=== PATIENT | female | born 1945 | race Caucasian/White ===

== ENCOUNTER 2016-08-30 08:03 | Day surgery (SDC) | payer MEDICARE ==
[~2016-08-30] VITALS: Ht 161.3 cm; Wt 69.6 kg
[~2016-08-30 08:03] MED LIST: AMBIEN10 MG PO; ATORVASTATIN CA20 MG PO; BUSPIRONE HCL5 MG PO; CALCIUM CITRAT1 EA14 PO; GABAPENTIN300 MG PO; MELOXICAM15 MG PO; OMEPRAZOLE40 MG PO; ONDANSETRON ODT4 MG SL; VITAMIN D34000 UNIT PO
[2016-08-30] MEDS ORDERED: GABAPENTIN100 MG PO (08:24)
--- NOTE | 2016-08-30 11:00 | NUR ---
08/30/16 1100 Sarah Velazquez 1055 PATIENT IS RESTING WITH EYES CLOSED. OPENS EYES AND ANSWERS QUESTIONS APPROPRIATELY WITH STIMULI. C/O ABD CRAMPING, ENCOURAGED TO PASS GAS. ABD DISTENDED. NC AT 2 LITERS. 1100 PATIENT TAKING SIPS OF WATER, DENIES NAUSEA. ROOM AIR AT 95%
--- NOTE | 2016-10-05 10:25 | OR ---
[facility] [address] [place], [place] [address] Signed DATE OF PROCEDURE: 08/30/16 PREOPERATIVE DIAGNOSES Diarrhea. History of colonic polyp, rectosigmoid in 2008, and known diverticulosis. POSTOPERATIVE DIAGNOSIS: Sigmoid diverticulosis. PROCEDURE: Total colonoscopy of cecum. ANESTHESIA: Intravenous sedation, Fentanyl 150 mcg, Versed 7 mg. INDICATION This 70-year-old white woman is a patient of Lisa Vázquez PA-C, and has had complaints of diarrhea. There was no blood per rectum. She underwent a colonoscopy in [address] Mitchell Valverde, and possibly a repeat in 2010, though I am not entirely sure. She has had left lower abdominal pain in the past and currently has occasions of diarrhea but without associated bleeding. She has no family history of colon cancer. She is admitted to undergo a surveillance colonoscopy and understands the risk of bleeding, infection, perforation. FINDINGS Prep was quite good. Complete colonoscopy was undertaken to the cecum. There was no evidence of polyps or colitis. She did have diverticulosis of the sigmoid. DESCRIPTION OF PROCEDURE The patient was brought to the endoscopy suite and placed in the lateral decubitus position, given intravenous sedation to the point of slurred speech and nystagmus. Digital rectal examination was normal. An Olympus video colonoscop e was passed in the rectum and manipulated throughout the colon ultimately intubating the cecum itself. The tissue behind the ileocecal valve was grasped and elevated to be sure there was no sign of polyp behind it. The scope was withdrawn from that point , and examination throughout showed no sign of abnormality until the sigmoid or diverticula were noted. There was no sign of ongoing inflammation, stricture, or other problem. Retroflex view of the rectum was normal. The scope was removed, and the patient was taken to the recovery room in good condition. CONCLUDING DIAGNOSES: Diverticulosis, no evidence of polyps or colitis. PLAN Recommended high-fiber diet or Citrucel 1 tablespoon p.o. daily. Electronically Signed By: GABRIELLA ATKINS MD 10/05/16 1025 PATIENT NAME: EDER NIX OPERATIVE REPORT DATE OF : 41 PHYSICIAN: GABRIELLA ATKINS MD REPORT #: [id number] REPORT IS CONFIDENTIAL AND NOT TO BE RELEASED WITHOUT AUTHORIZATION [address] [place], [place] [address] Signed She will return to the ongoing care of RO Ramos. I am happy to see her again as needed. MD KINZA Deleon/Dilshad /[id number] cc: Lisa Vázquez PA-C Electronically Signed By: GABRIELLA ATKINS MD 10/05/16 1025 PATIENT NAME: EDER NIX OPERATIVE REPORT DATE OF : 41 PHYSICIAN: GABRIELLA ATKINS MD REPORT #: [id number] REPORT IS CONFIDENTIAL AND NOT TO BE RELEASED WITHOUT AUTHORIZATION
== END 2016-08-30 11:30 | disposition home or self-care (01) ==
LOC: DS 08:03 → OPS 08:03 → DS 09:00 → OPS 09:00 → DS 10:00 → OPS 11:30
PROVIDERS: Surgery
PROC: 0DJD8ZZ Inspection of Lower Intestinal Tract, Via Natural or Artificial Opening Endoscopic (ICD-10-PCS; principal; 2016-08-30 09:00)
DX: K57.30 Diverticulosis of large intestine without perforation or abscess without bleeding (principal); K21.9 Gastro-esophageal reflux disease without esophagitis; Z86.010 Personal history of colon polyps; Z85.3 Personal history of malignant neoplasm of breast; Z85.528 Personal history of other malignant neoplasm of kidney; Z88.1 Allergy status to other antibiotic agents; Z90.710 Acquired absence of both cervix and uterus; Z90.13 Acquired absence of bilateral breasts and nipples; Z98.41 Cataract extraction status, right eye; Z98.42 Cataract extraction status, left eye; Z98.890 Other specified postprocedural states
CPT/HCPCS: 99152; 99153; J2250; J3010; J7120

== ENCOUNTER 2018-12-21 12:59 | Day surgery (SDC) | payer MEDICARE ==
[~2018-12-21] VITALS: Ht 161.3 cm; Wt 69.4 kg
--- NOTE | ~2018-12-21 | OR ---
[facility] [address] [place], [place] [address] Draft DATE OF OPERATION: 12/21/2018 SURGEON: Gabriella Atkins MD PREOPERATIVE DIAGNOSIS: Cervical dysphagia with excessive "phlegm" and upper gastrointestinal symptoms of bloating. POSTOPERATIVE DIAGNOSES: 1. Small hiatal hernia. 2. Mild distal esophagitis with minimal length Suarez epithelium. PROCEDURE PERFORMED: Esophagogastroduodenoscopy with biopsy. ANESTHESIA: Intravenous sedation, fentanyl 100 mcg, Versed 3 mg. INDICATIONS: A 73-year-old white woman is a patient of Valencia Urias MD, at [facility]. She is known to me from the past. She has vague and nonspecific symptoms of upper abdominal bloating. The patient takes omeprazole 40 mg daily already. She has been noted to have short-segment Suarez epithelium on previous upper endoscopy. She continues to take omeprazole on a daily basis. She is admitted to undergo upper endoscopy to better characterize her symptoms of excessive phlegm and cervical dysphagia. She understands the risk of bleeding, infection, and perforation. FINDINGS: There are no anatomic findings to account for any cervical dysphagia. Biopsies were taken in the midesophagus to assess for eosinophilic esophagitis. She does have a small hiatal hernia and very short segment Suarez epithelium, but nothing worrisome in appearance. Stomach and duodenum appeared normal. Biopsies were obtained. She does have a small hiatal hernia. The vocal cords appeared normal. There is no proximal anatomic abnormality of tumor or other similar problem. DESCRIPTION OF PROCEDURE: The patient was brought to the endoscopy suite, given topical Hurricaine spray, hypopharyngeal anesthesia, and placed in lateral decubitus position. She was given intravenous sedation to the point of slurred speech and nystagmus. A bite block was placed. An Olympus video upper endoscope was passed in the hypopharynx. Vocal cords PATIENT NAME: EDER NIX OPERATIVE REPORT DATE OF : 41 REPORT #: [id number] PHYSICIAN: GABRIELLA ATKINS MD PCP: VALENCIA URIAS MD REPORT IS CONFIDENTIAL AND NOT TO BE RELEASED WITHOUT AUTHORIZATION [facility] [address] [place], [place] [address] Draft visualized as normal overall. There was no sign of excessive phlegm or secretions at this time. Scope was advanced to the esophagus without problem, passing down the esophagus which appeared normal. The distal portion showed a Suarez like epithelial segment, not extensively long. Narrow band imaging was undertaken to ascertain this. The scope was then passed in the stomach, which was insufflated with air. There was no sign of bile within the stomach. Rugal folds appeared normal. Pylorus was normal. Scope was passed through into the duodenum, which was normal. Biopsies were taken of the duodenum to assess for celiac disease and withdrawn and biopsies then taken of the antrum for both FUNMILAYO and pathologic testing. Retroflexed view showed a small hiatal hernia, but not much early. Scope was withdrawn to the distal esophagus. Biopsies were taken of the distal esophageal mucosa, which did not have the "Z-line appearance," but rather a straight-line appearance. Withdrawal of scope to the mid esophagus allowed for biopsy to assess for eosinophilic esophagitis and biopsies undertaken of more proximal esophagus as well. Careful inspection of the hypopharynx showed no sign of lesion. The scope was ultimately removed. The patient was taken to recovery room in good condition. CONCLUDING DIAGNOSIS: No evidence of stricture or neoplasm of proximal or distal esophagus to account for her current symptoms of excess of phlegm and cervical dysphagia. PLAN: We will await the biopsies regarding the esophagus in particular to assess for eosinophilic esophagitis. In the meantime, we will recommend continued use of omeprazole 40 mg daily. She will call and follow up for 6 weeks or so. MD KINZA Deleon/MODL /[id number] cc: Valencia Urias MD Copies: VALENCIA URIAS DMD PATIENT NAME: EDER NIX OPERATIVE REPORT DATE OF : 41 REPORT #: [id number] PHYSICIAN: GABRIELLA ATKINS MD PCP: VALENCIA URIAS MD REPORT IS CONFIDENTIAL AND NOT TO BE RELEASED WITHOUT AUTHORIZATION [facility] [address] [place] [address] [place], [place] [address] Draft ~ PATIENT NAME: EDER NIX OPERATIVE REPORT DATE OF : 41 REPORT #: [id number] PHYSICIAN: GABRIELLA ATKINS MD PCP: VALENCIA URIAS MD REPORT IS CONFIDENTIAL AND NOT TO BE RELEASED WITHOUT AUTHORIZATION
[~2018-12-21 12:59] MED LIST changes: +GABAPENTIN100 MG PO
--- NOTE | 2018-12-21 14:26 | NUR ---
12/21/18 1426 Danna Culver 1413- PT ARRIVES TO PACU AWAKE, ALTHOUGH DROWSY. RESP EVEN AND UNLABORED. OXYGEN SAT HIGH 90'S TO 100% ON 2L VIA NC. PT REPORTS NO PAIN OR NAUSEA. 1416- PT PASSING FLATUS. 1422- DR. ATKINS AT THE BEDSIDE TO TALK WITH THE PT. 1424- OXYGEN TITRATED OFF.
--- NOTE | 2018-12-22 13:17 | PATH ---
[facility] [address] [place], [place] [address] Signed SPECIMEN(S): A DUODENUM SPECIMEN(S): B ANTRUM SPECIMEN(S): C GASTRIC POLYP SPECIMEN(S): D DISTAL LOWER ESOPHAGUS SPECIMEN(S): E MIDDLE ESOPHAGUS SPECIMEN SOURCE: A. DUODENUM B. ANTRUM C. GASTRIC POLYP D. DISTAL LOWER ESOPHAGUS E. MIDDLE ESOPHAGUS CLINICAL HISTORY: Preop: Suarez's esophagus. Postop: Small hiatal hernia, mild esophagitis. MICROSCOPIC DESCRIPTION: A, B, C. Histologic sections of all submitted blocks are examined by light microscopy. These findings, together with the gross examination, support the pathologic diagnosis. D. Sections reveal a biopsy of esophageal mucosa composed of stratified squamous nonkeratinizing epithelium. The basal cell layer is not prominent and rete ridges are not elongated. A few intraepithelial lymphocytes are present. Intraepithelial eosinophils are not a feature. No glandular mucosa is present. There is no evidence of malignancy or atypia. E. Sections reveal a biopsy of esophageal mucosa histologically similar to that described above in D. There is no evidence of malignancy or atypia. LJA:cml FINAL PATHOLOGIC DIAGNOSIS: A. Mucosa, duodenum, biopsy: - Duodenal mucosa with normal villiform architecture, no microscopic pathologic diagnosis. B. Mucosa, antrum, biopsy: - No microscopic pathologic diagnosis. - Negative for the presence of bacteria morphologically consistent with Helicobacter on HE stained sections. C. Mucosa, stomach, biopsy: - Fundic gland polyp. - Negative for malignancy and atypia. D. Mucosa, distal lower esophagus, biopsy: PATIENT NAME: EDER NIX PATHOLOGY DATE OF : 41 REPORT #: [id number] PHYSICIAN: DWAYNE CORTES PCP: VALENCIA URIAS MD REPORT IS CONFIDENTIAL AND NOT TO BE RELEASED WITHOUT AUTHORIZATION [facility] [address] [place], [place] [address] Signed - No microscopic pathologic diagnosis. E. Mucosa, mid esophagus, biopsy: - No microscopic pathologic diagnosis. LJA:cml:C2NR GROSS DESCRIPTION: Five specimens are received in five containers, labeled "RA." A. The specimen, labeled "RA, duodenal biopsy," is received in formalin and consists of two pink-blackman soft tissue fragment(s) that measure 0.2-0.3 cm in greatest dimension. The specimen is entirely submitted in cassette (A1). B. The specimen, labeled "RA, antrum biopsy," is received in formalin and consists of two pink-blackman soft tissue fragment(s) that measure 0.2-0.3 cm in greatest dimension. The specimen is entirely submitted in cassette (B1). C. The specimen, labeled "RA, gastric polyp," is received in formalin and consists of one pink-blackman soft tissue fragment that measures 0.2 cm in greatest dimension. The specimen is entirely submitted in cassette (C1). D. The specimen, labeled "RA, distal esophagus biopsy," is received in formalin and consists of one pink-blackman soft tissue fragment that measures 0.2 cm in greatest dimension. The specimen is entirely submitted in cassette (D1). E. The specimen, labeled "RA, middle esophagus biopsy," is received in formalin and consists of two pink-blackman soft tissue fragment(s) that measure 0.2-0.3 cm in greatest dimension. The specimen is entirely submitted in cassette (E1). JS (under the direct supervision of a pathologist) The Gross Description was prepared using a voice recognition system. The report was reviewed for accuracy; however, sound-alike word errors, addition and/or deletions may occur. If there is any question about this report, please contact Client Services. PERFORMING LABORATORY: The technical component was performed by [id number] [address] (Can Pusher: Margaux Felder MD; CLIA# [id number]). Professional interpretation was performed by [facility], [address] [address] (Can Pusher: Jose Dutta MD; CLIA# [id number]). PATIENT NAME: EDER NIX PATHOLOGY DATE OF : 41 REPORT #: [id number] PHYSICIAN: DWAYNE CORTES PCP: VALENCIA URIAS MD REPORT IS CONFIDENTIAL AND NOT TO BE RELEASED WITHOUT AUTHORIZATION [facility] [address] [place], [place] [address] Signed Diagnostician: Jose Dutta MD Pathologist Electronically Signed 12/22/2018 Copies: ~ PATIENT NAME: EDER NIX PATHOLOGY DATE OF : 41 REPORT #: [id number] PHYSICIAN: DWAYNE PATHOLOGY PCP: VALENCIA URIAS MD REPORT IS CONFIDENTIAL AND NOT TO BE RELEASED WITHOUT AUTHORIZATION
== END 2018-12-21 15:10 | disposition home or self-care (01) ==
LOC: OPS 12:59 → DS 13:03 → OPS 14:00
PROVIDERS: Surgery
PROC: 0DB78ZX Excision of Stomach, Pylorus, Via Natural or Artificial Opening Endoscopic, Diagnostic (ICD-10-PCS; 2018-12-21)
PROC: 0DB68ZX Excision of Stomach, Via Natural or Artificial Opening Endoscopic, Diagnostic (ICD-10-PCS; 2018-12-21)
PROC: 0DB38ZX Excision of Lower Esophagus, Via Natural or Artificial Opening Endoscopic, Diagnostic (ICD-10-PCS; 2018-12-21)
PROC: 0DB28ZX Excision of Middle Esophagus, Via Natural or Artificial Opening Endoscopic, Diagnostic (ICD-10-PCS; 2018-12-21)
PROC: 0DB98ZX Excision of Duodenum, Via Natural or Artificial Opening Endoscopic, Diagnostic (ICD-10-PCS; principal; 2018-12-21 14:00)
DX: K31.7 Polyp of stomach and duodenum (principal); K21.0 Gastro-esophageal reflux disease with esophagitis; K22.70 Barrett's esophagus without dysplasia; K44.9 Diaphragmatic hernia without obstruction or gangrene; Z88.1 Allergy status to other antibiotic agents; Z85.3 Personal history of malignant neoplasm of breast; Z85.528 Personal history of other malignant neoplasm of kidney
CPT/HCPCS: 99153; G0500; J2250; J3010; J7120

== ENCOUNTER 2019-06-13 07:18 | Emergency (ER) | payer MEDICARE ==
[~2019-06-13] VITALS: Ht 161.3 cm; Wt 67.6 kg
--- OUTSIDE RECORDS SUMMARY | 2019-06-13 07:22 | XMS ---
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 Gadiel has no Care Guidelines for this patient. Ángel VISIT COUNT (12 MO.) 1 KRISTEN Adam TOTAL 1 NOTE: Visits indicate total known visits. ED/UCC VISIT TRACKING (12 MO.) 06/13/2019 07:19 KRISTEN Martel [place] TYPE: Emergency COMPLAINT: - ABD / BACK PAIN INPATIENT VISIT TRACKING (12 MO.) No inpatient visits to display in this time frame [email or web address]
[2019-06-13] MEDS ORDERED: BUSPIRONE HCL5 MG PO (07:50)
[2019-06-13] MEDS ORDERED: METHOCARBAMOL500 MG PO (07:50)
[2019-06-13] MEDS ORDERED: FLOMAX0.4 MG PO (10:17)
[2019-06-13] MEDS ORDERED: NORCO 5-325 TA1 EACH PO (10:17)
[2019-06-13] MEDS ORDERED: ONDANSETRON ODT4 MG SL (10:17)
== END 2019-06-13 12:45 | disposition home or self-care (01) ==
LOC: ED 07:18
DX: N13.2 Hydronephrosis with renal and ureteral calculous obstruction (principal); F41.9 Anxiety disorder, unspecified; Z88.1 Allergy status to other antibiotic agents; Z79.899 Other long term (current) drug therapy
CPT/HCPCS: 74176; 80053; 81001; 85025; 96361; 96374; 96375; 96376; 99284-25; J1885; J2270; J2405; J2550; J7040

== ENCOUNTER 2019-08-30 11:52 | Emergency (ER) | payer MEDICARE ==
[~2019-08-30] VITALS: Ht 161.3 cm; Wt 67.8 kg
--- OUTSIDE RECORDS SUMMARY | ~2019-08-30 | XMS | Encounter Summary ---
Demographics + + + | Address | [address] | | | [place] [address] | + + + | Home Phone | | + + + | Preferred Language | Unknown | + + + | Marital Status | | + + + | Spiritism Affiliation | CHR | + + + | Race | White | + + + | Ethnic Group | Not or | + + + Author + + + | Author | [facility] | + + + | Organization | [facility] | + + + | Address | Unknown | + + + | Phone | Unavailable | + + + Support + + + + + | Name | Relationship | Address | Phone | + + + + + | Taye Dennis | ECON | [address] | | | | | [place] | | | | | [address] | | + + + + + Care Team Providers + +------+ + | Care Security Coordinator Name | Role | Phone | + +------+ + | Miriam Treadwell | PCP | | + +------+ + Encounter Details +--------+ + + + + | Date | Type | Department | Care Team | Description | +--------+ + + + + | 04/10/ | Document-Sc | UNKNOWN DEPARTMENT | Unknown . | | | 2016 | anned | [address] | | | | | | [address] | | | | | | [place] | | | | | | [address] | | | +--------+ + + + + Social History + +-------+ +--------+------+ | Tobacco Use | Types | Packs/Day | Years | Date | | | | | Used | | + +-------+ +--------+------+ | Never Assessed | | | | | + +-------+ +--------+------+ + + + | Sex Assigned at | Date Recorded | | | | + + + | Not on file | | + + + + + + + | Job Start Date | Occupation | Industry | + + + + | Not on file | Not on file | Not on file | + + + + + + + + | Travel History | Travel Start | Travel End | + + + + + + | No recent travel history available. | + + documented as of this encounter Plan of Treatment Not on filedocumented as of this encounter Procedures + +--------+ + + + | Procedure Name | Priori | Date/Time | Associated Diagnosis | Comments | | | ty | | | | + +--------+ + + + | RADIOLOGY | | 04/10/2015 | | Results for this | | | | 12:00 AM | | procedure are in the | | | | PST | | results section. | + +--------+ + + + documented in this encounter Results RADIOLOGY (04/10/2015 12:00 AM PST) + + + | Narrative | Performed At | + + + | | | + + + documented in this encounter Visit Diagnoses Not on filedocumented in this encounter"
--- OUTSIDE RECORDS SUMMARY | ~2019-08-30 | XMS | Encounter Summary ---
Demographics + + + | Address | [address] | | | [place] [address] | + + + | Home Phone | | + + + | Preferred Language | Unknown | + + + | Marital Status | | + + + | Hinduism Affiliation | CHR | + + + | Race | White | + + + | Ethnic Group | Not or | + + + Author + + + | Author | [facility] | + + + | Organization | [facility] | + + + | Address | Unknown | + + + | Phone | Unavailable | + + + Support + + + + + | Name | Relationship | Address | Phone | + + + + + | Taye Dennis | ECON | [address] | | | | | [place] | | | | | [address] | | + + + + + Care Team Providers + +------+ + | Care Qa Analyst Name | Role | Phone | + +------+ + | Miriam Treadwell | PCP | | + +------+ + Reason for Visit +--------+ + | Reason | Comments | +--------+ + | Other | | +--------+ + Encounter Details +--------+ + + + + | Date | Type | Department | Care Team | Description | +--------+ + + + + | 08/21/ | Telephone | Orthopaedics at | Suman Gavin, | Other | | 2016 | | [facility] [address] | MD [address] | | | | | [address] | [place], [place] | | | | | Mailcode: [id number] | [address] | | | | | [facility] | [phone] | | | | | [place], [place] | | | | | | [address] | | | | | | [phone] | | | +--------+ + + + + Social History + +-------+ +--------+------+ | Tobacco Use | Types | Packs/Day | Years | Date | | | | | Used | | + +-------+ +--------+------+ | Never Smoker | | | | | + +-------+ +--------+------+ + +---+---+---+ | Smokeless Tobacco: | | | | | Never Used | | | | + +---+---+---+ + + +---------+ + | Alcohol Use | Drinks/Week | oz/Week | Comments | + + +---------+ + | No | 0 Standard drinks | 0.0 | | | | or equivalent | | | + + +---------+ + + + + | Sex Assigned at [...] Not on filedocumented as of this encounter Visit Diagnoses Not on filedocumented in this encounter"
--- OUTSIDE RECORDS SUMMARY | ~2019-08-30 | XMS | Clinical Summary ---
Demographics + + + | Address | [address] | | | [place] [address] | + + + | Home Phone | | + + + | Preferred Language | Unknown | + + + | Marital Status | | + + + | Moravian Affiliation | 1041 | + + + | Race | Unknown | + + + | Ethnic Group | Unknown | + + + Author + + + | Author | [facility] | | | and [place] | + + + | Organization | [facility] | | | and Sameerana | + + + | Address | Unknown | + + + | Phone | Unavailable | + + + Support + + + + + | Name | Relationship | Address | Phone | + + + + + | Bossman Renee | ECON | [address] | | | | | [place], [place] | | | | | [address] | | + + + + + | Bayron Dennis | ECON | [address] | | | | | [place], [place] | | | | | [address] | | + + + + + Care Team Providers + +------+ + | Care Family Services Manager Name | Role | Phone | + +------+ + | Raymundo Anderson | PCP | | + +------+ + Allergies + + + + + + | Active Allergy | Reactions | Severity | Noted | Comments | | | | | Date | | + + + + + + | Ciprofloxacin | Unknown | | 05/22/19 | | | | | | 16 | | + + + + + + | Codeine | Nausea And Vomiting | Low | 04/28/19 | | | | | | 15 | | + + + + + + | Metronidazole | Unknown | | 05/22/19 | | | | | | 16 | | + + + + + + | Trazodone | | | 05/27/19 | lethargy | | | | | 13 | | + + + + + + Medications + + + +---------+------+------+-------+ | Medication | Sig | Dispensed | Refills | Star | End | Statu | | | | | | t | Date | s | | | | | | Date | | | + + + +---------+------+------+-------+ | cholecalciferol | Take 1,000 Units by | | 0 | 09/1 | | Activ | | ([facility] VITAMIN D3) | mouth 2 times daily. | | | 2/20 | | e | | 1000 UNITS CAPS | | | | 12 | | | + + + +---------+------+------+-------+ | omeprazole | Take 40 mg by mouth | | 0 | 09/1 | | Activ | | (PRILOSEC) 40 MG | Daily. | | | 2/20 | | e | | capsule | | | | 12 | | | + + + +---------+------+------+-------+ | calcium | Take by mouth 2 | | 0 | 09/1 | | Activ | | citrate-vitamin D | times daily. | | | 2/20 | | e | | (CITRACAL MAXIMUM) | | | | 12 | | | | 315-250 MG-UNIT TABS | | | | | | | + + + +---------+------+------+-------+ | Cyanocobalamin | Take 1,000 mcg by | | 0 | 11/01 | | Activ | | (B-12 TR) 1000 MCG | mouth Daily. | | | 220 | | e | | TBCR | | | | 12 | | | + + + +---------+------+------+-------+ | zolpidem (AMBIEN) | Take 1 tablet by | 30 | 3 | 12/01 | | Activ | | 10 mg tablet | mouth nightly as | tablet | | 08/20 | | e | | | needed. | | | 12 | | | + + + +---------+------+------+-------+ +---+ + | | Additional | | | InformationPatient | | | taking differently: | | | 5 mg Oral NIGHTLY | | | PRN, Reported on | | | 02/17/2019 9:36 AM | +---+ + + + +---+---+------+---+-------+ | methocarbamol | TAKE 1 TABLET BY | | 0 | 08/0 | | Activ | | (ROBAXIN) 500 mg | MOUTH EVERY 6 HOURS | | | 8/20 | | e | | tablet | NEEDED FOR MUSCLE | | | 19 | | | | | SPASM | | | | | | + + +---+---+------+---+-------+ | busPIRone (BUSPAR) | TAKE 1 TABLET BY | | 0 | 12/0 | | Activ | | 5 mg tablet | MOUTH THREE TIMES | | | 5/20 | | e | | | DAILY | | | 19 | | | + + +---+---+------+---+-------+ | acetaminophen | Take 650 mg by | | 0 | | | Activ | | (TYLENOL) 325 mg | mouth. | | | | | e | | tablet | | | | | | | + + +---+---+------+---+-------+ | gabapentin | Take 200 mg by | | 0 | 06/1 | | Activ | | (NEURONTIN) 100 mg | mouth. | | | 5/20 | | e | | capsule | | | | 16 | | | + + +---+---+------+---+-------+ | atorvaSTATin | Take 20 mg by mouth | | 0 | | | Activ | | (LIPITOR) 20 mg | nightly. | | | | | e | | tablet | | | | | | | + + +---+---+------+---+-------+ | CALCIUM-MAGNESIUM | Take 100 mg by | | 0 | | | Activ | | PO | mouth. | | | | | e | + + +---+---+------+---+-------+ | fluticasone | 1 spray by Nasal | | 0 | | | Activ | | (FLONASE) 50 | route Daily. 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 | + + + | SNORING | 05/14/2011 | + + + | HYPERCHOLESTEROLEMIA | 05/14/2011 | + + + | RESTLESS LEG SYNDROME | 05/14/2011 | + + + | OTHER ANXIETY STATES | 05/14/2011 | + + + | ORGANIC INSOMNIA UNSPECIFIED | 05/14/2011 | + + + + + | Overview: ICD-10 Record update | + + + + + | Renal cell carcinoma | 03/20/2005 | + + + + + | Overview: Laparoscopic partial nephrectomy performed 03/12/05 | + + Family History + + +------+ + | Medical History | Relation | Name | Comments | + + +------+ + | Alcohol abuse | Mother | | | + + +------+ + | Depression | Mother | | | + + +------+ + | Depression | Sister | | BiPolar Disorder | + + +------+ + | Drug abuse | Sister | | | + + +------+ + | Obesity | Sister | | | + + +------+ + + +------+ + + | Relation | Name | Status | Comments | + +------+ + + | Father | | | of "old age" | | | | (Age | | | | | 92) | | + +------+ + + | Maternal Aunt | | Alive | | + +------+ + + | Mother | | | alcoholism and bipolar | | | | (Age | | | | | 71) | | + +------+ + + | Sister | | Alive | | + +------+ + + | Son | | Alive | | + +------+ + + Social History + +-------+ +--------+------+ [...] + + +---------+ + | No | | | | + + +---------+ + + + + | Sex Assigned at | Date Recorded | | | | + + + | Not on file | | + + + Last Filed Vital Signs + + + + + | Vital Sign | Reading | Time Taken | Comments | + + + + + | Blood Pressure | 130/80 | 05/28/2012 9:19 AM | | | | | PDT | | + + + + + | Pulse | 74 | 05/28/2012 9:19 AM | | | | | PDT | | + + + + + | Temperature | 36.6 C (97.8 F) | 05/28/2012 9:19 AM | | | | | PDT | | + + + + + | Respiratory Rate | 16 | 05/28/2012 9:19 AM | | | | | PDT | | + + + + + | Oxygen Saturation | - | - | | + + + + + | Inhaled Oxygen | - | - | | | Concentration | | | | + + + + + | Weight | 69.9 kg (154 lb) | 02/17/2019 9:22 AM | | | | | PST | | + + + + + | Height | 161.3 cm (5' 3.5") | 02/17/2019 9:22 AM | | | | | PST | | + + + + + | Body Mass Index | 26.85 | 02/17/2019 9:22 AM | | | | | PST | | + + + + + Plan of Treatment + + + + + | Health Maintenance | Due Date | Last | Comments | | | | Done | | + + + + + | Vaccine: | | | | | Dtap/Tdap/Td (1 - | 3 | | | | Tdap) | | | | + + + + + | Vaccine: | | | | | Pneumococcal 65+ (1 | 9 | | | | of 1 - PPSV23) | | | | + + + + + | Vaccine: Zoster (2 | | 04/09/19 | | | of 3) | 9 | 19 | | + + + + + | Colorectal Cancer | | 11/25/19 | | | Screening | 9 | 09 | | | (Colonoscopy) | | | | + + + + + | Adult Annual | | | | | Wellness Visit | 9 | | | + + + + + | Vaccine: Influenza | Completed | 12/01/19 | | | | | 19, | | | | | 12/06/19 | | | | | 18, | | | | | 11/30/19 | | | | | 17, | | | | | Addition | | | | | al | | | | | history | | | | | exists | | + + + + + Results Not on filefrom Last 3 Months Insurance + +--------+ +--------+ +---------+--------+ | Payer | Benefi | Subscriber | Effect | Phone | Address | Type | | | t Plan | ID | yovany | | | | | | / | | Dates | | | | | | Group | | | | | | + +--------+ +--------+ +---------+--------+ | MEDICARE | MEDICA | [id number] | 08/02/19 | [phone] | | Medica | | | RE | | 09-Pre | 5 | | re | | | PART A | | sent | | | | | | AND B | | | | | | + +--------+ +--------+ +---------+--------+ | AARP | AARP | [id number] | 03/03/19 | [phone] | | Indemn | | | MDCR | | 11-Pre | 0 | | ity | | | SUPPL | | sent | | | | + +--------+ +--------+ +---------+--------+ + +--------+ +--------+ + + | Guarantor Name | Accoun | Relation to | Date | Phone | Billing Address | | | t Type | Patient | of | | | | | | | | | | + +--------+ +--------+ + + | Judi Dennis T | Person | Self [birth year] | [address] | | [address] | | 1946 | [phone] | [place] [address] | | | henry | | | 0 (Home) | | + +--------+ +--------+ + + Advance Directives + + + + + | Type | Date Recorded | Patient | Explanation | | | | Staff Technologist | | + + + + + | Power of | | | | | Physiology Teacher | | | | + + + + + | Advance | | | | | Directive | | | | + + + + +
--- OUTSIDE RECORDS SUMMARY | ~2019-08-30 | XMS | Encounter Summary ---
Demographics + + + | Address | [address] | | | [place] [address] | + + + | Home Phone | | + + + | Preferred Language | Unknown | + + + | Marital Status | | + + + | Hinduism Affiliation | CHR | + + + | Race | White | + + + | Ethnic Group | Not or | + + + Author + + + | Author | [facility] | + + + | Organization | [facility] | + + + | Address | Unknown | + + + | Phone | Unavailable | + + + Support + + + + + | Name | Relationship | Address | Phone | + + + + + | Taye Dennis | ECON | [address] | | | | | [place] | | | | | [address] | | + + + + + Care Team Providers + +------+ + | Care Fire Equipment Operator Name | Role | Phone | + +------+ + | Miriam Treadwell | PCP | | + +------+ + Encounter Details +--------+---------+ + + + | Date | Type | Department | Care Team | Description | +--------+---------+ + + + | 07/04/ | Office | Preoperative | Adelaida Maxwell, | Preop examination | | 2016 | Visit | Medicine Clinic at | COMMUNITY SERVICE OFFICER COORDINATOR [address] | (Primary Dx) | | | | MPV 4th Floor Day | [address] | | | | | Stay [address] | [place], [place] | | | | | [address] | [address] | | | | | Mailcode: [id number] | [phone] | | | | | Boris Hillman | | | | | | [address] [place], [place] | | | | | | [address] | | | | | | [phone] | | | +--------+---------+ + + + Anesthesia Record + + + + + | Procedure Name | Responsible | Anesthesia Start | Anesthesia Stop Time | | | Anesthesiologist | Time | | + + + + + | ARTHROSCOPYIC | Neel Díaz MD | 07/06/15 0727 | 07/06/15 1117 | | DEBRIDEMENT OF | | | | | SYNOVITIS RIGHT | | | | | ANTERIOR KNEE; OPEN | | | | | SYNOVECTOMY OF RIGHT | | | | | POSTERIOR KNEE AND | | | | | (Right Knee) | | | | + + + + + +----+---+ + + | Da | T | Event | Comment | | te | i | | | | | m | | | | | e | | | +----+---+ + + | 05 | 0 | Eq Check | Anesthesia machine checked Equipment verified | | /0 | 7 | | | | 5/ | 2 | | | | 20 | 0 | | | | 16 | | | | +----+---+ + + | | 0 | Pt. Check | Prior to anesthesia start, pt. Identified, examined, chart | | | 7 | | reviewed, PARQ held, anesthetic plan made or approved by | | | 2 | | attending anesthesiologist. NPO status confirmed as appropriate | | | 0 | | for procedure Preoperative evaluation: unchanged | +----+---+ + + | | 0 | An Start | | | | 7 | | | | | 2 | | | | | 7 | | | +----+---+ + + | | 0 | Quick Note | Umm Abdalla RECOVERY OPERATOR HELPER | | | 7 | | | | | 2 | | | | | 7 | | | +----+---+ + + | | 0 | An Start | | | | 7 | Data | | | | 3 | | | | | 0 | | | +----+---+ + + | | 0 | Eq Check | Anesthesia machine checked Equipment verified | | | 7 | | | | | 3 | | | | | 1 | | | +----+---+ + + | | 0 | Vitals | Monitors applied Vital signs checked Patient ready for anesthesia | | | 7 | Checked | | | | 3 | | | | | 1 | | | +----+---+ + + | | 0 | Std. Airway | | | | 7 | Mgt. | | | | 3 | | | | | 8 | | | +----+---+ + + | | 0 | Quick Note | OG tube placed | | | 7 | | | | | 4 | | | | | 0 | | | +----+---+ + + | | 0 | Abx | | | | 7 | Administere | | | | 4 | d | | | | 4 | | | +----+---+ + + | | 0 | Ready | | | | 7 | | | | | 4 | | | | | 4 | | | +----+---+ + + | | 0 | Timeout | | | | 8 | | | | | 0 | | | | | 3 | | | +----+---+ + + | | 0 | Incision | | | | 8 | | | | | 0 | | | | | 5 | | | +----+---+ + + | | 0 | an vania now | | | | 9 | | | | | 1 | | | | | 4 | | | +----+---+ + + | | 0 | Quick Note | Gauze placed in between patients tongue and metal holders. Turn | | | 9 | | prone head maintained in neutral position, on blue and white foam | | | 1 | | face pillow. Arms at pt sides during turn, superman arms on gel | | | 4 | | arm pads after turn. Face and eyes checked. Abdomen free of | | | | | pressure. Morris checked. Knees bent and feet padded. Bilat breath | | | | | sounds verified after turn. | +----+---+ + + | | 1 | Surgery end | | | | 1 | | | | | 0 | | | | | 4 | | | +----+---+ + + | | 1 | Quick Note | Jaw implant intact after turning the patient supine | | | 1 | | | | | 0 | | | | | 5 | | | +----+---+ + + | | 1 | An Extubate | Neuromuscular function Intact. Pharynx suctioned. Patient obeys | | | 1 | | commands. Adequate pulmonary mechanics. | | | 0 | | | | | 8 | | | +----+---+ + + | | 1 | an stop | | | | 1 | data | | | | 0 | | | | | 9 | | | +----+---+ + + | | 1 | Anesthesia | | | | 1 | End | | | | 1 | | | | | 7 | | | +----+---+ + + +------+ | Meds | +------+ + + + No medications | on file. | + + + + + | No agents on file. | + + + + | No blood administrations on file. | + + +--------+ + + + | Type | Details | Placement | Removal | +--------+ + + + | Periph | 07/06/15; 614; Right; Wrist; 20 | 07/06/15614 by | 07/07/15 0000 by | | eral | g; None; Positive; 07/07/15 | Kaylan Hayes RN | Bhargavi Echevarria RN | | IV | | | | +--------+ + + + | Urethr | 07/06/15; 39; Nolan Cordova RN; | 07/06/15 0739 by | 07/06/15 1035 by | | jazzy Morris; 16 Fr.; 5 mL; 07/06/15; | Renetta Lilly RN | Renetta Lilly RN | | [place] | 1035 | | | | er | | | | +--------+ + + + | Incisi | 07/06/15; 0903; Mery Gavin MD; | 07/06/15902 by | 12/20/16 0659 by | | on | Right; Anterior; knee; 12/20/16 | Renetta Lilly RN | Discontinued After | | | (Automatic cleanup per RA | | Discharge | | | 3006--contact admin for | | | | | questions.); 0659 (Automatic | | | | | cleanup per RA 3006--contact | | | | | admin for questions.) | | | +--------+ + + + | Incisi | 07/06/15; 0940; Right; Posterior; | 07/06/15 0940 by | 12/20/16 0659 by | | on | knee; 12/20/16 (Automatic | Servando Salguero RN | Discontinued After | | | cleanup per RA 3006--contact | | Discharge | | | admin for questions.); 0659 | | | | | (Automatic cleanup per RA | | | | | 3006--contact admin for | | | | | questions.) | | | +--------+ + + + | Incisi | 07/06/15; 0958; Mery De Luna MD; | 07/06/15957 by | 12/20/16 0659 by | | on | Right; Lateral, Anterior; knee; | Renetta Lilly RN | Discontinued After | | | 12/20/16 (Automatic cleanup per | | Discharge | | | RA 3006--contact admin for | | | | | questions.); 0659 (Automatic | | | | | cleanup per RA 3006--contact | | | | | admin for questions.) | | | +--------+ + + + | Incisi | 07/06/15; 0958; Mery Gavin MD; | 07/06/15 0958 by | 12/20/16 0659 by | | on | Right; Medial, Anterior; knee; | Renetta Lilly RN | Discontinued After | | | 12/20/16 (Automatic cleanup per | | Discharge | | | RA 3006--contact admin for | | | | | questions.); 0659 (Automatic | | | | | cleanup per RA 3006--contact | | | | | admin for questions.) | | | +--------+ + + + | Drain | 07/06/15; 1034; Mery Gavin MD; | 07/06/15 1034 by | 12/20/16 0659 by | | | Dylan (10 Fr.); Right; Posterior; | Renetta Lilly RN | Discontinued After | | | knee; 12/20/16 (Automatic | | Discharge | | | cleanup per RA 3006--contact | | | | | admin for questions.); 0659 | | | | | (Automatic cleanup per RA | | | | | 3006--contact admin for | | | | | questions.) | | | +--------+ + + + documented in this encounter Social History + +-------+ +--------+------+ | Tobacco [...] + + documented as of this encounter Last Filed Vital Signs + + + + + | Vital Sign | Reading | Time Taken | Comments | + + + + + | Blood Pressure | 132/78 | 07/05/2015 2:48 PM | | | | | PDT | | + + + + + | Pulse | 73 | 07/05/2015 1:53 PM | | | | | PDT | | + + + + + | Temperature | 36.9 C (98.4 F) | 07/05/2015 1:53 PM | | | | | PDT | | + + + + + | Respiratory Rate | 16 | 07/05/2015 1:53 PM | | | | | PDT | | + + + + + | Oxygen Saturation | 98% | 07/05/2015 1:53 PM | | | | | PDT | | + + + + + | Inhaled Oxygen | - | - | | | Concentration | | | | + + + + + | Weight | 71.2 kg (157 lb) | 07/05/2015 1:53 PM | | | | | PDT | | + + + + + | Height | 160 cm (5' 3") | 07/05/2015 1:53 PM | neck 31.5cm | | | | PDT | | + + + + + | Body Mass Index | 27.81 | 07/05/2015 1:53 PM | | | | | PDT | | + + + + + documented in this encounter Patient Instructions Patient Instructions Gladys Zafar - 07/05/2015 12:46 PM PDT PREOPERATIVE INSTRUCTIONS Empty stomach before surgery On the day BEFORE your surgery, drink plenty of fluids and stay well hydrated NOTHING to eat or drink after midnight the night before surgery. This includes water, coffee, candy, mints, gum. Medications Instructions On the evening before your surgery, take ALL your usual evening medications TAKE the following medications with a sip of water on the morning of surgery: Omeprazole Do NOT take the following medications on the morning of surgery: Vitamins or Minerals Other medications not specifically mentioned are at your discretion as to taking or not taking on the morning of surgery. Unless otherwise directed by your surgeon, do not take any Aspirin, vitamin E or non-marisa roidal anti-inflammatory (NSAIDs i.e. Advil, Aleve, Ibuprofen) or herbal supplements 7 days prior to your surgery. These drugs may interfere with normal blood clotting and may cause ex cessive bleeding and bruising during or after the surgery. If you need a pain medication for general purposes, use Tylenol as directed. OK to take it even on the morning of surgery, if needed. If you are in doubt about any medications that you are taking, please contact our office . Skin preparation to help avoid surgical site infections JANELL GUIDE TO GENERAL SKIN CLEANSING AT HOME BEFORE SURGERY Before you bathe or shower: ? Read the instructions given to you by your healthcare practitioner, and begin your genera l skin cleansing protocol as directed. ? Carefully read all directions on the product label. ? Hibiclens is not to be used on the head or face, keep out of the eyes, ears and mouth. ? Hibiclens is not to be used in the genital area. ? Hibiclens should not be used if you are allergic to chlorhexidine gluconate or any other ingredients in this preparation. *See Hibiclens label for full product information and precautions. When you bathe or shower the night before your surgery: ? If you plan to wash your hair, do so with your regular shampoo. Then rinse hair and body thoroughly to remove any shampoo residue. ? Wash your face with your regular soap or water only. ? Thoroughly rinse your body with warm water from neck down. ? Use Hibiclens as you would any other liquid soap. Please do not put the Hibiclens on a wa sh cloth, apply directly to the skin and wash gently. Apply the minimum amount of Hibiclens necessary to cover the skin. Leave the Hibiclens on your skin for 1 minute, then rinse off. ? Rinse thoroughly with warm water. ? Do not use your regular soap after applying and rinsing Hibiclens. When using Hibiclens for a second day in a row (morning of surgery, as soon as you wake up) : ? Shower/bathe again using Hibiclens in the same method as described above. ? Do not apply any lotions, deodorants, powders or perfumes to the body areas that have been cleaned with Hibiclens. Other Important Guidelines ? Do not shave the surgical area Do not smoke, drink alcohol or use recreational drugs for 24 hours before your surgery Watch for any change in your health condition. Let your surgeon know right away if you do not feel well. ? Do not wear makeup, perfume, lotions, deodorant, powder or hairspray. Do not wear any jewelry to the hospital. Wear loose, comfortable clothing. Leave all your valuables at home. Allow enough travel time so you re not late for your check in for surgery. ? Take a bath or shower and remember to shampoo your hair using your usual hair product bef ore your arrival at the hospital. Please remember to brush your teeth the night before and the morning of your procedure. Preventing post op complications while you are in the hospital Use an incentive spirometer or peep breathe to keep your lungs working properly an d to help prevent respiratory complications. It helps you take long, deep breaths. Use it at least once every hour while you are awake. Leg and feet exercises will maintain good circulation and help prevent blood clots in yo ur legs. Sometimes your doctor will order air compression stockings. Compressed air helps the circulation in your legs. Walking and moving will help stimulate normal circulation and deep breathing. After you r surgery, your nurse may ask you to sit, stand or walk. Surgery check-in location: Admitting - [facility], ninth floor lobby Surgery Check in Time: 5:30am Going Home Your surgical team will decide when you are medically ready to go home. If you stayed in the hospital after surgery, please arrange for your ride to come for yo u around 9AM on the day your doctor says you can go home. If you have questions or concerns after you go home, call your doctor s office. If it is after office hours, call the [facility] roving machine operator at [phone] and ask them to page him or h er. documented in this encounter Progress Notes Litzy Powers MA - 07/05/2015 2:21 PM PDT Venipuncture performed in clinic, blood sample obtained from Right forearm site Electronica lly signed by Litzy Powers MA at 07/05/2015 3:12 PM Adelaida Pineda FNP - 07/05/2015 2 :02 PM PDT PREOPERATIVE CONSULT NOTE Author: DACIA Salcedo Referring Physician: Suman Gavin MD Primary Care Provider: RO Lindsey Reason for Consult: Preoperative evaluation and risk assessment Proposed Procedure/Date: ARTHROSCOPY, DEBRIDEMENT SYNOVITIS RIGHT KNEE ANTERIOR; POSTERIOR SYNOVECTOMY RIGHT KNEE; EXPLORATION POPLITEAL VESSELS AND TIBIAL NERVE on 07/06/2015. HISTORY OF PRESENT ILLNESS: Judi Dennis is a 69 y.o. female here for preopera tive evaluation for above procedure. Pt has dx of SYNOVITIS, LIKELY PVNS RIGHT KNEE. Sympt oms related to the diagnosis: Patient with complains of Right knee pain. Pertinent medical history: Hyperlipidemia--well controlled on Atorvastatin. GERD--stable well managed with Omeprazole and diet; continue including morning day of medeiros rgery. Anxiety--well controlled with medication. Perioperative cardiac risks: None Functional Capacity: Moderate (4-10 mets) Prior complications of anesthesia: patient with PONV. No BP or blood draws in pt's Left arm . Deviated Right septum. ROS: Pulmonary: Hx of allergies. no cough no shortness of breath Pt. Has no asthma No dx of sleep apnea Cardiovascular: Walks a lot and works around her house, yard work. Denies sob, kirkpatrick or chest pain with activity or rest. Can do stairs but would experience pain in her Right knee. Able to lay flat on her back for 20-30 min at a time. Functional Capacity: Moderate - cyanosis, PND, palpitations, chest pressure and syncope no CAD no CHF no pacemaker GI/Hepatic: Hx of diverticulitis. no GI Bleed GERD Control: Well controlled No liver diseas e no hepatitis no OTHER GI : Hx of Renal cell carcinoma. Hx of kidney stones. no renal failure no dialysis Other : Types: genitourinary maligna ncy Endo: no Diabetes: Neurological: no seizures no HX CORTICOSTEROID psychiatric problem anxiety no dementia Current Pain Level: MS: arthritis Type: osteoarthritis Heme/Onc: Pt. has: no active bleeding no Bleeding diathesis / thrombotic bleeding Previous Transfusions: no transfusion hx Hx: no other heme, Malignancy: no cancer, Location: [place] is: Skin: No open wounds or sores No hx MRSA/VRE/Active skin infection Current medications reviewed / updated Current Medication List Name Sig ACETAMINOPHEN 325 MG TABLET Take 650 mg by mouth every four hours as needed. ATORVASTATIN 20 MG TABLET BUSPIRONE 5 MG TABLET OMEPRAZOLE 40 MG CAPSULE,DELAYED RELEASE Take by mouth. ZOLPIDEM 5 MG TABLET Allergies reviewed / updated Allergies Allergen Reactions Ciprofloxacin Unknown Metronidazole Unknown Past medical history reviewed / updated Past Medical History Diagnosis Date Renal cell carcinoma (HCC) 03/20/2005 Laparoscopic partial nephrectomy performed 03/12/05 Hyperlipemia Anxiety GERD (gastroesophageal reflux disease) Insomnia Past surgery reviewed and updated Past Surgical History Procedure Date Hysterectomy Jaw surgery 2001 implant Kidney surgery Carpal tunnel surgery Mastectomy complete 2002 Family history reviewed / updated Family History Problem Relation Cancer Father Cancer Mother Social history reviewed / updated History Substance Use Topics Smoking status: Never Smoker Smokeless tobacco: Never Used Alcohol Use: No PHYSICAL EXAM: Last Vitals: BP 132/78 | Pulse 73 | Temp (Src) 36.9 C (98.4 F) (Oral) | RR 16 | Ht 1.6 m (5' 3") | Wt 71.215 kg (157 lb) | SpO2 98% | BMI 27.82 kg/(m^2) Body mass index is 27.82 k g/(m^2). General: Patients general appearance: Healthy, Alert, No distress, Cooperative and Age appr opriate Head & Neck/Airway: NC/AT; PERRL; EOMI; nl appearing ears and nose. Neck ROM: full Neck Cir cumference: 31.5 cm. TM Distance:Normal Dentition: dentition is normal dentures-upper and dentures-lower Hatch: No Mallampati: II Mouth Opening: > = 3 cm C-Spine: normal Neck Anatomy: Normal Jaw Protrusio n: Normal, lower incisors can protrude past upper incisors Lung Exam: No respiratory distress. Normal breathing pattern. breath sounds normal Cardiac: No murmurs, gallops or rubs. Rhythm: regular Rate: normal Abdominal: General Findings: no abdominal tenderness and Nondistended Bowel Sounds: bowel s ounds are normal Musculoskeletal: Findings: tone normal Neuro/Psych: No focal neuro deficits; Alert and appropriate; nl affect. alert Findings: Press Set Up Person nial nerves 2-12 intact, Motor 5/5 strength globally with normal tone, Soft & sharp sensatio n normal, No tremor, Alert, oriented to person, place, time and Normal affect Integument: No open rashes or lesions noted. - lesion, rash and open wounds Color: pink Turgor: turgor normal Implants: None, Comments: Attention to Anesthesia: patient with PONV. No BP or blood draws in pt's Left arm . LABS & DATA REVIEWED/ORDERED Lab Results Component Value Date WBC 6.60 07/05/2015 HB 13.9 07/05/2015 HCT 41.0 07/05/2015 PLT 177 07/05/2015 MCV 87.2 07/05/2015 RDW 41.4 07/05/2015 Lab Results Component Value Date NA 139 03/14/2005 K 3.7 03/14/2005 CL 107 03/14/2005 BICARB 27 03/14/2005 BUN 11 03/14/2005 CR 1.2 03/14/2005 GLU 108 03/14/2005 CA 8.6 03/14/2005 Lab Results Component Value Date ABO O 03/11/2005 RH NEG 03/11/2005 No results found for: [id number] EKG: Personally reviewed. Sinus Rhythm HR:68 RR:882 MEDICAL DECISION MAKIN ACC/AHA Perioperative Cardiac Risk Stratification (assumes non-emergent, non-cardiac p rocedure) Are active cardiac conditions present? No Calculate the combined surgical and patient-specific risk: using the Winston perioperative ca ia risk calculator, the risk of major adverse cardiac event (MACE) is: less than 1%. No further risk stratification for coronary disease is indicated. ASSESSMENT and RECOMMENDATIONS: Surgical/anesthesia risk assessment: Judi Dennis is a 69 y.o. female with diagnosis of SYNOVITIS, LIKELY PVNS RIGHT KNEE, scheduled for ARTHROSCOPY, DEBRIDEMENT SYNO VITIS RIGHT KNEE ANTERIOR; POSTERIOR SYNOVECTOMY RIGHT KNEE; EXPLORATION POPLITEAL VESSELS A ND TIBIAL NERVE on 07/06/2015. According to ACC/AHA guidelines, the patient does not meet c krista for additional testing. Medication management recommendations: The patient was advised to continue all usual med ications except as noted in Patient Instructions (After Visit Summary given to pt) Pre-procedure antibiotic recommendation: Cefazolin 2 gm IV (no PCN allergy; no hx MRSA) Hyperlipidemia--well controlled on Atorvastatin. GERD--stable well managed with Omeprazole and diet; continue including morning day of medeiros rgery. Anxiety--well controlled with medication. The patient is stable / optimized for surgery. Additional testing/optimization is not nee ded. Thank you for the opportunity to contribute to this patient's care. DACIA Salcedo [facility] PREOPER[facility]IVE [facility]ICINE CLINIC AT [facility] 4TH FLOOR DAY STAY [address] [facility] [address] I spent time counseling the pt regarding perioperative risk (cardiac/bleeding/ DVT/ respir atory failure/ infection, etc) and methods to mitigate risk. I advised the patient regardin g NPO requirements, hydration before surgery, showering, general body hygiene. All pre-proc edure instructions given to the patient (after-visit summary). All of patient's questions w ere addressed. The patient verbalized understanding of the instructions given. documented in this en counter Plan of Treatment + + +--------+ + + | Name | Type | Priori | Associated Diagnoses | Order Schedule | | | | ty | | | + + +--------+ + + | COMMUNICATION TO [facility] | Procedures | Routin | Preop examination | Ordered: 07/05/2015 | | LAB DRAW | | e | | | + + +--------+ + + documented as of this encounter Procedures + +--------+ + + + | Procedure Name | Priori | Date/Time | Associated Diagnosis | Comments | | | ty | | | | + +--------+ + + + | 12 LEAD ECG | Routin | 07/05/2015 | Preop examination | Results for this | | | e | 2:04 PM | | procedure are in the | | | | PDT | | results section. | + +--------+ + + + | CBC (HEMOGRAM) ONLY | Routin | 07/05/2015 | Preop examination | Results for this | | | e | 2:00 PM | | procedure are in the | | | | PDT | | results section. | + +--------+ + + + | CONFIRMATORY ABO/RH | Routin | 07/05/2015 | Preop examination | Results for this | | | e | 2:00 PM | | procedure are in the | | | | PDT | | results section. | + +--------+ + + + | BASIC METABOLIC SET | Routin | 07/05/2015 | Preop examination | Results for this | | (NA, K, CL, TCO2, | e | 2:00 PM | | procedure are in the | | BUN, CR, GLU, CA) | | PDT | | results section. | + +--------+ + + + | CBC ONLY | Routin | 07/05/2015 | Preop examination | Results for this | | | e | 2:00 PM | | procedure are in the | | | | PDT | | results section. | + +--------+ + + + | ANTIBODY SCREEN | Routin | 07/05/2015 | Preop examination | Results for this | | | e | 2:00 PM | | procedure are in the | | | | PDT | | results section. | + +--------+ + + + | TYPE AND SCREEN | Routin | 07/05/2015 | Preop examination | Results for this | | | e | 2:00 PM | | procedure are in the | | | | PDT | | results section. | + +--------+ + + + | ABO & RH TYPE | Routin | 07/05/2015 | Preop examination | Results for this | | | e | 2:00 PM | | procedure are in the | | | | PDT | | results section. | + +--------+ + + + | HEMOGLOBIN A1C, | Routin | 07/05/2015 | Preop examination | Results for this | | BLOOD | e | 2:00 PM | | procedure are in the | | | | PDT | | results section. | + +--------+ + + + | IA COLLECTION VENOUS | Routin | 07/05/2015 | Preop examination | | | BLOOD,VENIPUNCTURE | e | 1:59 PM | | | | | | PDT | | | + +--------+ + + + documented in this encounter Results 12 LEAD ECG (07/05/2015 2:04 PM PDT) + + + + + + | Component | Value | Ref Range | Performed | Pathologist | | | | | At | Signature | + + + + + + | VENTRICULAR | 68 | bpm | [facility] | | | RATE | | | OF | | | | | | CARDIOLOGY | | + + + + + + | ATRIAL RATE | 68 | bpm | [facility] | | | | | | OF | | | | | | CARDIOLOGY | | + + + + + + | P-R | 136 | ms | [facility] | | | INTERVAL | | | OF | | | | | | CARDIOLOGY | | + + + + + + | P AXIS | 47 | deg | [facility] | | | | | | OF | | | | | | CARDIOLOGY | | + + + + + + | QRS | 102 | ms | [facility] | | | DURATION | | | OF | | | | | | CARDIOLOGY | | + + + + + + | QT | 412 | ms | [facility] | | | | | | OF | | | | | | CARDIOLOGY | | + + + + + + | ZEKE-URSULA | 439 | ms | [facility] | | | | | | OF | | | | | | CARDIOLOGY | | + + + + + + | R AXIS | -47 | deg | [facility] | | | | | | OF | | | | | | CARDIOLOGY | | + + + + + + | T AXIS | 54 | deg | [facility] | | | | | | OF | | | | | | CARDIOLOGY | | + + + + + + | ECG | SINUS RHYTHMBORDERLINE | | [facility] | | | IMPRESSION | LEFT AXIS DEVIATION- | | OF | | | | OTHERWISE NORMAL ECG | | CARDIOLOGY | | | | -Electronically signed | | | | | | by: JULIET BLANCO | | | | | | 07-06-2015 22:14:20 | | | | + + + + + + + + | Specimen | + + | | + + + + + | Narrative | Performed At | + + + | | | + + + + + + + + | Performing | Address | City/State/Zipcode | Phone Number | | Organization | | | | + + + + + | [facility] | [address] | [place], [place] | | | CARDIOLOGY | [address] | [address] | | + + + + + CONFIRMATORY ABO/RH (07/05/2015 2:00 PM PDT) + + + + + + | Component | Value | Ref Range | Performed | Pathologist | | | | | At | Signature | + + + + + + | ABO Group | O | | [facility] | | | | | | LABORATORY | | | | | | SERVICES, | | | | | | TRANSFUSION | | | | | | MEDICINE | | + + + + + + | Rh Type | Negative | | [facility] | | | | | | LABORATORY | | | | | | SERVICES, | | | | | | TRANSFUSION | | | | | | MEDICINE | | + + + + + + + + | Specimen | + + | Blood - Blood | + + + + + + + | Performing | Address | City/State/Zipcode | Phone Number | | Organization | | | | + + + + + | [facility] | [address] | [place] [address] | | | SERVICES, | [address] | | | | TRANSFUSION MEDICINE | | | | + + + + + CBC (HEMOGRAM) ONLY (07/05/2015 2:00 PM PDT) + +-------+ + + + | Component | Value | Ref Range | Performed | Pathologist | | | | | At | Signature | + +-------+ + + + | WHITE CELL | 6.60 | 4.40 - 11.00 | [facility] | | | COUNT | | K/cu mm | LABORATORY | | | | | | SERVICES, | | | | | | CORE | | + +-------+ + + + | RED CELL | 4.70 | 4.00 - 5.20 | [facility] | | | COUNT | | M/cu mm | LABORATORY | | | | | | SERVICES, | | | | | | CORE | | + +-------+ + + + | HEMOGLOBIN | 13.9 | 12.0 - 16.0 | [facility] | | | | | g/dL | LABORATORY | | | | | | SERVICES, | | | | | | CORE | | + +-------+ + + + | HEMATOCRIT | 41.0 | 36.0 - 46.0 % | [facility] | | | | | | LABORATORY | | | | | | SERVICES, | | | | | | CORE | | + +-------+ + + + | MCV | 87.2 | 80.0 - 96.0 fL | [facility] | | | | | | LABORATORY | | | | | | SERVICES, | | | | | | CORE | | + +-------+ + + + | MCHC | 33.9 | 33.0 - 35.5 | [facility] | | | | | g/dL | LABORATORY | | | | | | SERVICES, | | | | | | CORE | | + +-------+ + + + | RDW SD | 41.4 | 35.1 - 46.3 fL | [facility] | | | | | | LABORATORY | | | | | | SERVICES, | | | | | | CORE | | + +-------+ + + + | PLATELET | 177 | 150 - 400 K/cu | [facility] | | | COUNT | | mm | LABORATORY | | | | | | SERVICES, | | | | | | CORE | | + +-------+ + + + | MPV | 10.6 | 9.7 - 12.3 fL | [facility] | | | | | | LABORATORY | | | | | | SERVICES, | | | | | | CORE | | + +-------+ + + + | NRBC% | 0.0 | 0.0 - 0.3 % | [facility] | | | | | | LABORATORY | | | | | | SERVICES, | | | | | | CORE | | + +-------+ + + + | NRBC# | 0.00 | 0.00 - 0.02 | [facility] | | | | | K/cu mm | LABORATORY | | | | | | SERVICES, | | | | | | CORE | | + +-------+ + + + + + | Specimen | + + | Blood - Blood | | (substance) | + + + + + + + | Performing | Address | City/State/Zipcode | Phone Number | | Organization | | | | + + + + + | [facility] | [address] | [place] [address] | | | SERVICES, CORE | [address] | | | + + + + + ANTIBODY SCREEN (07/05/2015 2:00 PM PDT) + + + + + + | Component | Value | Ref Range | Performed | Pathologist | | | | | At | Signature | + + + + + + | Antibody | Negative | | [facility] | | | Screen | | | LABORATORY | | | | | | SERVICES, | | | | | | TRANSFUSION | | | | | | MEDICINE | | + + + + + + + + | Specimen | + + | Blood - Blood | + + + + + + + | Performing | Address | City/State/Zipcode | Phone Number | | Organization | | | | + + + + + | [facility] | [address] | [place] [address] | | | SERVICES, | [address] | | | | TRANSFUSION MEDICINE | | | | + + + + + ABO & RH TYPE (07/05/2015 2:00 PM PDT) + + + + + + | Component | Value | Ref Range | Performed | Pathologist | | | | | At | Signature | + + + + + + | ABO Group | O | | [facility] | | | | | | LABORATORY | | | | | | SERVICES, | | | | | | TRANSFUSION | | | | | | MEDICINE | | + + + + + + | Rh Type | Negative | | [facility] | | | | | | LABORATORY | | | | | | SERVICES, | | | | | | TRANSFUSION | | | | | | MEDICINE | | + + + + + + + + | Specimen | + + | Blood - Blood | + + + + + + + | Performing | Address | City/State/Zipcode | Phone Number | | Organization | | | | + + + + + | [facility] | [address] | [place] [address] | | | SERVICES, | [address] | | | | TRANSFUSION MEDICINE | | | | + + + + + HEMOGLOBIN A1C, BLOOD (07/05/2015 2:00 PM PDT) + + + + + + | Component | Value | Ref Range | Performed | Pathologist | | | | | At | Signature | + + + + + + | HEMOGLOBIN | 5.9 (H)Comment: Hbg A1c | <5.7 % | [facility] | | | A1C | Interpretive | | LABORATORY | | | | Information: | | SERVICES, | | | | <5.7% - Normal | | SPECIAL IMM | | | | 5.7-6.4% - Consistent | | + COAG | | | | with pre-diabetes | | | | | | >6.4% - Consistent with | | | | | | diabetes | | | | + + + + + + + + | Specimen | + + | Blood - Blood | | (substance) | + + + + + + + | Performing | Address | City/State/Zipcode | Phone Number | | Organization | | | | + + + + + | [facility] | [address] | [place] [address] | | | SERVICES, SPECIAL | [address] | | | | IMM + COAG | | | | + + + + + BASIC METABOLIC SET (NA, K, CL, TCO2, BUN, CR, GLU, CA) (07/05/2015 2:00 PM PDT) + +---------+ + + + | Component | Value | Ref Range | Performed | Pathologist | | | | | At | Signature | + +---------+ + + + | GLUCOSE, | 82 | 60 - 99 mg/dL | [facility] | | | PLASMA | | | LABORATORY | | | (LAB) | | | SERVICES, | | | | | | CORE | | + +---------+ + + + | BUN, PLASMA | 14 | 6 - 20 mg/dL | [facility] | | | (LAB) | | | LABORATORY | | | | | | SERVICES, | | | | | | CORE | | + +---------+ + + + | CREATININE | 0.70 | 0.60 - 1.10 | [facility] | | | PLASMA | | mg/dL | LABORATORY | | | (LAB) | | | SERVICES, | | | | | | CORE | | + +---------+ + + + | EGFR | >60 | >60 mL/min | [facility] | | | - | | | LABORATORY | | | MARSHALL[facility] | | | SERVICES, | | | | | | CORE | | + +---------+ + + + | EGFR NON | >60 | >60 mL/min | [facility] | | | -YENNY | | | LABORATORY | | | RICAN | | | SERVICES, | | | | | | CORE | | + +---------+ + + + | SODIUM, | 137 | 136 - 145 | [facility] | | | PLASMA | | mmol/L | LABORATORY | | | (LAB) | | | SERVICES, | | | | | | CORE | | + +---------+ + + + | POTASSIUM, | 3.9 | 3.4 - 5.0 | [facility] | | | PLASMA | | mmol/L | LABORATORY | | | (LAB) | | | SERVICES, | | | | | | CORE | | + +---------+ + + + | CHLORIDE, | 110 (H) | 97 - 108 mmol/L | [facility] | | | PLASMA | | | LABORATORY | | | (LAB) | | | SERVICES, | | | | | | CORE | | + +---------+ + + + | TOTAL CO2, | 21 | 21 - 32 mmol/L | [facility] | | | PLASMA | | | LABORATORY | | | (LAB) | | | SERVICES, | | | | | | CORE | | + +---------+ + + + | CALCIUM, | 9.3 | 8.6 - 10.2 | [facility] | | | PLASMA | | mg/dL | LABORATORY | | | (LAB) | | | SERVICES, | | | | | | CORE | | + +---------+ + + + | ANION GAP | 6 | mmol/L | [facility] | | | | | | LABORATORY | | | | | | SERVICES, | | | | | | CORE | | + +---------+ + + + | POTASSIUM | No Hemo | | [facility] | | | CMNT | | | LABORATORY | | | | | | SERVICES, | | | | | | CORE | | + +---------+ + + + + + | Specimen | + + | Blood - Blood | | (substance) | + + + + + | Narrative | Performed At | + + + | GFR is estimated using the MDRD equation recommended by the | [facility] | | National Kidney Disease Education Program. Estimated GFR | LABORATORY | | Interpretive Information: <60 mL/min/1.73 sq m | [facility] | | Chronic Kidney Disease <15 mL/min/1.73 sq m | | | Kidney Failure Estimated GFR greater that 60 mL/min/1.73 sq m is of | | | limited clinical value. The MDRD equation is not valid in the | | | following situations: - Patients under 18 years of age - Severe | | | malnutrition or obesity - Vegetarian diet - Rapidly changing kidney | | | function | | + + + + + + + + | Performing | Address | City/State/Zipcode | Phone Number | | Organization | | | | + + + + + | [facility] | [address] | [place] [address] | | | [facility] | [address] | | | + + + + + documented in this encounter Visit Diagnoses + + | Diagnosis | + + | Preop examination - Primary Preoperative examination, unspecified | + + documented in this encounter
--- OUTSIDE RECORDS SUMMARY | ~2019-08-30 | XMS | Encounter Summary ---
Demographics + + + | Address | [address] | | | [place] [address] | + + + | Home Phone | | + + + | Preferred Language | Unknown | + + + | Marital Status | | + + + | Jainism Affiliation | 1041 | + + + | Race | Unknown | + + + | Ethnic Group | Unknown | + + + Author + + + | Author | [facility] | | | and Sameerana | + + + | Organization | [facility] | | | and Sameerana [...] [place], [place] | | | | | [address] | | + + + + + | Bayron Dennis | ECON | [address] | | | | | [place], [place] | | | | | [address] | | + + + + + Care Team Providers + +------+ + | Care Support Analyst Name | Role | Phone | + +------+ + | Prasanth Perry MD | PCP | | + +------+ + Encounter Details +--------+ + + + + | Date | Type | Department | Care Team | Description | +--------+ + + + + | 05/23/ | Orders Only | [facility] | Zachary Cuenca, | | | 2014 | | [address] | DPM [address] | | | | | [address] | [address] [place], | | | | | [place], [place] | [place] [address] | | | | | [address] | [phone] | | | | | [phone] | | | +--------+ + + + [...] on file | | + + + documented as of this encounter Plan of Treatment Not on filedocumented as of this encounter Procedures + +--------+ + + + | Procedure Name | Priori | Date/Time | Associated Diagnosis | Comments | | | ty | | | | + +--------+ + + + | XR CALCANEUS RIGHT 2 | Routin | 05/23/2014 | | Results for this | | + VW | e | 2:10 PM | | procedure are in the | | | | PDT | | results section. | + +--------+ + + + documented in this encounter Results XR Calcaneus Right 2 + Vw (05/23/2014 2:10 PM PDT) + + | Specimen | + + | | + + + + + | Impressions | Performed At | + + + | No acute findings or gross abnormalities Normal foot radiographs | | | | | + + + + + + | Narrative | Performed At | + + + | Radiographic exam: Three weightbearing views of the right foot from | | | a Female patient, 68 years of age were reviewed Findings: Joint | | | spaces are well maintained. Cortices appear intact. Bony structure and | | | alignment of the foot is within normal limits. There are no | | | osteoblastic or osteolytic lesions noted. Bone and soft tissue | | | densities are within normal limits for patients age. | | + + + + + | Procedure Note | + + | Farhat, Reddy Conversion - 10/23/2018 12:48 PM PDT Radiographic exam: Three weightbearing | | views of the right foot from Alfredo patient, 68 years of age were reviewed Findings: | | Joint spaces are well maintained. Cortices appear intact. Bony structure and alignment | | of the foot is within normal limits. There are no osteoblastic or osteolytic lesions | | noted. Bone and soft tissue densities are within normal limits for patients age. | | IMPRESSION: No acute findings or gross abnormalitiesNormal foot radiographs | | | |No acute findings or gross abnormalities | |Normal foot radiographs | | | | | + + documented in this encounter Visit Diagnoses Not on filedocumented in this encounter"
--- OUTSIDE RECORDS SUMMARY | ~2019-08-30 | XMS | Encounter Summary ---
Demographics + + + | Address | [address] | | | [place] [address] | + + + | Home Phone | | + + + | Preferred Language | Unknown | + + + | Marital Status | | + + + | Adventism Affiliation | CHR | + + + | Race | White | + + + | Ethnic Group | Not or | + + + Author + + + | Author | [facility] | + + + | Organization | [facility] | + + + | Address | Unknown | + + + | Phone | Unavailable | + + + Support + + + + + | Name | Relationship | Address | Phone | + + + + + | Taye Dennis | ECON | [address] | | | | | [place] | | | | | [address] | | + + + + + Care Team Providers + +------+ + | Care Research Recruiter Name | Role | Phone | + +------+ + | Miriam Treadwlel | PCP | | + +------+ + Reason for Visit Consultation (Routine) +--------+--------+ + + + + | Status | Reason | Specialty | Diagnoses / | Referred By | Referred To | | | | | Procedures | Contact | Contact | +--------+--------+ + + + + | Closed | | Orthopedics | Diagnoses | Tra, | Romaine | | | | | | Jarod Napoles, | MD Suman | | | | | 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 | [address] | | | | | lar PVNS, | [facility] | [address] | | | | | benign | & Fractur | [place], [place] | | | | | neoplasm of | [address] | [address] | | | | | connective | [address] | Phone: | | | | | and other | [place], | [phone] | | | | | soft tissue | [place] [address] | Fax: | | | | | of right | Phone: | [phone] | | | | | lower limb, | [phone] | | | | | | including | Fax: | | | | | | hip | [phone] | | +--------+--------+ + + + + Encounter Details +--------+---------+ + + + | Date | Type | Department | Care Team | Description | +--------+---------+ + + + | 12/03/ | Office | Orthopaedics at | Suman Gavin, | PVNS (pigmented | | 2016 | Visit | [facility] [address] | MD [address] | villonodular | | | | [address] | [place], [place] | synovitis) (Primary | | | | Mailcode: [id number] | [id number] | Dx) | | | | [facility] | [phone] | | | | | [place], [place] | | | | | | [address] | | | | | | [phone] | | | +--------+---------+ + + + Social History + +-------+ [...] + + + | Blood Pressure | 127/78 | 12/04/2015 2:11 PM | | | | | PDT | | + + + + + | Pulse | 71 | 12/04/2015 2:11 PM | | | | | PDT | | + + + + + | Temperature | - | - | | + + + + + | Respiratory Rate | - | - | | + + + + + | Oxygen Saturation | - | - | | + + + + + | Inhaled Oxygen | - | - | | | Concentration | | | | + + + + + | Weight | 66.7 kg (147 lb) | 12/04/2015 2:11 PM | | | | | PDT | | + + + + + | Height | 161.3 cm (5' 3.5") | 12/04/2015 2:11 PM | | | | | PDT | | + + + + + | Body Mass Index | 25.63 | 12/04/2015 2:11 PM | | | | | PDT | | + + + + + documented in this encounter Progress Notes Suman Gavin MD - 12/05/2015 10:23 AM PDTDx: 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 F here for f/u. paresthesias in peroneal nerve distribution improving. Takin g gabapentin intermittently. Gabapentin helping with peroneal nerve paresthesias. Ambulatin g without assistive device. No fevers. No new masses. PE: Ht 1.613 m (5' 3.5"), Wt 66.679 kg (147 lb), BP 127/78, Pulse 71, BMI 25.63 kg/(m^2). Incisions all well healed No effusion Stable v/v/a/p stress Normal gait 5-/5 Q strength 5/5 TA/EHL/GS With sens dorsal and plantar foot ROM 0-120 Imaging: Reviewed by myself. MRI outside 11/2015: With residual disease in posterior lateral aspect of the knee, posterio r to tibia. No other areas with clear residual disease. Disease about 1 cm x 1 cm x 1 cm. A/P: s/p excision PVNS R knee. Appears to have some residual disease in posterior lateral aspect of joint, currently asymptomatic -Would continue to observe at this time. -Risks outweigh benefits for going after the residual disease. I suspect this residual dise ase has also grown since the posterior synovectomy. -If she develops increasing pain, she should come back and see us. Otherwise she can return on an as-needed basis. 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
--- OUTSIDE RECORDS SUMMARY | ~2019-08-30 | XMS | Encounter Summary ---
Demographics + + + | Address | [address] | | | [place] [address] | + + + | Home Phone | | + + + | Preferred Language | Unknown | + + + | Marital Status | | + + + | Spiritism Affiliation | 1041 | + + + | Race | Unknown | + + + | Ethnic Group | Unknown | + + + Author + + + | Author | [facility] | | | and Sameerana | + + + | Organization | [facility] | | | and Sameerana | [...] [place], [place] | | | | | [address] | | + + + + + | Bayron Dennis | ECON | [address] | | | | | [place], [place] | | | | | [address] | | + + + + + Care Team Providers + +------+ + | Care Sulky Driver Name | Role | Phone | + +------+ + | Prasanth Perry MD | PCP | | + +------+ + Encounter Details +--------+ + + + + | Date | Type | Department | Care Team | Description | +--------+ + + + + | 11/15/ | Orders Only | [facility] | Zachary Cuenca, | | | 2014 | | [address] | DPM [address] | | | | | [address] | [address] [place], | | | | | [place], [place] | [place] [address] | | | | | [address] | [phone] | | | | | [phone] | | | +--------+ + + + [...] + +--------+ + + + | XR FOOT RIGHT 3 + VW | Routin | 11/15/2014 | | Results for this | | | e | 11:30 AM | | procedure are in the | | | | PDT | | results section. | + +--------+ + + + documented in this encounter Results XR Foot Right 3 + Vw (11/15/2014 11:30 AM PDT) + + | Specimen | + + | | + + + + + | Impressions | Performed At | + + + | Stress reactive changes are appreciable of the lesser metatarsals, | | | fifth toe deformity as noted above, otherwise unremarkable foot | | | radiographs Electronically signed by Zachary Cuenca DPM on | | | 11/15/2014 4:15 PM No change from XR FOOT RIGHT with report | | | dated 05/11/2014 8:37 AM. | | + + + + + + | Narrative | Performed At | + + + | Radiographic exam: Three weightbearing views of the right foot from | | | a Female patient, 69 years of age were reviewed Findings: Joint | | | spaces are well maintained. Cortices appear intact. There is mild | | | thickening of the shafts of the third and fourth metatarsals likely | | | secondary to stress reactive changes. 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 Bone and soft tissue densities are within normal limits for | | | patients age. | | + + + + + | Procedure Note | + + | Farhat, Rad Conversion - 10/23/2018 12:48 PM PDT Radiographic exam: Three weightbearing | | views of the right foot from Alfredo patient, 69 years of age were reviewed Findings: | | Joint spaces are well maintained. Cortices appear intact. There is mild thickening of | | the shafts of the third and fourth metatarsals likely secondary to stress reactive | | changes. 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 Bone and soft tissue densities are within normal limits for | | patients age. IMPRESSION: Stress reactive changes are appreciable of the lesser | | metatarsals, fifth toe deformity as noted above, otherwise unremarkable foot radiographs | | No change from XR | | FOOT RIGHT with report dated 05/11/2014 8:37 AM. | | | | | |No change from XR FOOT RIGHT with report dated 05/11/2014 8:37 AM. | | | + + documented in this encounter Visit Diagnoses Not on filedocumented in this encounter"
--- OUTSIDE RECORDS SUMMARY | ~2019-08-30 | XMS | Encounter Summary ---
Demographics + + + | Address | [address] | | | [place] [address] | + + + | Home Phone | | + + + | Preferred Language | Unknown | + + + | Marital Status | | + + + | Jewish Affiliation | 1041 | + + + | Race | Unknown | + + + | Ethnic Group | Unknown | + + + Author + + + | Author | [facility] | | | and Sameerana | + + + | Organization | [facility] | | | and Sameerana [...] [place], [place] | | | | | [address] | | + + + + + | Bayron Dennis | ECON | [address] | | | | | [place], [place] | | | | | [address] | | + + + + + Care Team Providers + +------+ + | Care Boom Pump Operator Name | Role | Phone | + +------+ + | Prasanth Perry MD | PCP | | + +------+ + Encounter Details +--------+ + + + + | Date | Type | Department | Care Team | Description | +--------+ + + + + | 12/21/ | Imaging | [facility] | Provider, | | | 2019 | Exam | [facility] | MD [address] | | | | | IMAGING [address] | | | | | [address] | [place] [address] | | | | | [place] [address] | | | | | | [phone] | | | +--------+ + + + [...] + +--------+ + + + | XR KNEE LEFT 3 VW | Routin | 05/13/2017 | | Results for this | | | e | 12:00 AM | | procedure are in the | | | | PDT | | results section. | + +--------+ + + + documented in this encounter Results XR Knee Left 3 Vw (05/13/2017 12:00 AM PDT) + + | Specimen | + + | | + + + + + | Narrative | Performed At | + + + | External films for comparison only | [facility] | | | | | No results will be in the chart. | | + + + + +---------+ + + | Performing | Address | City/State/Zipcode | Phone Number | | Organization | | | | + +---------+ + + | [facility] | | | | + +---------+ + + documented in this encounter Visit Diagnoses Not on filedocumented in this encounter"
--- OUTSIDE RECORDS SUMMARY | ~2019-08-30 | XMS | Encounter Summary ---
Demographics + + + | Address | [address] | | | [place] [address] | + + + | Home Phone | | + + + | Preferred Language | Unknown | + + + | Marital Status | | + + + | Oriental Orthodox Affiliation | 1041 | + + + | Race | Unknown | + + + | Ethnic Group | Unknown | + + + Author + + + | Author | [facility] | | | and Sameerana | + + + | Organization | [facility] | | | and Sameerana [...] [place], [place] | | | | | [address] | | + + + + + | Bayron Dennis | ECON | [address] | | | | | [place], [place] | | | | | [address] | | + + + + + Care Team Providers + +------+ + | Care Plant Protection Superintendent Name | Role | Phone | + +------+ + | Prasanth Perry MD | PCP | | + +------+ + Encounter Details +--------+ + + + + | Date | Type | Department | Care Team | Description | +--------+ + + + + | 04/28/ | Orders Only | [facility] | Zachary Cuenca, | | | 2014 | | [address] | DPM [address] | | | | | [address] | [address] [place], | | | | | [place], [place] | [place] [address] | | | | | [address] | [phone] | | | | | [phone] | | | +--------+ + + + [...] +--------+ + + + | XR FOOT LEFT 3 + VW | Routin | 04/28/2014 | | Results for this | | | e | 9:43 AM | | procedure are in the | | | | PST | | results section. | + +--------+ + + + documented in this encounter Results XR Foot Left 3 + Vw (04/28/2014 9:43 AM PST) + + | Specimen | + + | | + + + + + | Impressions | Performed At | + + + | Small plantar heel spur, otherwise normal foot radiographs | | | | | + + + + + + | Narrative | Performed At | + + + | Radiographic exam: Three weightbearing views of the left foot from a | | | Female patient, 68 years of age were reviewed Findings: Joint | | | spaces are well maintained. Cortices appear intact. Bony structure and | | | alignment of the foot is within normal limits. There are no | | | osteoblastic or osteolytic lesions noted. There is a small plantar | | | calcaneal enthesophyte. The tibial sesamoid is bipartite. There is | | | adductovarus rotation of the fifth digit with synostosis of the distal | | | and middle phalanx. Bone and soft tissue densities are within normal | | | limits for patients age. | | + + + + + | Procedure Note | + + | Farhat, Rad Conversion - 10/23/2018 12:48 PM PDT Radiographic exam: Three weightbearing | | views of the left foot from Alfredo patient, 68 years of age were reviewed Findings: | | Joint spaces are well maintained. Cortices appear intact. Bony structure and alignment | | of the foot is within normal limits. There are no osteoblastic or osteolytic lesions | | noted. There is a small plantar calcaneal enthesophyte. The tibial sesamoid is | | bipartite. There is adductovarus rotation of the fifth digit with synostosis of the | | distal and middle phalanx. Bone and soft tissue densities are within normal limits for | | patients age. IMPRESSION: Small plantar heel spur, otherwise normal foot radiographs | | | | | + + documented in this encounter Visit Diagnoses Not on filedocumented in this encounter"
--- OUTSIDE RECORDS SUMMARY | ~2019-08-30 | XMS | Encounter Summary ---
Demographics + + + | Address | [address] | | | [place] [address] | + + + | Home Phone | | + + + | Preferred Language | Unknown | + + + | Marital Status | | + + + | Anabaptist Affiliation | 1041 | + + + | Race | Unknown | + + + | Ethnic Group | Unknown | + + + Author + + + | Author | [facility] | | | and Sameerana | + + + | Organization | [facility] | | | and Sameerana | + + + | Address | Unknown | + + + | Phone | Unavailable | + + + Support + + + + + | Name | Relationship | Address | Phone | + + + + + | Bossman Renee | ECON | [address] | | | | | [place], [place] | | | | | [address] | | + + + + + | Bayron Dennis | ECON | [address] | | | | | [place], [place] | | | | | [address] | | + + + + + Care Team Providers + +------+ + | Care Stone Rougher Name | Role | Phone | + +------+ + PCP | Unavailable | + +------+ + Encounter Details +--------+ + + + + | Date | Type | Department | Care Team | Description | +--------+ + + + + | 11/12/ | Abstract | [facility] | DATA [facility]IGRATION [facility]ANCY | | | 2011 | | Conversion Location | SR | | | | | [address] | | | | | | [place], [place] | | | | | | [address] | | | | | | [phone] | | | +--------+ + + + [...] + + + | Blood Pressure | 122/78 | 08/22/2011 12:00 AM | | | | | PDT | | + + + + + | Pulse | - | - | | + [...] + + + + | Weight | 68.2 kg (150 lb 6.4 | 08/22/2011 12:00 AM | | | | oz) | PDT | | + + + + + | Height | 161.3 cm (5' 3.5") | 05/14/2011 12:00 AM | | | | | PDT | | + + + + + | Body Mass Index | 26.43 | 05/14/2011 12:00 AM | | | | | PDT | | + + + + + documented in this encounter Plan of Treatment Not on filedocumented as of this encounter Visit Diagnoses Not on filedocumented in this encounter
--- OUTSIDE RECORDS SUMMARY | ~2019-08-30 | XMS | Encounter Summary ---
Demographics + + + | Address | [address] | | | [place] [address] | + + + | Home Phone | | + + + | Preferred Language | Unknown | + + + | Marital Status | | + + + | Buddhist Affiliation | CHR | + + + | Race | White | + + + | Ethnic Group | Not or | + + + Author + + + | Author | [facility] | + + + | Organization | [facility] | + + + | Address | Unknown | + + + | Phone | Unavailable | + + + Support + + + + + | Name | Relationship | Address | Phone | + + + + + | Taye Dennis | ECON | [address] | | | | | [place] | | | | | [address] | | + + + + + Care Team Providers + +------+ + | Care Group Therapy Counselor Name | Role | Phone | + +------+ + | Miriam Treadwell | PCP | | + +------+ + Reason for Referral PROC - Inpatient Surgery (Routine) +--------+--------+ + + + + | Status | Reason | Specialty | Diagnoses / | Referred By | Referred To | | | | | Procedures | Contact | Contact | +--------+--------+ + + + + | Closed | | Orthopedics | Diagnoses | Romaine, | Romaine, | | | | | | Suman, | MD Suman | | | | | Zack | [address] | | | | | synovitis | [address] | Ave | | | | | (pigmented), | [place] | | | | | right knee | [address] | [address] | | | | | Procedures | Phone: | Phone: | | | | | REQUEST TO | [phone] | [phone] | | | | | SURGERY | Fax: | Fax: | | | | | TELE MARKETING EXECUTIVE | | | | | | | NC RMV KNEE | | | | | | | SYNOVIUM,ANT | | | | | | | /POST NC | | | | | | | KNEE | | | | | | | SCOPE,SHAVE | | | | | | | ARTICULAR | | | | | | | CART NC | | | | | | | REVISE/REPAI | | | | | | | R ARM/LEG | | | | | | | NERVE | | | +--------+--------+ + + + + Reason for Visit Consultation (Routine) +--------+--------+ + + + + | Status | Reason | Specialty | Diagnoses / | Referred By | Referred To | | | | | Procedures | Contact | Contact | +--------+--------+ + + + + | Closed | | Orthopedics | Diagnoses | Tra, | Rmoaine, | | | | | | Jarod Napoles, | MD Suman | | | | | extra-articu | MD Eastern | [address] | | | | | lar PVNS, | [facility] | Ave | | | | | benign | & Fractur | [place], [place] | | | | | neoplasm of | [address] | [address] | | | | | connective | [address] | Phone: | | | | | and other | [place], | [phone] | | | | | soft tissue | [place] [address] | Fax: | | | | | of right | Phone: | [phone] | | | | | lower limb, | [phone] | | | | | | including | Fax: | | | | | | hip | [phone] | | +--------+--------+ + + + + Encounter Details +--------+---------+ + + + | Date | Type | Department | Care Team | Description | +--------+---------+ + + + | 05/21/ | Office | Orthopaedics at | Suman Gavin, | Right knee pain, | | 2015 | Visit | [facility] [address] | MD [address] | unspecified | | | | [address] | [place], [place] | chronicity (Primary | | | | Mailcode: [id number] | [phone] | Dx) | | | | Physician's Rafy | [phone] | | | | | [place], [place] | | | | | | [address] | | | | | | [phone] | | | +--------+---------+ + + + [...] + + + | Blood Pressure | 140/77 | 05/22/2015 10:46 AM | | | | | PDT | | + + + + + | Pulse | 81 | 05/22/2015 10:46 AM | | | | | PDT [...] + + + + | Weight | 68 kg (150 lb) | 05/22/2015 10:46 AM | | | | | PDT | | + + + + + | Height | 161.3 cm (5' 3.5") | 05/22/2015 10:46 AM | | | | | PDT | | + + + + + | Body Mass Index | 26.15 | 05/22/2015 10:46 AM | | | | | PDT | | + + + + + documented in this encounter Progress Notes Suman Gavin MD - 05/22/2015 11:13 AM PDTFormatting of this note might be different fr om the original. 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 Previous medical records we re reviewed and details are summarized below. 69 y.o. F is here for R knee pain. Pain for a few years. Pain worst with bending. Diffic ulty bending and squatting. Had PT. Tried NSAIDs and got sick after getting NSAIDs. Got M RI for further evaluation after PT and NSAIDs failed. Has some clicking symptoms. Ambulat ing without assistive device. Pain mostly inside and back of knee. No surgery of knee. No trauma. No injections. Also with some low back pain with radiating symptoms down LLE. Worst with sitting. Back a nd radiating symptoms not as bad as knee currently. Also w L knee pain but much more mild t oneal R knee. Remote h/o renal cell ca and breast ca. Lives in [place]. Comes in today w son. The patient denies constitutional symptoms, including weight loss, night sweats, and fatigu e. Past Medical History Diagnosis Date Renal cell carcinoma (HCC) 03/20/2005 Laparoscopic partial nephrectomy performed 03/12/05 Past Surgical History Procedure Laterality Date Hysterectomy Jaw surgery implant Kidney surgery Carpal tunnel surgery Allergies: Allergies Allergen Reactions Ciprofloxacin Unknown Metronidazole Unknown Medications: Current outpatient prescriptions: atorvastatin 20 mg oral tablet, , Disp: , Rfl: busPIRone 5 mg oral tablet, , Disp: , Rfl: omeprazole 40 mg oral capsule,delayed release(DR/EC), Take by mouth., Disp: , Rfl: zolpidem 5 mg oral tablet, , Disp: , Rfl: History Social History Marital Status: Spouse Name: N/A Number of Children: N/A Years of Education: N/A Social History Main Topics Smoking status: Never Smoker Smokeless tobacco: Never Used Alcohol Use: No Drug Use: Not on file Sexual Activity: Not on file Other Topics Concern None Social History Narrative Family history: Family History Problem Relation Cancer Father Cancer Mother Review of systems: A complete review of systems was performed, including the following: Constitutional Eyes Ears, nose mouth, throat Cardiovascular Respiratory Gastrointestinal Genitourinary Musculoskeletal Skin Neurologic General Health Hematologic or Lymphatic Allergic or immunologic For pertinent positives and negatives please refer to the patient's intake form which was r eviewed and signed by me. Physical exam: BP 140/77 | Pulse 81 | Ht 1.613 m (5' 3.5") | Wt 68.04 kg (150 lb) | BMI 26.15 kg/(m^2) Today s vital signs are noted as recorded by the Engraver Machine. General: Alert, awake, and oriented x3. No acute distress. Head, eyes, ears, nose, throat: Normocephalic, atraumatic. Extra-ocular muscles intact. No jugular venous distension. Chest: Symmetrical, normal inspiratory effort Back: No step-offs, no tenderness to palpation Abdomen: Soft, non-tender, non-distended. No palpable masses. No guarding, no rebound. Neuro psych: normal gait, coordination. First few steps are antalgic. Appropriate mood an d affect. RLE: R knee ROM 0-135, equal to other side. +jt line ttp medial. No ttp lateral. Stable v/v/a/p stress. Neg javier. Slight ttp sup pole patella. +grind. No effusion. 5/5 IP/ Q/TA/EHL/GS. SILT SP/DP/T. Palp DP pulse. No inguinal lymphadenopathy. With fullness post eriorly. When patient squats, difference in flexion about 10-15 deg. Imaging: Xrays from 05/22/2015 were interpreted by me, and show mild arthritic changes medial compar tment. Moderate changes at patellofem jt. No soft tissue calcifications. MRI from 04/10/2015 was interpreted by me, and shows soft tissue masses posteromedial and str aight posterior. Also with some mass anterior to meniscus. Findings are c/w PVNS. Most of mass is posteromedial. 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 Could be reactive synovitis Plan: All clinical and imaging data were reviewed with the patient today. -at her age, options include TKA vs synovectomy, posteriorly. Difficult to get direct post erior tissue as it is adjacent to vessels. Remainder of tissue easier to reach. Not sure ho w much of this tissue we should be chasing, as the more we eda, the higher the risk of com plications. -based on XR, she is not a good candidate for TKA. She does not have enough radiographic e vidence of osteoarthritis to warrant TKA and I suspect the upside will be low. -may need to do a scope in the front to get the disease that is at anterior horn. -would like to discuss w dr. Chacon before booking and will have schedulers call her w plan cristina case. Addendum: -discussed w dr. Chacon. Plan for scope the front to get that area in front of lateral men iscus, followed by posterior synovectomy and removal of everything in the back.Electronicall y signed by Suman Gavin MD at 06/03/2015 1:38 PM PDTdocumented in this encounter Plan of Treatment Not on filedocumented as of this encounter Results X-RAY KNEE 4 VIEWS RIGHT (05/22/2015 11:57 AM PDT) + + + + + + | Component | Value | Ref Range | Performed | Pathologist | | | | | At | Signature | + + + + + + | KNEE 4 | STUDY: KNEE 4 VIEWS | | | | | VIEWS RIGHT | RIGHT 05/22/15 11:57:00 | | | | | | HISTORY: Pain. | | | | | | COMPARISON: MRI 04/10/15. | | | | | | FINDINGS: On the right | | | | | | the bones are intact | | | | | | without fracture focal | | | | | | destruction.Moderately | | | | | | severe patellofemoral | | | | | | and mild medial | | | | | | compartment joint | | | | | | spacenarrowing and | | | | | | minimal tricompartmental | | | | | | spurring are observed. | | | | | | There is no | | | | | | jointeffusion. A complex | | | | | | Simon's cyst is not | | | | | | well outlined | | | | | | radiographically. | | | | | | Thereis no discernible | | | | | | soft tissue abnormality. | | | | | | Two views of the left | | | | | | knee show moderately | | | | | | severe patellofemoral | | | | | | and mildmedial | | | | | | compartment joint space | | | | | | narrowing and trace | | | | | | spurring without | | | | | | additionalabnormality. | | | | | | IMPRESSION: Moderately | | | | | | severe bilateral | | | | | | patellofemoral and mild | | | | | | medial | | | | | | compartmentdegenerative | | | | | | joint disease. No acute | | | | | | osseous abnormality. The | | | | | | complex Simon's cyst of | | | | | | the right knee seen on | | | | | | the outside MRI is not | | | | | | welloutlined | | | | | | radiographically. | | | | | | Attending Radiologists: | | | | | | WILL NICOLAS, | | | | | | MDAuthor: WILL | | | | | | MD Martina NICOLAS personally | | | | | | reviewed the images | | | | | | and, if necessary, | | | | | | edited the report. I | | | | | | agreewith the report as | | | | | | now presented. | | | | | | Final/Electronically | | | | | | signed / WILL | | | | | | MARIA ISABEL 05/22/2015 12:10 | | | | | | PM | | | | + + + + + + + + | Specimen | + + | | + + + +---------+ + + | Performing | Address | City/State/Zipcode | Phone Number | | Organization | | | | + +---------+ + + | [place] [facility] | | | | [facility] | | | | + +---------+ + + documented in this encounter Visit Diagnoses + + | Diagnosis | + + | Right knee pain, unspecified chronicity - Primary | + + documented in this encounter
--- OUTSIDE RECORDS SUMMARY | ~2019-08-30 | XMS | Encounter Summary ---
Demographics + + + | Address | [address] | | | [place] [address] | + + + | Home Phone | | + + + | Preferred Language | Unknown | + + + | Marital Status | | + + + | Zoroastrianism Affiliation | 1041 | + + + | Race | Unknown | + + + | Ethnic Group | Unknown | + + + Author + + + | Author | [facility] | | | and Sameerana | + + + | Organization | [facility] | | | and Sameerana | [...] [place], [place] | | | | | [address] | | + + + + + | Bayron Dennis | ECON | [address] | | | | | [place], [place] | | | | | [address] | | + + + + + Care Team Providers + +------+ + | Care Bulk Delivery Driver Name | Role | Phone | + +------+ + | Prasanth Perry MD | PCP | | + +------+ + Encounter Details +--------+ + + + + | Date | Type | Department | Care Team | Description | +--------+ + + + + | 04/28/ | Orders Only | [facility] | Zachary Cuenca, | | | 2014 | | AND ANKLE XRAY [address] | DPM [address] | | | | | [address] | [address] [place], | | | | | [place], [place] | [place] [address] | | | | | [address] | [phone] | | | | | [phone] | | | +--------+ + + + [...] RIGHT 3 + VW | Routin | 04/28/2014 | | Results for this | | | e | 9:43 AM | | procedure are in the | | | | PST | | results section. | + +--------+ + + + documented in this encounter Results XR Foot Right 3 + Vw (04/28/2014 9:43 AM PST) [...] Zachary Cuenca DPM on | | | 05/11/2014 8:37 AM | | + + + + + + | Narrative | Performed At | + + + | Radiographic exam: Three weightbearing views of the foot from | | | a Female [...] Three weightbearing | | views of the foot from Alfredo patient, 68 years of [...] above, otherwise unremarkable foot radiographs | | | | | + + documented in this encounter Visit Diagnoses Not on filedocumented in this encounter"
--- OUTSIDE RECORDS SUMMARY | ~2019-08-30 | XMS | Encounter Summary ---
Demographics + + + | Address | [address] | | | [place] [address] | + + + | Home Phone | | + + + | Preferred Language | Unknown | + + + | Marital Status | | + + + | Congregation Affiliation | CHR | + + + [...] | Taye Dennis | ECON | [address] | | | | | [place] | | | | | [address] | | + + + + + Care Team Providers + +------+ + | Care Pilot Plant Operator Name | Role | Phone | + +------+ + | Miriam Treadwell | PCP | | + +------+ + Encounter Details +--------+ + + + + | Date | Type | Department | Care Team | Description | +--------+ + + + + | 07/25/ | Telephone | Orthopaedics at | Suman Gavin, | | | 2015 | | [address] | MD [address] | | | | | [address] | [place], [place] | | | | | Mailcode: [id number] | [address] | | | | | [facility] | [phone] | | | | | [place], [place] | | | | | | [address] | | | | | | [phone] | | | +--------+ + + + [...]
--- OUTSIDE RECORDS SUMMARY | ~2019-08-30 | XMS | Encounter Summary ---
Demographics + + + | Address | [address] | | | [place] [address] | + + + | Home Phone | | + + + | Preferred Language | Unknown | + + + | Marital Status | | + + + | Tenriism Affiliation | CHR | + + + | Race | White | + + + | Ethnic Group | Not or | + + + Author + + + | Author | [facility] | + + + | Organization | [facility] | + + + | Address | Unknown | + + + | Phone | Unavailable | + + + Support + + + + + | Name | Relationship | Address | Phone | + + + + + | Taye Dennis | ECON | [address] | | | | | [place] | | | | | [address] | | + + + + + Care Team Providers + +------+ + | Care Head Packager Name | Role | Phone | + +------+ + PCP | Unavailable | + +------+ + Encounter Details +--------+ + + + + | Date | Type | Department | Care Team | Description | +--------+ + + + + | 01/30/ | Results | [facility] | Dallas Lloyd, | | | 2004 | Only | [address] | [address] | | | | | Loop Mailcode: [id number] | [place], [place] | | | | | Physician's | [address] | | | | | [id number] | [phone] | | | | | [facility] [place] | | | | | | [address] | | | | | | [phone] | | | +--------+ + + + [...] as of this encounter Plan of Treatment + +---------+--------+ + + | Name | Type | Priori | Associated Diagnoses | Date/Time | | | | ty | | | + +---------+--------+ + + | CT OUTSIDE FILMS | Imaging | Routin | | 01/30/2005 12:00 AM | | | | e | | PST | + +---------+--------+ + + | CT OUTSIDE FILMS | Imaging | Routin | | 01/30/2005 12:00 AM | | | | e | | PST | + +---------+--------+ + + documented as of this encounter Visit Diagnoses Not on filedocumented in this encounter"
--- OUTSIDE RECORDS SUMMARY | ~2019-08-30 | XMS | Encounter Summary ---
Demographics + + + | Address | [address] | | | [place] [address] | + + + | Home Phone | | + + + | Preferred Language | Unknown | + + + | Marital Status | | + + + | Sabianism Affiliation | 1041 | + + + | Race | Unknown | + + + | Ethnic Group | Unknown | + + + Author + + + | Author | [facility] | | | and Sameerana | + + + | Organization | [facility] | | | and Sameerana [...] [place], [place] | | | | | [address] | | + + + + + | Bayron Dennis | ECON | [address] | | | | | [place], [place] | | | | | [address] | | + + + + + Care Team Providers + +------+ + | Care Drying Unit Felting Machine Operator Name | Role | Phone | + +------+ + | Prasanth Perry MD | PCP | | + +------+ + Reason for Visit + +--------+ + | Reason | Onset | Comments | | | Date | | + +--------+ + | Abdominal Pain | 03/28/ | | | | 2012 | | + +--------+ + Encounter Details +--------+ + + + + | Date | Type | Department | Care Team | Description | +--------+ + + + + | 05/28/ | Telephone | [facility] | [facility], | Abdominal Pain | | 2012 | | GASTROENTEROLOGY | [facility] [address] | | | | | [address] | [address] | | | | | [address] [place], [place] | [place] | | | | | [address] | [address] | | | | | [phone] | | | +--------+ + + + [...] + + documented as of this encounter Miscellaneous Notes Telephone Encounter - Raven David RN - 05/29/2012 9:23 AM PDTPatient instructed. She agrees to call if pain does not subside after Cipro and Flagyl. She will also take a probiotic. Had numerous questions about the Lucia study for which she is scheduled. These were answered. e lephone Encounter - Anne-Marie Dupree ARNP - 05/28/2012 12:07 PM PDTPlease advise patient that white blood cell count is normal. ESR, which is one of her inflammatory markers is al so normal. However, her CRP which is another inflammatory marker is elevated. This in comb ination with her left lower quadrant pain will eat is to treat her for diverticulitis. Anti biotics to be sent her pharmacy. Please insert patient to take entire dosage of antibiotics . Do not stop taking antibiotics the pain goes away. The pain did not go away following an tibiotic usage please contact our office. Thank you documented in this encounter Plan of Treatment Not on filedocumented as of this encounter Visit Diagnoses Not on filedocumented in this encounter"
--- OUTSIDE RECORDS SUMMARY | ~2019-08-30 | XMS | Encounter Summary ---
Demographics + + + | Address | [address] | | | [place] [address] | + + + | Home Phone | | + + + | Preferred Language | Unknown | + + + | Marital Status | | + + + | Confucianist Affiliation | CHR | + + + [...] | Taye Dennis | ECON | [address] | | | | | [place] | | | | | [address] | | + + + + + Care Team Providers + +------+ + | Care Spin Tank Tender Name | Role | Phone | + +------+ + | Miriam Treadwell | PCP | | + +------+ + Encounter Details +--------+ + + + + | Date | Type | Department | Care Team | Description | +--------+ + + + + | 07/11/ | Telephone | Orthopaedics | Suman Gavin, | | | 2020 | | [facility] at [facility] | [address] | | | | | for Health and | [place], [place] | | | | | Healing [address] | [address] | | | | | [address] Mailcode: | [phone] | | | | | [facility] | | | | | | Health and Healing, | | | | | | [facility] | | | | | | [place], [place] | | | | | | [address] | | | | | | [phone] | | | +--------+ + + + [...]
--- OUTSIDE RECORDS SUMMARY | ~2019-08-30 | XMS | Encounter Summary ---
Demographics + + + | Address | [address] | | | [place] [address] | + + + | Home Phone | | + + + | Preferred Language | Unknown | + + + | Marital Status | | + + + | Mandaeism Affiliation | CHR | + + + | Race | White | + + + | Ethnic Group | Not or | + + + Author + + + | Author | [facility] | + + + | Organization | [facility] | + + + | Address | Unknown | + + + | Phone | Unavailable | + + + Support + + + + + | Name | Relationship | Address | Phone | + + + + + | Taye Dennis | ECON | [address] | | | | | [place] | | | | | [address] | | + + + + + Care Team Providers + +------+ + | Care Community Health Advocate Name | Role | Phone | + +------+ + | Miriam Treadwell | PCP | | + +------+ + Encounter Details +--------+---------+ + + + | Date | Type | Department | Care Team | Description | +--------+---------+ + + + | 07/04/ | Office | Orthopaedics at | Suman Gavin, | Right knee pain, | | 2016 | Visit | [facility] [address] | MD [address] | unspecified | | | | [address] | [place], [place] | chronicity (Primary | | | | Mailcode: [id number] | [id number] | Dx) | | | | Physician's Rafy | [phone] | | | | | [place], [place] | | | | | | [address] | | | | | | [phone] | | | +--------+---------+ + + + [...] + + + | Blood Pressure | 153/88 | 07/05/2015 11:18 AM | | | | | PDT | | + + + + + | Pulse | 74 | 07/05/2015 11:18 AM | | | | | PDT [...] Weight | 68 kg (150 lb) | 07/05/2015 11:18 AM | | | | | PDT | | + + + + + | Height | 161.3 cm (5' 3.5") | 07/05/2015 11:18 AM | | | | | PDT | | + + + + + | Body Mass Index | 26.15 | 07/05/2015 11:18 AM | | | | | PDT | | + + + + + documented in this encounter Progress Notes Suman Gavin MD - 07/05/2015 4:48 PM PDTDx: intraarticular diffuse soft tissue mass R knee c/w PVNS HPI: 69 y.o. F is here for preoperative evaluation. She continues to have pain in the right knee. She is now having increasing pain in the anterior aspect of her right knee. She has n oticed that her right thigh has gotten weaker over time. She does not think any of her shanon s have increased appreciably in size. PE: Ht 1.613 m (5' 3.5"), Wt 68.04 kg (150 lb), BP 153/88, Pulse 74, BMI 26.15 kg/(m^2). RLE: R knee ROM 0-135, equal to other side. +jt line ttp medial. No ttp lateral. Stable v/v/a/p stress. Neg javier. Slight ttp sup pole patella. +grind. No effusion. 5/5 IP/ Q/TA/EHL/GS. SILT SP/DP/T. Palp DP pulse. No inguinal lymphadenopathy. With fullness post eriorly. No new imaging A/P: Intra-articular soft tissue masses: Posterior medial, posterior lateral, in front of l ateral meniscus. -For arthroscopy tomorrow to debride lesion in front of lateral meniscus as well as take a look anteriorly. Also will do posterior synovectomy to remove both masses posterior medial a nd posterior lateral. -All the risks and benefits of the procedure were explained and all questions were answered to the patient's satisfaction. -Consent signed today. -Patient will need a knee immobilizer for at least one week postoperative. She might have a drain postoperatively. She has mentioned to me that Dr. Jarod Dutta in [place] may be a ble to do her first postop check at 2 weeks. If this is the case, we will need to send patho logy results to Dr. Dutta. P M PDTdocumented in this encounter Plan of Treatment Not on filedocumented as of this encounter Visit Diagnoses + + | Diagnosis | + + | Right knee pain, unspecified chronicity - Primary | + + documented in this encounter
--- OUTSIDE RECORDS SUMMARY | ~2019-08-30 | XMS | Encounter Summary ---
Demographics + + + | Address | [address] | | | [place] [address] | + + + | Home Phone | | + + + | Preferred Language | Unknown | + + + | Marital Status | | + + + | Hoahaoism Affiliation | CHR | + + + | Race | White | + + + | Ethnic Group | Not or | + + + Author + + + | Author | [facility] | + + + | Organization | [facility] | + + + | Address | Unknown | + + + | Phone | Unavailable | + + + Support + + + + + | Name | Relationship | Address | Phone | + + + + + | Taye Dennis | ECON | [address] | | | | | [place] | | | | | [address] | | + + + + + Care Team Providers + +------+ + | Care Co Op Name | Role | Phone | + +------+ + PCP | Unavailable | + +------+ + Encounter Details +--------+ + + + + | Date | Type | Department | Care Team | Description | +--------+ + + + + | 03/11/ | Office | [facility] | Clinic, Urology | Progress Note | | 2006 | Visit-Trans | | | | | | cribed | | | | +--------+ + + [...] + + documented as of this encounter Progress Notes Interface, Patient Educator In - 03/13/2005 2:10 AM RUST [id number] [facility] Date: 03/11/2005 Clinic: Urology Reason for Consultation: Renal mass. History of Present Illness : Ms. Dennis is a 59-year-old female with a history of breast cancer treated with bilateral mastectomies, referred to the Urology Clinic for evaluation of an upper pole complex cystic right mass. The patient was originally evaluated approximately 8 months ago for ureteral colic. A CT scan performed at that time demonstrated resolution of previously demonstrated left hydronephrosis, however did demonstrate some punctate bilateral renal calculi. A cystic right renal mass along with possible liver nodules were seen. Follow-up CT scan in January 2005 of the chest and abdomen demonstrating an increase in size of the complex cystic mass from 14 x 7 mm to 19 x 26 mm. The liver lesion had resolved. In addition, the patient's left flank pain/renal colic has resolved. She does state she has lost 10 to 15 pounds unintentionally over the last several months that had been associated poor appetite but no night sweats. She has not had any gross hematuria. The patient was seen by Dr. Lizeth Garrison in [place] and is referred to [facility] Urology for possible laparoscopic partial nephrectomy. Her creatinine is 0.9. She does have a history of urinary tract infections, most recently with E. coli. She is currently not having dysuria but does state she has incomplete emptying. Past Medical History: 1. Tonsillectomy. 2. Total abdominal hysterectomy. 3. Broken jaw. 4. Rotator cuff surgery. 5. Breast cancer treated with bilateral mastectomies in July 2002. 6. Hypercholesterolemia. 7. Three urinary tract infections in the ensuing 3 years. 8. Hypoglycemia. Medications: 1. Lovastatin 40 mg p.o. daily. 2. Temazepam 30 mg p.o. nightly p.r.n. insomnia. 3. Flunisolide nasal solution 0.025% p.r.n. Allergies: No known drug allergies. Social History: The patient is and presents today with both her son and . 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 She smoked for 6 months when she was 16 years of age. She does not drink. She lives in [facility]. Family History: Her father had testicle cancer. Her mother was an alcoholic with liver disease and cancer. Her sister has Parkinson's disease along with manic depression/bipolar. Her grandmother was a diabetic. Physical Examination : General: The patient is afebrile with normal vitals. HEENT: She has no supraclavicular lymphadenopathy or carotid bruits. Lungs: Clear to auscultation. Heart: Regular rate and rhythm. Abdomen: Soft without any palpable masses. She has a Pfannenstiel scar which is well healed. Laboratory Data: Urinalysis: Negative for leukocyte esterase and nitrite. Imaging: CT scan reviewed demonstrated a complex upper pole cystic structure of the right kidney. Left kidney with simple cyst. Assessment: Complex upper pole renal mass. Plan: Given the complex nature of this mass, we will need surgical resection. The mass will likely be amenable to a laparoscopic partial nephrectomy. This procedure was discussed with the patient's family along with the risks. Risks of infection, bleeding, urine leak, stroke, myocardial infarction, and conversion to a possible open or total nephrectomy were discussed. All of the patient's and family's questions were answered. She will be seen in the [facility] today for preoperative labs and EKG. The patient does have a history of a broken jaw and was told to convey this to Anesthesia. The patient was seen and examined with Dr. Lloyd. He agrees with the above. Gopi You M.D. Dallas Lloyd M.D. CLAUDIO / GIULIA [id number] / [id number] / [id number] / [id number] Electronically signed by Dallas Lloyd 03-12-2005 04:02:21 PM documented i n this encounter Plan of Treatment Not on filedocumented as of this encounter Visit Diagnoses Not on filedocumented in this encounter"
--- OUTSIDE RECORDS SUMMARY | ~2019-08-30 | XMS | Encounter Summary ---
Demographics + + + | Address | [address] | | | [place] [address] | + + + | Home Phone | | + + + | Preferred Language | Unknown | + + + | Marital Status | | + + + | Hinduism Affiliation | CHR | + + + | Race | White | + + + | Ethnic Group | Not or | + + + Author + + + | Organization | Unknown | + + + | Address | Unknown | + + + | Phone | Unavailable | + + + Support + + + + + | Name | Relationship | Address | Phone | + + + + + | Taye Dennis | ECON | [address] | | | | | [place] | | | | | [address] | | + + + + + Care Team Providers + +------+ + | Care Commercial Banker Name | Role | Phone | + +------+ + PCP | Unavailable | + +------+ + Encounter Details +--------+ + + + + | Date | Type | Department | Care Team | Description | +--------+ + + + + | 03/15/ | Discharge | | Summary, Discharge | D/C Summary ODDS | | 2006 | Summary-Tra | | | | | | nscribed | | | | +--------+ + + [...] + + documented as of this encounter Discharge Summaries Interface, Livestock Yard Attendant In - 04/07/2005 2:07 AM PST [id number] B[facility] Admission Date: 03/12/2005 Discharge Date: 03/15/2005 Staff Physician: Dallas Lloyd M.D. Principal Final Diagnosis: Renal cell carcinoma, clear cell type. Principal Procedures: 1. Laparoscopic partial nephrectomy. 2. Laparoscopic liver biopsy. Reason for Admission and Hospital Course: Mrs. Dennis is a 59-year-old woman with a history of breast cancer who was found on followup CT to have a complex cyst in her kidney. She was, therefore, indicated for nephrectomy. After thoroughly evaluating her CT scans, we felt this could be accomplished laparoscopically with a partial nephrectomy. She was admitted and underwent an uncomplicated laparoscopic partial nephrectomy. Postoperatively, she was surveilled in the regular hagen where she had no complications. She was deemed stable for discharge when she was tolerating a regular diet. Her pain was controlled with oral medications and ambulating without difficulty. Condition on Discharge: Stable. Disposed to home. Discharge Medication(s): As follows: 1. Oxycodone 5 mg to 15 mg p.o. q.4 h. p.r.n. pain. 2. Colace 100 mg p.o. b.i.d. She is also advised to resume her usual medications. Discharge Instruction(s): Followup care will be with Dr. Dallas Lloyd in his clinic in 7 to 10 days. Ryan Conley M.D. Dallas Lloyd M.D. / GIULIA [id number] / [id number] / [id number] / E: 04/02/2005 cmw Electronically signed by Dallas Lloyd 04-06-2005 10:06:51 AM documented i n this encounter Plan of Treatment Not on filedocumented as of this encounter Visit Diagnoses Not on filedocumented in this encounter"
--- OUTSIDE RECORDS SUMMARY | ~2019-08-30 | XMS | Encounter Summary ---
Demographics + + + | Address | [address] | | | [place] [address] | + + + | Home Phone | | + + + | Preferred Language | Unknown | + + + | Marital Status | | + + + | Scientology Affiliation | [id number] | + + + | Race | Unknown | + + + | Ethnic Group | Unknown | + + + Author + + + | Author | [facility] | | | and Sameerana | + + + | Organization | [facility] | | | and Sameerana [...] [place], [place] | | | | | [address] | | + + + + + | Bayron Dennis | ECON | [address] | | | | | [place], [place] | | | | | [address] | | + + + + + Care Team Providers + +------+ + | Care Accounts Payable Accountant Name | Role | Phone | + +------+ + PCP | Unavailable | + +------+ + Encounter Details +--------+ + + + + | Date | Type | Department | Care Team | Description | +--------+ + + + + | 06/20/ | Hospital | [facility] | [place], | | | 2003 - | Encounter | [facility] | Raymundo Knox MD [address] | | | | | [place] [address] | [facility] | | | 09/28/ | | [place], [place] | [place] [address] | | | 2003 | | [address] | [phone] | | | | | [phone] | | | +--------+ + + + [...]
--- OUTSIDE RECORDS SUMMARY | ~2019-08-30 | XMS | Encounter Summary ---
Demographics + + + | Address | [address] | | | [place] [address] | + + + | Home Phone | | + + + | Preferred Language | Unknown | + + + | Marital Status | | + + + | Congregation Affiliation | CHR | + + + | Race | White | + + + | Ethnic Group | Not or | + + + Author + + + | Author | [facility] | + + + | Organization | [facility] | + + + | Address | Unknown | + + + | Phone | Unavailable | + + + Support + + + + + | Name | Relationship | Address | Phone | + + + + + | Taye Dennis | ECON | [address] | | | | | [place] | | | | | [address] | | + + + + + Care Team Providers + +------+ + | Care Laborer Heading Name | Role | Phone | + [...] | | | | [address] | [place], [place] | chronicity (Primary | | | | Mailcode: [id number] | [id number] | Dx) | | | | Physician's Rafy | [phone] | | | | | [place], [place] | | | | | | [address] | | | | | | [phone] | | | +--------+---------+ + + + [...] to me that Dr. Jarod Dutta in [place] may be a ble to do her [...]
--- OUTSIDE RECORDS SUMMARY | ~2019-08-30 | XMS | Encounter Summary ---
Demographics + + + | Address | [address] | | | [place] [address] | + + + | Home Phone | | + + + | Preferred Language | Unknown | + + + | Marital Status | | + + + | Mu-Ism Affiliation | CHR | + + + | Race | White | + + + | Ethnic Group | Not or | + + + Author + + + | Author | [facility] | + + + | Organization | [facility] | + + + | Address | Unknown | + + + | Phone | Unavailable | + + + Support + + + + + | Name | Relationship | Address | Phone | + + + + + | Taye Dennis | ECON | [address] | | | | | [place] | | | | | [address] | | + + + + + Care Team Providers + +------+ + | Care Women'S Garment Fitter Name | Role | Phone | + +------+ + | Miriam Treadwell | PCP | | + +------+ + Encounter Details +--------+---------+ + + + | Date | Type | Department | Care Team | Description | +--------+---------+ + + + | 07/04/ | Office | Preoperative | Adelaida Maxwell, | Preop examination | | 2016 | Visit | Medicine Clinic at | FIBRE COMPOSITE TECHNICIAN [address] | (Primary Dx) | | | | [facility] 4th Floor Day | [address] | | | | | Stay [address] | [place], [place] | | | | | [address] | [address] | | | | | Mailcode: [id number] | [phone] | | | | | Boris Hillman | | | | | | [address], [place] | | | | | | [address] | | | | | | [phone] | | | +--------+---------+ + + + [...] 0 | Quick Note | Umm Abdalla SEISMOLOGY TECHNICAL OFFICER | | | 7 | | | [...] or walk. Surgery check-in location: Admitting - [facility], ninth floor lobby Surgery Check in Time: [...] it is after office hours, call the [facility] horizontal drill operator at [phone] and ask them to page him or [...] Alert and appropriate; nl affect. alert Findings: Career Services Assistant nial nerves 2-12 intact, Motor 5/5 strength [...] RH NEG 03/11/2005 No results found for: [id number] EKG: Personally reviewed. Sinus Rhythm HR:68 RR:882 [...] contribute to this patient's care. DACIA Salcedo [facility] PREOPER[facility]IVE MEDICINE CL[facility] AT [facility] 4TH FLOOR DAY STAY [address] [address] I spent time counseling [...] + +--------+ + + | COMMUNICATION TO [facility] | Procedures | Routin | Preop [...] DEPT OF | [address] | [place], [place] | | | CARDIOLOGY | [address] | [address] | | + + + + + [...] [facility] | [address] | [place] [address] | | | SERVICES, | [address] [...] | + + + + + | [facility] | [address] | [place] [address] | | | SERVICES, CORE | [address] [...] [facility] | [address] | [place] [address] | | | SERVICES, | [address] [...] | + + + + + | [facility] | [address] | [place] [address] | | | SERVICES, | [address] [...] [facility] | [address] | [place] [address] | | | SERVICES, SPECIAL | [address] [...] | | | LABORATORY | | | CAMEROONIAN | | | SERVICES, | | | [...] the MDRD equation recommended by the | [facility] | | National Kidney Disease Education Program. [...] | + + + + + | [facility] | [address] | [place] [address] | | | CECILY WILD | [address] | | | + + + + + documented in this encounter Visit Diagnoses + + | Diagnosis | + + | Preop examination - Primary Preoperative examination, unspecified | + + documented in this encounter
--- OUTSIDE RECORDS SUMMARY | ~2019-08-30 | XMS | Encounter Summary ---
Demographics + + + | Address | [address] | | | [place] [address] | + + + | Home Phone | | + + + | Preferred Language | Unknown | + + + | Marital Status | | + + + | Mosque Affiliation | CHR | + + + | Race | White | + + + | Ethnic Group | Not or | + + + Author + + + | Author | [facility] | + + + | Organization | [facility] | + + + | Address | Unknown | + + + | Phone | Unavailable | + + + Support + + + + + | Name | Relationship | Address | Phone | + + + + + | Taye Dennis | ECON | [address] | | | | | [place] | | | | | [address] | | + + + + + Care Team Providers + +------+ + | Care Transfer Station Attendant Name | Role | Phone | + +------+ + | Miriam Treadwell | PCP | | + +------+ + Encounter Details +--------+ + + + + | Date | Type | Department | Care Team | Description | +--------+ + + + + | / | Hospital | Registration HOV | | | | 2016 | Encounter | [address] | | | | | | [place], | | | | | | [place] [address] | | | +--------+ + + + [...] + + documented as of this encounter Medications at Time of Discharge + + + +---------+ + + | Medication | Sig | Dispensed | Refills | Start | End Date | | | | | | Date | | + + + +---------+ + + | atorvastatin 20 mg | | | 0 | 03/10/19 | | | oral tablet | | | | 15 | | + + + +---------+ + + | busPIRone 5 mg | | | 0 | 04/22/19 | | | oral tablet | | | | 15 | | + + + +---------+ + + | omeprazole 40 mg | Take by mouth. | | 0 | 11/13/19 | | | oral capsule,delayed | | | | 12 | | | release(/NEIL) | | | | | | + + + +---------+ + + | zolpidem 5 mg oral | | | 0 | 02/03/20 | | | tablet | | | | 14 | | + + + +---------+ + + documented as of this encounter Plan of Treatment Not on filedocumented as of this encounter Visit Diagnoses Not on filedocumented in this encounter"
--- OUTSIDE RECORDS SUMMARY | ~2019-08-30 | XMS | Encounter Summary ---
Demographics + + + | Address | [address] | | | [place] [address] | + + + | Home Phone | | + + + | Preferred Language | Unknown | + + + | Marital Status | | + + + | Taoist Affiliation | CHR | + + + | Race | White | + + + | Ethnic Group | Not or | + + + Author + + + | Author | [facility] | + + + | Organization | [facility] | + + + | Address | Unknown | + + + | Phone | Unavailable | + + + Support + + + + + | Name | Relationship | Address | Phone | + + + + + | Taey Dennis | ECON | [address] | | | | | [place] | | | | | [address] | | + + + + + Care Team Providers + +------+ + | Care Construction Engineering Manager Name | Role | Phone | + +------+ + | Miriam Treadwell | PCP | | + +------+ + Reason for Visit AUTH/CERT +--------+--------+ + + + + | Status | Reason | Specialty | Diagnoses / | Referred By | Referred To | | | | | Procedures | Contact | Contact | +--------+--------+ + + + + | | | | | | | +--------+--------+ + + + + Encounter Details +--------+---------+ + + + | Date | Type | Department | Care Team | Description | +--------+---------+ + + + | 07/05/ | Surgery | [id number] | Eileen Gavin, | ARTHROSCOPYIC | | 2015 | | [address] | [address] | DEBRIDEMENT OF | | | | Rd [facility] | [place], [place] | SYNOVITIS RIGHT | | | | Hospital Admitting | [address] | ANTERIOR KNEE; OPEN | | | | Desk Located on the | [phone] | SYNOVECTOMY OF RIGHT | | | | 9th floor | | POSTERIOR KNEE AND | | | | [place], [place] | | | | | | [address] | | | +--------+---------+ + + + [...] + + + | Blood Pressure | 106/72 | 07/07/2015 8:06 AM | | | | | PDT | | + + + + + | Pulse | 70 | 07/07/2015 8:06 AM | | | | | PDT | | + + + + + | Temperature | 36.7 C (98.1 F) | 07/07/2015 8:06 AM | | | | | PDT | | + + + + + | Respiratory Rate | 16 | 07/07/2015 8:06 AM | | | | | PDT | | + + + + + | Oxygen Saturation | 96% | 07/07/2015 8:06 AM | | | | | PDT | | + + + + + | Inhaled Oxygen | - | - | | | Concentration | | | | + + + + + | Weight | 69.8 kg (153 lb 14.1 | 07/06/2015 6:00 AM | | | | oz) | PDT | | + + + + + | Height | 161.3 cm (5' 3.5") | 07/06/2015 6:00 AM | | | | | PDT | | + + + + + | Body Mass Index | 26.83 | 07/06/2015 6:00 AM | | | | | PDT | | + + + + + documented in this encounter Discharge Instructions Pauline Stewart RN - 07/06/2015General Discharge Instructions for Same-Day Pro cedure Patients: ? Remember that you are under the influence of medications. Do not stay alone. A responsible person should be with you. Do not drive, drink alcohol or make important personal or business decisions for 24 hour s. ? Resume normal activity and return to work when advised by your Doctor. Pain Management: Your last oral pain medication was given at: ? Please follow your Doctor s instructions on the medication bottle. ? Do not take pain medication on an empty stomach, as this may cause nausea and vomiting. ? Do not drive or drink alcohol while on narcotic pain medication. ? If you received a Peripheral Nerve Block, please take pain medication when numbing begins to wear off or when you go to bed. This will allow for pain coverage when your nerve block wears off during the night. ? If pain is not relieved or increases despite following these instructions, please call yo ur Doctor. Diet: ? If you do not experience nausea or vomiting resume your regular diet. Eat lightly and av oid large, high fat or highly spiced meals for 24-48 hours. ? Constipation can be a side effect of narcotic pain medication. Take stool softeners, inc rease dietary fiber and drink plenty of water to prevent this. Wound/Dressing/Drain Care: ? Call your Doctor if there is excessive bleeding, redness, swelling or drainage at the ope rative site. Urination: ? Please contact your Doctor or proceed to the nearest Emergency Room if you have not urina denisa/voided in 8 hours after discharge. IV Site Care Instructions: ? Monitor IV site for pain, redness, swelling and/or drainage. If present, call your Docto r immediately. ? Minor redness and/or tenderness may be treated with warm, moist compresses for 24-48 hour s. If the area is still red and/or tender after this, notify your Doctor. Call your Doctor if you experience: ? Persistent nausea or vomiting. ? Fever ?101F or chills. ? Increased or uncontrolled pain despite taking pain medications. Call 911 if you experience difficulty breathing or unusual shortness of breath. Additional Home Care Instructions: See AVS Follow-up Appointment: See AVS After arriving home you may receive a patient satisfaction survey from "[employer]". Adeel dixonld appreciate your feedback on the survey to help us provide excellent service to you and your family. documented in this encounter Medications at Time of Discharge + + + +---------+ + + | Medication | Sig | Dispensed | Refills | Start | End Date | | | | | | Date | | + + + +---------+ + + | acetaminophen 325 | Take 650 mg by mouth | | 0 | | | | mg oral tablet | every four hours as | | | | | | | needed. | | | | | + + [...] | | | 12 | | | release(DR/EC) | | | | | | + + + +---------+ + + | oxyCODONE, | Take 1 to 2 tablets | 80 | 0 | 07/06/19 | | | immediate release, 5 | by mouth every three | tablet | | 16 | | | mg oral tablet | hours as needed for | | | | | | | severe pain (for | | | | | | | pain.). | | | | | + + + +---------+ + + | zolpidem 5 mg oral | | | 0 | 02/03/20 | | | tablet | | | | 14 | | + + + +---------+ + + documented as of this encounter Progress Notes Eileen Gavin MD - 07/07/2015 7:47 AM PDTPt doing ok this morning. Got OOB. PE: Ht 1.613 m (5' 3.5"), Wt 69.8 kg (153 lb 14.1 oz), BP 129/65, Pulse 73, Temperature 37.2 C (99 F), RR 16, SpO2 100%, BMI 26.83 kg/(m^2). Drain minimal dsg c/d/i Intact df/pf foot sens intact dorsal plantar foot A/P: s/p excision PVNS posterior and knee scope -knee imm -leave drain in -dc today documented in this e ncounter Plan of Treatment Not on filedocumented as of this encounter Procedures + +--------+ + + + | Procedure Name | Priori | Date/Time | Associated Diagnosis | Comments | | | ty | | | | + +--------+ + + + | OPERATION RECORD | | 07/28/2015 | | Results for this | | | | 3:50 PM | | procedure are in the | | | | PDT | | results section. | + +--------+ + + + | LOWER EXTREMITY SOFT | Electi | 07/06/2015 | SYNOVITIS, LIKELY | | | TISSUE PROCEDURE | ve | 7:30 AM | PVNS RIGHT KNEE | | | | Surgic | PDT | | | | | al | | | | + +--------+ + + + | ARTHROSCOPIC KNEE | Electi | 07/06/2015 | SYNOVITIS, LIKELY | | | PROCEDURES | ve | 7:30 AM | PVNS RIGHT KNEE | | | | Surgic | PDT | | | | | al | | | | + +--------+ + + + | CARDIOLOGY | | 07/06/2015 | | Results for this | | | | 12:00 AM | | procedure are in the | | | | PDT | | results section. | + +--------+ + + + | SURGICAL PATHOLOGY | Routin | 07/06/2015 | | Results for this | | | e | | | procedure are in the | | | | | | results section. | + +--------+ + + + documented in this encounter Results OPERATION RECORD (07/28/2015 3:50 PM PDT) + + | Transcriptions | + + | Eileen Gavin MD - 07/06/2015 11:48 AM PDT Date of Service: 07/06/2015 | | Attending Surgeon: Eileen Gavin MD Long Wall Mining Machine Tender(s): Kwadwo Cunningham MD. | | Dmitriy Sauceda MD. 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 Posterior synovectomy, right knee, with | | removal of PVNS.2. Right knee arthroscopy, partial anterior synovectomy with removal of | | PVNS.3. Peroneal nerve neurolysis.Anesthesia: General.Estimated Blood Loss: 75 | | cc.Complications: None apparent.Findings: Anterior knee showed hemosiderin deposits | | consistent with PVNS, with 1 very small deposit in suprapatellar pouch, and a slightly | | larger deposit anterior to lateral meniscus. There also with synovitis throughout the | | knee, although this appeared more like reactive synovitis than PVNS. In the posterior | | aspect of the knee, there were 2 large pockets of PVNS, 1 medial and 1 lateral. There | | also was smaller pockets on the posterolateral aspect of the proximal tibia.Specimens: | | Posterior synovium, as well as pieces of the anterior synovium where there was suspicion | | for PVNS.Indications: This is a 69-year-old female, who has been having pain in the | | right knee. She had an MRI which showed findings consistent with PVNS. She had 2 large | | nodules on the posterior aspect of the knee. She also had a little bit in the front of | | the knee, and findings again, were consistent with diffuse PVNS. Her cartilage looked | | too good, however, and her activity level was too high for us to consider doing a knee | | replacement, despite her age at 69. We had a long discussion about it and decided to | | take out her both large nodules on the posterior aspect of the knee and do an | | arthroscopy to take the small areas of the anterior aspect out with the scope.Procedure | | In Detail: The patient was brought to the operating room, placed supine on the table, | | given general anesthesia. A lateral post was placed, and the right knee was prepped and | | draped in a standard sterile fashion for a knee scope. Preoperative antibiotics were | | given. Time-out was done. Lateral portal was 1st created just lateral to the patellar | | tendon. The scope was placed and then using a spinal needle, medial portal was then | | created, and a shaver was placed in there. We 1st did a diagnostic scope. We found a | | small area of hemosiderin deposit in the suprapatellar pouch. Medial gutter appeared | | clean. Lateral gutter appeared to have some synovitis. Medial meniscus and lateral | | meniscus did appear intact, however, there was a lot of synovitis anteriorly both | | medially and laterally. Shaver was used to remove a lot of the synovitis, so that we | | could see a little bit better. There was some bleeding, and then anterior to the | | lateral meniscus around the notch area, there clearly was hemosiderin deposit. A | | pituitary rongeur was used to remove some of this for specimen, and then it was shaved | | down aggressively, and then cautery was used to get some of the bleeders, as it did | | bleed a little bit more after we did the shaving. The lateral gutter had some more | | synovium that was shaved away, and the anterior aspect of the joint also had some of it | | shaved away. Attention was returned towards the suprapatellar pouch, whereupon we | | shaved again, more synovium in this area, and used a biter to remove the hemosiderin | | deposit in the suprapatellar pouch. These were all sent for permanent section. The | | knee was inspected 1 more time through the diagnostic arthroscopy, and we did not see | | any other evidence of hemosiderin deposits, and therefore, though that we had adequately | | debrided the anterior synovium of the knee. The scope portals were removed, the knee | | was drained, and the scope portals were closed with 3-0 Biosyn. The drapes were then | | removed and the patient was then placed prone onto another table over gel rolls. The | | right lower extremity was prepped and draped again in a standard sterile fashion. An a | | S-shaped incision was made on the posterior aspect of the knee starting laterally in the | | thigh, and medially in the leg. The subcutaneous tissue was divided. The fascia was | | then identified, and the fascia was then cut. Once we cut the fascia, the short | | saphenous vein was easily identified. We turned our attention at 1st medially, and went | | medial to the gastroc tendon, and immediately found a large pocket of PVNS. During | | this time period, we clearly breached joint, because fluid from the previous arthroscopy | | was expressed through the wound. This mass was then removed and taken out in pieces; 1 | | large piece was taken out 1st, and then rongeurs were used to remove the rest, and | | Metzenbaum scissors were used to remove the rest of the PVNS along the medial aspect of | | the femur and tibia. Once this was done, our attention was turned towards the | | posterolateral aspect of the joint. At this point, the peroneal nerve was directly into | | the area that we wanted to identify, and so the peroneal nerve was neurolysed to allow | | for further excursion so that it would not be tethered anywhere. We 1st looked medial | | to the peroneal nerve going in towards the notch, and moved the lateral gastroc over. | | Bleeders were Bovie cauterized on our way in, and again there was a large lump that was | | identified. We took this out as 1 large piece and we inspected further. We were | | clearly inside the joint, and we had to use pituitary rongeur and synovial rongeur to | | remove the rest of the tissue. There appeared to be some tracking down posterior to the | | tibia, and so 1 of the posterior ligaments was cut with Bovie cautery to get better | | exposure, and again the pituitary rongeur was used to remove all that tissue. This | | ligament was then repaired with 0 Vicryl. In looking at the MRI, there appeared to be 1 | | more spot along the lateral aspect of the tibia, and so the lateral gastrocnemius | | muscle was retracted medially, and the tissue was inspected further. Of note, the | | peroneal nerve was lateral to this exposure. We cut into the capsule again posteriorly | | at the level of the lateral tibial plateau, and there again, was a little bit of PVNS | | that was removed using pituitary rongeur. We inspected it further, and after we did | | this we inspected all the pockets that we did the synovectomy for, and there did not | | appear to be any residual PVNS. The wound was copiously irrigated with normal saline. | | A drain was placed into the deep tissues coming out proximally, and sewn in with a 2-0 | | nylon. The fascia was then closed with 0 Vicryl. The peroneal nerve and her vessels | | were left, and the tibial nerve were left to lay as they were. Once the fascia was | | closed, the subcutaneous tissue was closed with 2-0 Vicryl, skin closed with 0 V-Loc. | | Sterile dressing was applied. The patient was then placed supine, knee immobilizer | | placed, and the patient was extubated, and brought to the recovery room in stable | | condition.Postoperative Plan: The patient should have a knee immobilizer on for a week | | at all times, and her drain should stay in for a week as well. I will talk to the | | patient and her family to figure out whether she wants her 1 week follow up with us or | | with Dr. Dutta office. Dr. Dutta office has kindly agreed to take the drain out and do | | a wound check if necessary. Otherwise, she can follow up with us in 1 week for us to do | | the things. She should follow up with us at the very least 6 weeks and then 6 months | | for a repeat MRI. I suspect the PVNS will recur, it is just a question of at which | | point it will recur.SRIDHAR Gonsales/VAND: 07/06/2015 10:50:03DT: 07/06/2015 | | 11:48:28Job #: [id number] | + + SURGICAL PATHOLOGY (07/06/2015) + + + + + + | Component | Value | Ref Range | Performed | Pathologist | | | | | At | Signature | + + + + + + | SURGICAL | SOURCE OF SPECIMEN:A | | [facility] | | | PATHOLOGY | Anterior kneeSOURCE OF | | DEPARTMENT | | | | SPECIMEN:B Posterior | | OF | | | | knee Final | | PATHOLOGY | | | | Pathologic Diagnosis:A: | | | | | | Right anterior knee | | | | | | synovium, synovectomy: | | | | | | - 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 | | | | | | Case Seen By:Salty | | | | | | Rodrigez M.D./Surgical | | | | | | Pathology FellowEric A. | | | | | | Star | | | | | | M.D./Pathologist | | | | | | Clinical History:The | | | | | | patient is a 69-year-old | | | | | | female with right knee | | | | | | synovitis. Gross | | | | | | Description:Received are | | | | | | 2 specimens fresh in | | | | | | containers labeled with | | | | | | the patient | | | | | | name(initials RTA) and: | | | | | | A: Anterior | | | | | | knee: Received are | | | | | | multiple blackman-red | | | | | | fragments of soft | | | | | | tissuemeasuring 1.3 x 1 | | | | | | x 0.3 cm in aggregate. | | | | | | The entire specimen is | | | | | | filteredand submitted. | | | | | | B: Posterior | | | | | | knee: Received are | | | | | | multiple red-brown to | | | | | | yellow portions ofsoft | | | | | | tissue and adipose | | | | | | measuring 5 x 5 x 2.8 cm | | | | | | in | | | | | | aggregate.Rotating Field Assembler | | | | | | sections are submitted. | | | | | | Cassette Index:A: | | | | | | Anterior knee:A1B: | | | | | | Posterior | | | | | | knee:[id number]:tp My | | | | | | electronic signature | | | | | | indicates that I have | | | | | | personally reviewed | | | | | | alldiagnostic slides, | | | | | | the gross and/or | | | | | | microscopic portion of | | | | | | thisreport and | | | | | | formulated the final | | | | | | diagnosis. | | | | | | Rendering Diagnostician: | | | | | | Rome Graves | | | | | | ChandaPathologistRuyi | | | | | | olman Signed 07/10/2015 | | | | | | 4:09PM | | | | + + + [...] | + + + + + | [facility] | [address] | [place] [address] | | | PATHOLOGY | [address] | | | + + + + + CARDIOLOGY (07/06/2015 12:00 AM PDT) + + + | Narrative | Performed At | + + + | | | + + + documented in this encounter Visit Diagnoses Not on filedocumented in this encounter Administered Medications + +--------+ +-------+------+------+ | Medication Order | MAR | Action | Dose | Rate | Site | | | Action | Date | | | | + +--------+ +-------+------+------+ | atorvastatin (LIPITOR) tablet | Given | 07/06/19 | 20 mg | | | | 20 mg 20 mg, oral, DAILY, First | | 16 7:48 | | | | | dose on Fri07/06/15 at 1715, Until | | PM PDT | | | | | Discontinued | | | | | | + +--------+ +-------+------+------+ +---+---+ | | | +---+---+ + +-------+ +-------+---+--------+ | bupivacaine-EPINEPHrine | Given | 07/06/19 | 10 mL | | Right | | (MARCAINE-EPINEPHRINE) 0.25 | | 16 9:52 | | | Knee | | %-1:200,000 injection | | AM PDT | | | | | INTRAPROCEDURE PRN, Starting Binta | | | | | | | 07/06/15 at 0952, Until Binta 07/06/15 | | | | | | | at 1124 | | | | | | + +-------+ +-------+---+--------+ +---+---+ | | | +---+---+ + +-------+ +------+---+---+ | busPIRone (BUSPAR) tablet 5 mg | Given | 07/07/19 | 5 mg | | | | 5 mg, oral, TWICE DAILY, First | | 16 8:03 | | | | | dose on Binta 07/06/15 at 2100, Until | | AM PDT | | | | | Discontinued | | | | | | + +-------+ +------+---+---+ +---+---+ | | | +---+---+ + +---------+ +--------+---+---+ | fentaNYL citrate (PF) | New Bag | 07/06/19 | 50 mcg | | | | (SUBLIMAZE) injection 50 mcg 50 | | 16 1:38 | | | | | mcg, intravenous, POSTPROCEDURE | | PM PDT | | | | | PRN, 4 doses, Starting Binta 07/06/15 | | | | | | | at 1026, Until Binta 07/06/15 at | | | | | | | 1338, severe pain | | | | | | + +---------+ +--------+---+---+ +---------+ +--------+---+---+ | New Bag | 07/06/19 | 50 mcg | | | | | 16 12:06 | | | | | | PM PDT | | | | +---------+ +--------+---+---+ | New Bag | 07/06/19 | 25 mcg | | | | | 16 11:35 | | | | | | AM PDT | | | | +---------+ +--------+---+---+ + +---+ | | | + +---+ | fentaNYL citrate (PF) | | | (SUBLIMAZE) injection 1 dose, | | | Starting Binta 07/06/15 at 1124, | | | Until Binta /07/16 at 1133 | | + +---+ | | | + +---+ + +---------+ +--------+---+---+ | HYDROmorphone (DILAUDID) | New Bag | 07/06/19 | 0.2 mg | | | | injection 0.2-0.5 mg 0.2-0.5 mg, | | 16 11:52 | | | | | intravenous, POSTPROCEDURE PRN, | | AM PDT | | | | | Starting Binta 07/06/15 at 1026, | | | | | | | Until Binta 07/06/15 at 1701, | | | | | | | moderate pain | | | | | | + +---------+ +--------+---+---+ + +---+ | | | + +---+ | HYDROmorphone (DILAUDID) | | | injection 1 dose, Starting Binta | | | 07/06/15 at 1124, Until Binta 07/06/15 | | | at 1152 | | + +---+ | | | + +---+ + +-------+ + +---+--------+ | NaCl 0.9 % irrigation | Given | 07/06/19 | 1,000 mL | | Right | | INTRAPROCEDURE PRN, Starting Binta | | 16 9:02 | | | Knee | | 07/06/15 at 0902, Until Binta 07/06/15 | | AM PDT | | | | | at 1124 | | | | | | + +-------+ + +---+--------+ +---+---+ | | | +---+---+ + +-------+ +-------+---+---+ | omeprazole (PRILOSEC) capsule | Given | 07/07/19 | 40 mg | | | | 40 mg 40 mg, oral, BEFORE | | 16 6:34 | | | | | BREAKFAST, First dose on Fri | | AM PDT | | | | | 07/07/15 at 0630, Until | | | | | | | Discontinued | | | | | | + +-------+ +-------+---+---+ +---+---+ | | | +---+---+ + +-------+ +------+---+---+ | oxyCODONE (immediate release) | Given | 07/06/19 | 5 mg | | | | (ROXICODONE) tablet 5-10 mg 5-10 | | 16 4:29 | | | | | mg, oral, EVERY 4 HOURS | | PM PDT | | | | | NEEDED, Starting Binta 07/06/15 at | | | | | | | 1054, Until Binta 07/06/15 at 1757, | | | | | | | severe pain | | | | | | + +-------+ +------+---+---+ +-------+ +------+---+---+ | Given | 07/06/19 | 5 mg | | | | | 16 1:54 | | | | | | PM PDT | | | | +-------+ +------+---+---+ +---+---+ | | | +---+---+ + +-------+ +------+---+---+ | oxyCODONE (immediate release) | Given | 07/07/19 | 5 mg | | | | (ROXICODONE) tablet 5-15 mg 5-15 | | 16 11:20 | | | | | mg, oral, EVERY 3 HOURS | | AM PDT | | | | | NEEDED, Starting Binta 07/06/15 at | | | | | | | 1458, Until Fri07/07/15 at 1728, | | | | | | | moderate pain | | | | | | + +-------+ +------+---+---+ +-------+ +------+---+---+ | Given | 07/07/19 | 5 mg | | | | | 16 8:21 | | | | | | AM PDT | | | | +-------+ +------+---+---+ | Given | 07/07/19 | 5 mg | | | | | 16 6:34 | | | | | | AM PDT | | | | +-------+ +------+---+---+ + +---+ | | | + +---+ | oxyCODONE (immediate release) | | | (ROXICODONE) tablet 1 dose, | | | Starting Binta 07/06/15 at 1332, | | | Until Binta /07/16 at 1354 | | + +---+ | | | + +---+ + +---------+ +---------+---+---+ | promethazine (PHENERGAN) | New Bag | 07/06/19 | 6.25 mg | | | | injection 6.25-12.5 mg 6.25-12.5 | | 16 12:07 | | | | | mg, intravenous, POSTPROCEDURE | | PM PDT | | | | | PRN, 1 dose, Starting Binta 07/06/15 | | | | | | | at 1026, Until Binta 07/06/15 at | | | | | | | 1207, nausea/vomiting, 2nd line | | | | | | + +---------+ +---------+---+---+ + +---+ | | | + +---+ | promethazine (PHENERGAN) | | | injection 1 dose, Starting Binta | | | 07/06/15 at 1202, Until Binta 07/06/15 | | | at 1207 | | + +---+ | | | + +---+ + + + +---------+---+---+ | scopolamine (TRANSDERM-SCOPE) | Applied | // | 1 patch | | | | 1.5 mg (1 mg over 3 days) 1 patch | Patch | 16 7:25 | | | | | 1 patch, transdermal, ONCE, 1 | | AM PDT | | | | | dose, Binta 07/06/15 at 0800 | | | | | | + + + +---------+---+---+ + +---+ | | | + +---+ | scopolamine (TRANSDERM-SCOPE) | | | 1.5 mg (1 mg over 3 days) 1 | | | dose, Starting [facility] 07/06/15 at | | | 0715, Until Fri07/07/15 at 1728 | | + +---+ | | | + +---+ + +-------+ + +---+---+ | senna-docusate (SENOKOT S) | Given | 07/07/19 | 1 tablet | | | | 8.6-50 mg 1 tablet 1 tablet, | | 16 8:03 | | | | | oral, TWICE DAILY, First dose on | | AM PDT | | | | | [facility] 07/06/15 at 2100, Until | | | | | | | Discontinued | | | | | | + +-------+ + +---+---+ +-------+ + +---+---+ | Given | 07/06/19 | 1 tablet | | | | | 16 7:48 | | | | | | PM PDT | | | | +-------+ + +---+---+ +---+---+ | | | +---+---+ documented in this encounter
--- OUTSIDE RECORDS SUMMARY | ~2019-08-30 | XMS | Encounter Summary ---
Demographics + + + | Address | [address] | | | [place] [address] | + + + | Home Phone | | + + + | Preferred Language | Unknown | + + + | Marital Status | | + + + | Adventist Affiliation | CHR | + + + [...] | Taye Dennis | ECON | [address] | | | | | [place] | | | | | [address] | | + + + + + Care Team Providers + +------+ + | Care Tongue Binder Name | Role | Phone | + +------+ + PCP | Unavailable | + +------+ + Encounter Details +--------+ + + + + | Date | Type | Department | Care Team | Description | +--------+ + + + + | 03/20/ | [facility] | | Letter, Clinic | Letters | | 2006 | scribed | | | | +--------+ + + [...] as of this encounter Progress Notes Interface, Enrobing Machine Feeder In - 03/23/2005 2:07 AM PST [id number] 03/20/2005 [id number] BOYD Clemons [address] [place], [place] [id number] or March 20, 2005 Lizeth Garrison M.D. [address] [facility] [address] [place] [address] RE: JUDI DENNIS MR #: [id number] Dear Dr. Garrison: I spoke with Mrs. Dennis today and gave her pathology results. We performed laparoscopic partial nephrectomy on March 12, 2005, for the tumor in her right kidney. 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 Additionally, we did note a liver mass, which we biopsied as well which revealed only nodular hyperplasia, benign. Mrs. Dennis did quite well postoperatively. She would like to follow up with you if at all possible. Thank you for allowing me to assist you in the care of this patient, and please feel free to contact me should you have any questions or concerns. Sincerely, Dallas Lloyd M.D. SUJATHA / GIULIA [id number] / [id number] / [id number] / [id number] documented i n this encounter Plan of Treatment Not on filedocumented as of this encounter Visit Diagnoses Not on filedocumented in this encounter"
--- OUTSIDE RECORDS SUMMARY | ~2019-08-30 | XMS | Encounter Summary ---
Demographics + + + | Address | [address] | | | [place] [address] | + + + | Home Phone | | + + + | Preferred Language | Unknown | + + + | Marital Status | | + + + | Spiritism Affiliation | 1041 | + + + | Race | Unknown | + + + | Ethnic Group | Unknown | + + + Author + + + | Author | [facility] | | | and Sameerana | + + + | Organization | [facility] | | | and [...] [place], [place] | | | | | [address] | | + + + + + | Bayron Dennis | ECON | [address] | | | | | [place], [place] | | | | | [address] | | + + + + + Care Team Providers + +------+ + | Care Spice Cleaner Name | Role | Phone | + +------+ + | Prasanth Perry MD | PCP | | + +------+ + Encounter Details +--------+ + + + + | Date | Type | Department | Care Team | Description | +--------+ + + + + | 05/26/ | Abstract | [facility] | [facility], | | | 2012 | | GASTROENTEROLOGY | [address] | | | | | [address] | [address] | | | | | [address] [place], [place] | [place], [place] | | | | | [address] | [address] | | | | | [phone] | | | +--------+ + + + + Social History + +-------+ +--------+------+ | Tobacco Use | Types | Packs/Day | Years | Date | | | | | Used | | + +-------+ +--------+------+ | Never Assessed | | | | | + +-------+ +--------+------+ + + +---------+ + | Alcohol Use [...]
--- OUTSIDE RECORDS SUMMARY | ~2019-08-30 | XMS | Encounter Summary ---
Demographics + + + | Address | [address] | | | [place] [address] | + + + | Home Phone | | + + + | Preferred Language | Unknown | + + + | Marital Status | | + + + | Jehovah'S Witness Affiliation | CHR | + + + [...] Taye Dennis | ECON | [address] | | | | | [place] | | | | | [address] | | + + + + + Care Team Providers + +------+ + | Care Ict Sales Assistant Name | Role | Phone | + [...] as of this encounter Discharge Summaries Interface, Glazing Machine Operator In - 04/07/2005 2:07 AM PST [id number] BOYD Clemons Admission Date: 03/12/2005 Discharge Date: 03/15/2005 [...] Conley M.D. Dallas Lloyd M.D. / GIULIA [id number] / [id number] / [id number] / E: 04/02/2005 cmw Electronically signed by Dallas Lloyd 04-06-2005 10:06:51 AM documented i n this encounter Plan of Treatment Not on filedocumented as of this encounter Visit Diagnoses Not on filedocumented in this encounter"
--- OUTSIDE RECORDS SUMMARY | ~2019-08-30 | XMS | Encounter Summary ---
Demographics + + + | Address | [address] | | | [place] [address] | + + + | Home Phone | | + + + | Preferred Language | Unknown | + + + | Marital Status | | + + + | Sikhism Affiliation | 1041 | + + + | Race | Unknown | + + + | Ethnic Group | Unknown | + + + Author + + + | Author | [facility] | | | and Sameerana | + + + | Organization | [facility] | | | and Sameerana [...] [place], [place] | | | | | [address] | | + + + + + | Bayron Dennis | ECON | [address] | | | | | [place], [place] | | | | | [address] | | + + + + + Care Team Providers + +------+ + | Care Classification Inspector Name | Role | Phone | + +------+ + | Prasanth Perry MD | PCP | | + +------+ + Reason for Visit + +--------+ + | Reason | Onset | Comments | | | Date | | + +--------+ + | Abdominal Pain | 03/29/ | | | | 2012 | | + +--------+ + Encounter Details +--------+ + + + + | Date | Type | Department | Care Team | Description | +--------+ + + + + | 05/29/ | Telephone | [facility] | [facility], | Abdominal Pain | | 2012 | | GASTROENTEROLOGY | [address] | | | | | [address] [place] | [address] | | | | | [address] [place], [place] | [place] | | | | | [address] | [address] | | | | | [phone] | | | +--------+ + + + [...] Encounter - Raven David RN - 05/29/2012 9:20 AM PDTNotified patient th at [facility] sent order for Cipro and Flagyl for presumed diverticulitis. She will call if pain does not improve. She will also take a probiotic. elephone Encounter - Sandy Hayes - 05/29/2012 8:04 AM PDTPatient is calling because her abdominal pain is getting worse than yesterday, and she re ceived a call from her pharmacy alerting her of medication she didn't know was coming. Uche wood call patient at [phone] or cell at [phone]. documented in this encounter Plan of Treatment Not on filedocumented as of this encounter Visit Diagnoses Not on filedocumented in this encounter"
--- OUTSIDE RECORDS SUMMARY | ~2019-08-30 | XMS | Encounter Summary ---
Demographics + + + | Address | [address] | | | [place] [address] | + + + | Home Phone | | + + + | Preferred Language | Unknown | + + + | Marital Status | | + + + | Confucianism Affiliation | CHR | + + + | Race | White | + + + | Ethnic Group | Not or | + + + Author + + + | Author | [facility] | + + + | Organization | [facility] | + + + | Address | Unknown | + + + | Phone | Unavailable | + + + Support + + + + + | Name | Relationship | Address | Phone | + + + + + | Taye Dennis | ECON | [address] | | | | | [place] | | | | | [address] | | + + + + + Care Team Providers + +------+ + | Care Pool Player Name | Role | Phone | + +------+ + | Miriam Treadwell | PCP | | + +------+ + Reason for Visit +--------+ + | Reason | Comments | +--------+ + | Other | XR Review and Increased R Knee Pain | +--------+ + Encounter Details +--------+ + + + + | Date | Type | Department | Care Team | Description | +--------+ + + + + | 05/29/ | Telephone | Orthopaedics at | Suman Gavin, | Other (XR Review and | | 2015 | | [address] [address] | MD [address] | Increased R Knee | | | | [address] | [facility] [place] | Pain) | | | | Mailcode: [id number] | [address] | | | | | [facility] | [phone] | | | | | [facility] [place] | | | | | | [address] | | | | | | [phone] | | | +--------+ + + + [...]
--- OUTSIDE RECORDS SUMMARY | ~2019-08-30 | XMS | Encounter Summary ---
Demographics + + + | Address | [address] | | | [place] [address] | + + + | Home Phone | | + + + | Preferred Language | Unknown | + + + | Marital Status | | + + + | Pentecostalism Affiliation | CHR | + + + | Race | White | + + + | Ethnic Group | Not or | + + + Author + + + | Author | [facility] | + + + | Organization | [facility] | + + + | Address | Unknown | + + + | Phone | Unavailable | + + + Support + + + + + | Name | Relationship | Address | Phone | + + + + + | Taye Dennis | ECON | [address] | | | | | [place] | | | | | [address] | | + + + + + Care Team Providers + +------+ + | Care Flour Blender Name | Role | Phone | + [...] | | | | | | [place] [address] | | | +--------+ + + + [...]
--- OUTSIDE RECORDS SUMMARY | ~2019-08-30 | XMS | Encounter Summary ---
Demographics + + + | Address | [address] | | | [place] [address] | + + + | Home Phone | | + + + | Preferred Language | Unknown | + + + | Marital Status | | + + + | Religion Affiliation | CHR | + + + | Race | White | + + + | Ethnic Group | Not or | + + + Author + + + | Author | [facility] | + + + | Organization | [facility] | + + + | Address | Unknown | + + + | Phone | Unavailable | + + + Support + + + + + | Name | Relationship | Address | Phone | + + + + + | Taye Dennis | ECON | [address] | | | | | [place] | | | | | [address] | | + + + + + Care Team Providers + +------+ + | Care Fire Watchman Name | Role | Phone | + +------+ + | Miriam Treadwell | PCP | | + +------+ + Encounter Details +--------+ + + + + | Date | Type | Department | Care Team | Description | +--------+ + + + + | 07/05/ | Pharmacy | Outpatient Retail | | | | 2015 | Visit | [facility] | | | | | | [address] | | | | | | [address] [place], [place] | | | | | | [address] | | | | | | [phone] | | | +--------+ + + + [...]
--- OUTSIDE RECORDS SUMMARY | ~2019-08-30 | XMS | Encounter Summary ---
Demographics + + + | Address | [address] | | | [place] [address] | + + + | Home Phone | | + + + | Preferred Language | Unknown | + + + | Marital Status | | + + + | Confucianism Affiliation | 1041 | + + + | Race | Unknown | + + + | Ethnic Group | Unknown | + + + Author + + + | Author | [facility] | | | and Sameerana | + + + | Organization | [facility] | | | and Sameerana [...] [place], [place] | | | | | [address] | | + + + + + | Bayron Dennis | ECON | [address] | | | | | [place], [place] | | | | | [address] | | + + + + + Care Team Providers + +------+ + | Care Top Knitter Name | Role | Phone | + +------+ + | Prasanth Perry MD | PCP | | + +------+ + Reason for Visit + +--------+ + | Reason | Onset | Comments | | | Date | | + +--------+ + | Appointment | 06/15/ | | | | 2012 | | + +--------+ + Encounter Details +--------+ + + + + | Date | Type | Department | Care Team | Description | +--------+ + + + + | 06/15/ | Telephone | [facility] | Mainor Gustafson MD | Appointment | | 2012 | | GASTROENTEROLOGY | [address] [place] | | | | | [address] [place] | [address] [place] | | | | | [address] [place], [place] | [address] | | | | | [address] | | | | | | [phone] | | | +--------+ + + + [...] this encounter Miscellaneous Notes Telephone Encounter - Mackenzie Acevedo RN - 06/15/2012 3:01 PM PDTPatient [facility] for 07[facility]14/12 as she is feeling better on the advised di et and would like to cancel for now. Removed from [employer] schedule. documented in this encounter Plan of Treatment Not on filedocumented as of this encounter Visit Diagnoses Not on filedocumented in this encounter"
--- OUTSIDE RECORDS SUMMARY | ~2019-08-30 | XMS | Encounter Summary ---
Demographics + + + | Address | [address] | | | [place] [address] | + + + | Home Phone | | + + + | Preferred Language | Unknown | + + + | Marital Status | | + + + | Latter Day Affiliation | CHR | + + + | Race | White | + + + | Ethnic Group | Not or | + + + Author + + + | Author | [facility] | + + + | Organization | [facility] | + + + | Address | Unknown | + + + | Phone | Unavailable | + + + Support + + + + + | Name | Relationship | Address | Phone | + + + + + | Taye Dennis | ECON | [address] | | | | | [place] | | | | | [address] | | + + + + + Care Team Providers + +------+ + | Care Golf Course Superintendent Name | Role | Phone | [...] | | | | | (pigmented), | [place], [place] | [place] | | | | | right knee | [address] | [address] | | | | | Procedures | Phone: | Phone: | | | | | REQUEST TO | [phone] | [phone] | | | | | SURGERY | Fax: | Fax: | | | | | TECHNICAL SUPPORT PROFESSIONAL | | | | | | | OK RMV KNEE | | | | | | | SYNOVIUM,ANT | | | | | | | /POST OK | | | | | | | KNEE | | | | | | | SCOPE,SHAVE | | | | | | | ARTICULAR | | | | | | | CART [place] | | | | | | | [...] | Orthopedics | Diagnoses | Tra, | Romaine, | | | | | | Jarod Napoles, | MD Suman | | | | | extra-articu | MD Eastern | [address] | | | | | lar [place], | [facility] | Ave | | | | | benign | & Fractur | [place], [place] | | | | | neoplasm of | [address] | [address] | | | | | connective | [address] | Phone: | | | | | and other | [place], | [phone] | | | | | soft tissue | [place] [address] | Fax: | | | | | of right | Phone: | [phone] | | | | | lower limb, | [phone] | | | | | | including | Fax: | | | | | | hip | [phone] | | +--------+--------+ + + + + [...] | | | | [address] | [place], [place] | chronicity (Primary | | | | Mailcode: [id number] | [address] | Dx) | | | | Physician's Rafy | [phone] | | | | | [place], [place] | | | | | | [address] | | | | | | [phone] | | | +--------+---------+ + + + [...] cell ca and breast ca. Lives in [place]. Comes in today w son. The patient [...] signs are noted as recorded by the Rotary Kiln Operator. General: Alert, awake, and oriented x3. No [...]
--- OUTSIDE RECORDS SUMMARY | ~2019-08-30 | XMS | Encounter Summary ---
Demographics + + + | Address | [address] | | | [place] [address] | + + + | Home Phone | | + + + | Preferred Language | Unknown | + + + | Marital Status | | + + + | Lutheran Affiliation | CHR | + + + | Race | White | + + + | Ethnic Group | Not or | + + + Author + + + | Author | [facility] | + + + | Organization | [facility] | + + + | Address | Unknown | + + + | Phone | Unavailable | + + + Support + + + + + | Name | Relationship | Address | Phone | + + + + + | Taye Dennis | ECON | [address] | | | | | [place] | | | | | [address] | | + + + + + Care Team Providers + +------+ + | Care Property Man Name | Role | Phone | + [...] +--------+--------+ + + + + Encounter Details +--------+ + + + + | Date | Type | Department | Care Team | Description | +--------+ + + + + | 07/05/ | Hospital | [facility] [address] | Eileen Gavin, | | | 2016 - | Encounter | [address] | [address] | | | | | [place], | [place], [place] | | | 07/06/ | | [place] [address] | [address] | | | 2015 | | [phone] | [phone] | | | | | | | | +--------+ + + [...] a patient satisfaction survey from "[employer]". We devin hamilton appreciate your feedback on the survey to [...] | | Attending Surgeon: Eileen Gavin MD Senior Laboratory Technician(s): Kwadwo Cunningham MD. | | Dmitriy Sauceda [...] 07/06/2015 10:50:03DT: 07/06/2015 | | 11:48:28Job #: [id number] | + + SURGICAL PATHOLOGY (07/06/2015) + [...] in | | | | | | aggregate.Wellness Trainer | | | | | | sections [...] | + + + + + | [facility] | [address] | [place] [address] | | | PATHOLOGY | [address] [...] at 1124, | | | Until Binta 07/06/15 at 1133 | | + +---+ | [...] | | | + +---+ + +-------+ +-------+---+---+ | omeprazole (PRILOSEC) capsule [...] +---------+---+---+ | scopolamine (TRANSDERM-SCOPE) | Applied | 07/06/19 | 1 patch | | | | 1.5 mg (1 mg over 3 days) 1 patch | Patch | 16 7:25 | | | | | 1 patch, transdermal, ONCE, 1 | | AM PDT | | | | | dose, [facility] 07/06/15 at 0800 | | | | | | + + + +---------+---+---+ + +---+ | | | + +---+ | scopolamine (TRANSDERM-SCOPE) | | | 1.5 mg (1 mg over 3 days) 1 | | | dose, Starting Binta 07/06/15 at | | | 0715, Until [...] AM PDT | | | | | Binta 07/06/15 at 2100, Until | | | [...]
--- OUTSIDE RECORDS SUMMARY | ~2019-08-30 | XMS | Encounter Summary ---
Demographics + + + | Address | [address] | | | [place] [address] | + + + | Home Phone | | + + + | Preferred Language | Unknown | + + + | Marital Status | | + + + | Hindu Affiliation | CHR | + + + | Race | White | + + + | Ethnic Group | Not or | + + + Author + + + | Author | [facility] | + + + | Organization | [facility] | + + + | Address | Unknown | + + + | Phone | Unavailable | + + + Support + + + + + | Name | Relationship | Address | Phone | + + + + + | Taye Dennis | ECON | [address] | | | | | [place] | | | | | [address] | | + + + + + Care Team Providers + +------+ + | Care Park Interpretive Specialist Name | Role | Phone | + +------+ + | Miriam Treadwell | PCP | | + +------+ + Encounter Details +--------+ + + + + | Date | Type | Department | Care Team | Description | +--------+ + + + + | 08/15/ | Document-Sc | UNKNOWN DEPARTMENT | Other, Faculty | | | 2016 | anned | [address] [facility] | [phone] | | | | | [address] | | | | | | [place], [place] | | | | | | [address] | | | +--------+ + + + [...]
--- OUTSIDE RECORDS SUMMARY | ~2019-08-30 | XMS | Encounter Summary ---
Demographics + + + | Address | [address] | | | [place] [address] | + + + | Home Phone | | + + + | Preferred Language | Unknown | + + + | Marital Status | | + + + | Rastafari Affiliation | CHR | + + + [...] | Taye Dennis | ECON | [address] | | | | | [place] | | | | | [address] | | + + + + + Care Team Providers + +------+ + | Care Special Events Fundraiser Name | Role | Phone | + +------+ + | Miriam Teradwell | PCP | | + +------+ + Encounter Details +--------+ + + + + | Date | Type | Department | Care Team | Description | +--------+ + + + + | 03/11/ | Ancillary | Registration [id number] | [place], | | | 2005 | Registratio | [facility] | [address] | | | | n | Nico Mailcode: [id number] | [place], [place] | | | | | [place], [place] | [address] | | | | | [address] | [phone] | | | | | [phone] | | | +--------+ + + + [...] | + +--------+ + + + | INR | Routin | 03/11/2005 | | Results for this | | | e | 10:10 AM | | procedure are in the | | | | PST | | results section. | + +--------+ + + + | BASIC METABOLIC SET | Routin | 03/11/2005 | | Results for this | | (NA, K, CL, TCO2, | e | 10:10 AM | | procedure are in the | | BUN, CR, GLU, CA) | | PST | | results section. | + +--------+ + + + | CBC ONLY | Routin | 03/11/2005 | | Results for this | | | e | 10:10 AM | | procedure are in the | | | | PST | | results section. | + +--------+ + + + | APTT (ACT. PART. | Routin | 03/11/2005 | | Results for this | | THROMBO TIME) | e | 10:10 AM | | procedure are in the | | | | PST | | results section. | + +--------+ + + + | TYPE AND SCREEN | Routin | 03/11/2005 | | Results for this | | | e | 10:10 AM | | procedure are in the | | | | PST | | results section. | + +--------+ + + + documented in this encounter Results TYPE AND SCREEN (03/11/2005 10:10 AM PST) + +-------+ + + + | Component | Value | Ref Range | Performed | Pathologist | | | | | At | Signature | + +-------+ + + + | ABO GROUP | O | | [facility] | | | | | | DEPARTMENT | | | | | | OF | | | | | | PATHOLOGY | | + +-------+ + + + | RH TYPE | NEG | | [facility] | | | | | | DEPARTMENT | | | | | | OF | | | | | | PATHOLOGY | | + +-------+ + + + | ANTIBODY | NEG | | [facility] | | | SCREEN | | | DEPARTMENT | | | | | | OF | | | | | | PATHOLOGY | | + +-------+ + + + + + | Specimen | + + | | + + + + + + + | Performing | Address | City/State/Zipcode | Phone Number | | Organization | | | | + + + + + | [facility]MENT [facility] | [address] | [place] [address] | | | PATHOLOGY | [address] | | | + + + + + | [facility] | [address] | [place] [address] | | | PATHOLOGY | [address] | | | + + + + + CBC ONLY WITH PLATELET (03/11/2005 10:10 AM PST) + +-------+ + + + | Component | Value | Ref Range | Performed | Pathologist | | | | | At | Signature | + +-------+ + + + | WHITE CELL | 4.5 | 4.4 - 11.0 K/cu | [facility] | | | COUNT | | mm | DEPARTMENT | | | | | | OF | | | | | | PATHOLOGY | | + +-------+ + + + | RED CELL | 4.69 | 4.00 - 5.20 | [facility] | | | COUNT | | M/cu mm | DEPARTMENT | | | | | | OF | | | | | | PATHOLOGY | | + +-------+ + + + | HEMOGLOBIN | 14.1 | 12.0 - 16.0 | [facility] | | | | | g/dL | DEPARTMENT | | | | | | OF | | | | | | PATHOLOGY | | + +-------+ + + + | HEMATOCRIT | 39.9 | 36.0 - 46.0 % | [facility] | | | | | | DEPARTMENT | | | | | | OF | | | | | | PATHOLOGY | | + +-------+ + + + | MCV | 85.0 | 80.0 - 96.0 fL | [facility] | | | | | | DEPARTMENT | | | | | | OF | | | | | | PATHOLOGY | | + +-------+ + + + | MCHC | 35.3 | 33.4 - 35.5 | [facility] | | | | | g/dL | DEPARTMENT | | | | | | OF | | | | | | PATHOLOGY | | + +-------+ + + + | RDW | 12.2 | 11.5 - 15.0 % | [facility] | | | | | | DEPARTMENT | | | | | | OF | | | | | | PATHOLOGY | | + +-------+ + + + | PLATELET | 179 | 150 - 400 K/cu | [facility] | | | COUNT | | mm | DEPARTMENT | | | | | | OF | | | | | | PATHOLOGY | | + +-------+ + + + + + | Specimen | + + | | + + + + + + + | Performing | Address | City/State/Zipcode | Phone Number | | Organization | | | | + + + + + | [facility] | [address] | [place] [address] | | | PATHOLOGY | [address] | | | + + + + + | [facility] DEPARTMENT | [address] | [place] [address] | | | PATHOLOGY | [address] | | | + + + + + PROTHROMBIN TIME (03/11/2005 10:10 AM PST) + + + + + + | Component | Value | Ref Range | Performed | Pathologist | | | | | At | Signature | + + + + + + | INR | 0.95Comment: | 0.90 - 1.20 INR | [facility] | | | | PT INR Therapeutic | | DEPARTMENT | | | | ranges for full | | OF | | | | anticoagulation: | | PATHOLOGY | | | | INR for | | | | | | Venous Thromboembolism | | | | | | | | | | | | (2.0-3.0)INR | | | | | | INR for most | | | | | | patients with mech. | | | | | | valves (2.5-3.5)INR | | | | + + + + + + + + | Specimen | + + | | + + + + + + + | Performing | Address | City/State/Zipcode | Phone Number | | Organization | | | | + + + + + | [facility] | [address] [facility] | [place] [address] | | | PATHOLOGY | [address] | | | + + + + + | [facility] DEPARTMENT | [address] [facility] | [place] [address] | | | PATHOLOGY | [address] | | | + + + + + BASIC METABOLIC SET (03/11/2005 10:10 AM PST) + +-------+ + + + | Component | Value | Ref Range | Performed | Pathologist | | | | | At | Signature | + +-------+ + + + | GLUCOSE, | 101 | 65 - 110 mg/dL | [facility] | | | PLASMA | | | DEPARTMENT | | | (LAB) | | | OF | | | | | | PATHOLOGY | | + +-------+ + + + | BUN, PLASMA | 15 | 6 - 20 mg/dL | [facility] | | | (LAB) | | | DEPARTMENT | | | | | | OF | | | | | | PATHOLOGY | | + +-------+ + + + | CREATININE | 0.8 | 0.6 - 1.1 mg/dL | [facility] | | | PLASMA | | | DEPARTMENT | | | (LAB) | | | OF | | | | | | PATHOLOGY | | + +-------+ + + + | SODIUM, | 139 | 136 - 145 | [facility] | | | PLASMA | | mmol/L | DEPARTMENT | | | (LAB) | | | OF | | | | | | PATHOLOGY | | + +-------+ + + + | POTASSIUM, | 3.6 | 3.5 - 5.1 | [facility] | | | PLASMA | | mmol/L | DEPARTMENT | | | (LAB) | | | OF | | | | | | PATHOLOGY | | + +-------+ + + + | CHLORIDE, | 105 | 98 - 107 mmol/L | [facility] | | | PLASMA | | | DEPARTMENT | | | (LAB) | | | OF | | | | | | PATHOLOGY | | + +-------+ + + + | TOTAL CO2, | 26 | 23 - 29 mmol/L | [facility] | | | PLASMA | | | DEPARTMENT | | | (LAB) | | | OF | | | | | | PATHOLOGY | | + +-------+ + + + | CALCIUM, | 9.4 | 8.5 - 10.5 | [facility] | | | PLASMA | | mg/dL | DEPARTMENT | | | (LAB) | | | OF | | | | | | PATHOLOGY | | + +-------+ + + + + + | Specimen | + + | | + + + + + | Narrative | Performed At | + + + | [id number] Estimated GFR > 60 mL/min/1.73 sq m if non- | [facility] | | [id number] Estimated GFR > 60 mL/min/1.73 sq m if GFR | DEPARTMENT OF | | is estimated using the MDRD equation recommended by the National | PATHOLOGY | | Kidney Disease Education Program. Estimated GFR Interpretive | | | Information: <60 mL/min/1.73 sq m Chronic Kidney Disease <15 | | | mL/mon/1.73 sq m Kidney Failure Estimated GFR greater than | | | 60mL/min/1.73 is of limited clinical Value. The MDRD equation is | | | not valid in the following situations: - Patients under 18 years of | | | age - Severe malnutrition or obesity - Vegetarian diet - Rapidly | | | changing kidney function | | + + + + + + + + | Performing | Address | City/State/Zipcode | Phone Number | | Organization | | | | + + + + + | [facility] DEPARTMENT | [facility] [facility] | [place] [address] | | | PATHOLOGY | [address] | | | + + + + + | [facility] | [address] [facility] | [place] [address] | | | PATHOLOGY | [address] | | | + + + + + APTT (ACT. PART. THROMBO TIME) (03/11/2005 10:10 AM PST) + + + + + + | Component | Value | Ref Range | Performed | Pathologist | | | | | At | Signature | + + + + + + | APTT | 31.1Comment: | 26.0 - 36.0 | [facility] | | | | APTT Therapeutic Range | seconds | DEPARTMENT | | | | | | OF | | | | | | PATHOLOGY | | | | (75-120)sec | | | | | | Heparin levels | | | | | | of 0.35-0.7 U/mL | | | | + + + + + + + + | Specimen | + + | | + + + + + + + | Performing | Address | City/State/Zipcode | Phone Number | | Organization | | | | + + + + + | [facility] | [address] | [place] [address] | | | PATHOLOGY | [address] | | | + + + + + | [facility] | [address] | [place] [address] | | | PATHOLOGY | [address] | | | + + + + + documented in this encounter Visit Diagnoses Not on filedocumented in this encounter"
--- OUTSIDE RECORDS SUMMARY | ~2019-08-30 | XMS | Encounter Summary ---
Demographics + + + | Address | [address] | | | [place] [address] | + + + | Home Phone [...] + + + | Author | [facility] | + + + | Organization | [facility] | + + + | Address | Unknown | + + + | Phone | Unavailable | + + + Support + + + + + | Name | Relationship | Address | Phone | + + + + + | Taye Dennis | ECON | [address] | | | | | [place] | | | | | [address] | | + + + + + Care Team Providers + +------+ + | Care Shop Service Technician Name | Role | Phone | + [...] DEBRIDEMENT OF | | | | [address] [facility] | [place], [place] | SYNOVITIS RIGHT | | | | Hospital Admitting | [address] | ANTERIOR KNEE; OPEN | | | | Desk Located on the | [phone] | SYNOVECTOMY OF RIGHT | | | | 9th floor | | POSTERIOR KNEE AND | | | | [place], [place] | | | | | | [address] | | | +--------+---------+ + + + [...] | | Attending Surgeon: Eileen Gavin MD Television Repair Teacher(s): Kwadwo Cunningham MD. | | Dmitriy Sauceda [...] 07/06/2015 10:50:03DT: 07/06/2015 | | 11:48:28Job #: [id number] | + + SURGICAL PATHOLOGY (07/06/2015) + [...] in | | | | | | aggregate.Engraving Patternmaker | | | | | | sections [...] | + + + + + | [facility] | [address] | [place] [address] | | | PATHOLOGY | [address] [...] days) 1 | | | dose, Starting [facility] 07/06/15 at | | | 0715, [...] AM PDT | | | | | [facility] 07/06/15 at 2100, Until | | [...]
--- OUTSIDE RECORDS SUMMARY | ~2019-08-30 | XMS | Encounter Summary ---
Demographics + + + | Address | [address] | | | [place] [address] | + + + | Home Phone | | + + + | Preferred Language | Unknown | + + + | Marital Status | | + + + | Jain Affiliation | CHR | + + + | Race | White | + + + | Ethnic Group | Not or | + + + Author + + + | Author | [facility] | + + + | Organization | [facility] | + + + | Address | Unknown | + + + | Phone | Unavailable | + + + Support + + + + + | Name | Relationship | Address | Phone | + + + + + | Taye Dennis | ECON | [address] | | | | | [place] | | | | | [address] | | + + + + + Care Team Providers + +------+ + | Care Cement Side Laster Name | Role | Phone | + [...] | | | | [address] | [place], [place] | | | | | Mailcode: [id number] | [address] | | | | | [facility] | [phone] | | | | | [place], [place] | | | | | | [address] | | | | | | [phone] | | | +--------+ + + + [...]
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
--- OUTSIDE RECORDS SUMMARY | ~2019-08-30 | XMS | Encounter Summary ---
Demographics + + + | Address | [address] | | | [place] [address] | + + + | Home Phone | | + + + | Preferred Language | Unknown | + + + | Marital Status | | + + + | Adventism Affiliation | 1041 | + + + | Race | Unknown | + + + | Ethnic Group | Unknown | + + + Author + + + | Author | [facility] | | | and Sameerana | + + + | Organization | [facility] | | | and [...] [place], [place] | | | | | [address] | | + + + + + | Bayron Dennis | ECON | [address] | | | | | [place], [place] | | | | | [address] | | + + + + + Care Team Providers + +------+ + | Care Agronomy Internship Name | Role | Phone | + +------+ + PCP | Unavailable | + +------+ + Encounter Details +--------+ + + + + | Date | Type | Department | Care Team | Description | +--------+ + + + + | 10/28/ | Hospital | [facility] | Ros[place], | | | 2008 - | Encounter | [facility] | Raymundo Knox MD [address] | | | | [place] [address] | [address] [address] | | | 10/31/ | | [place], [place] | [place] [address] | | | 2008 | | [address] | [phone] | | | | | [phone] | | | +--------+ + + + [...]
--- OUTSIDE RECORDS SUMMARY | ~2019-08-30 | XMS | Encounter Summary ---
Demographics + + + | Address | [address] | | | [place] [address] | + + + | Home Phone | | + + + | Preferred Language | Unknown | + + + | Marital Status | | + + + | Anglican Affiliation | CHR | + + + [...] | Taye Dennis | ECON | [address] | | | | | [place] | | | | | [address] | | + + + + + Care Team Providers + +------+ + | Care Bouffant Curtain Machine Tender Name | Role | Phone | [...] [place] | | | | | | [address] | | | +--------+ + + + [...]
--- OUTSIDE RECORDS SUMMARY | ~2019-08-30 | XMS | Encounter Summary ---
Demographics + + + | Address | [address] | | | [place] [address] | + + + | Home Phone | | + + + | Preferred Language | Unknown | + + + | Marital Status | | + + + | Faith Affiliation | CHR | + + + | Race | White | + + + | Ethnic Group | Not or | + + + Author + + + | Author | [facility] | + + + | Organization | [facility] | + + + | Address | Unknown | + + + | Phone | Unavailable | + + + Support + + + + + | Name | Relationship | Address | Phone | + + + + + | Taye Dennis | ECON | [address] | | | | | [place] | | | | | [address] | | + + + + + Care Team Providers + +------+ + | Care Bindery Production Manager Name | Role | Phone | + +------+ + | Miriam Treadwell | PCP | | + +------+ + Reason for Referral Diagnostic Testing (Routine) +--------+--------+ + + + + | Status | Reason | Specialty | Diagnoses / | Referred By | Referred To | | | | | Procedures | Contact | Contact | +--------+--------+ + + + + | Closed | | Radiology | Diagnoses | Romaine, | | | | | | PVNS | Suman, | | | | | | (pigmented | MD [address] | | | | | | villonodular | [address] | | | | | | synovitis) | [place], [place] | | | | | | Procedures | [address] | | | | | | MRI KNEE RT | Phone: | | | | | | WWO | [phone] | | | | | | CONTRAST | Fax: | | | | | | | [phone] | | +--------+--------+ + + + + Reason for Visit PROC - Inpatient Surgery (Routine) +--------+--------+ + + + + | Status | Reason | Specialty | Diagnoses / | Referred By | Referred To | | | | | Procedures | Contact | Contact | +--------+--------+ + + + + | Closed | | Orthopedics | Diagnoses | Doung, | Doung, | | | | | | Suman, | MD Suman | | | | | Villonodular | [address] | | | | | synovitis | [address] | Ave | | | | | (pigmented), | [place] | | | | | right knee | [address] | [address] | | | | | Procedures | Phone: | Phone: | | | | | REQUEST TO | [phone] | [phone] | | | | | SURGERY | Fax: | Fax: | | | | | RN HEMODIALYSIS CHARGE | [phone] | [phone] | | | | | RI RMV KNEE | | | | | | | SYNOVIUM,ANT | | | | | | | /POST RI | | | | | | | KNEE | | | | | | | SCOPE,SHAVE | | | | | | | ARTICULAR | | | | | | | CART RI | | | | | | | REVISE/REPAI | | | | | | | R ARM/LEG | | | | | | | NERVE | | | +--------+--------+ + + + + Encounter Details +--------+---------+ + + + | Date | Type | Department | Care Team | Description | +--------+---------+ + + + | 08/15/ | Office | Orthopaedics at | Suman Gavin, | PVNS (pigmented | | 2016 | Visit | [facility] [address] | MD [address] | villonodular | | | | [address] | [place], [place] | synovitis) (Primary | | | | Mailcode: [id number] | [id number] | Dx) | | | | [facility] | [phone] | | | | | [place], [place] | | | | | | [address] | | | | | | [phone] | | | +--------+---------+ + + + [...] + + + | Blood Pressure | 159/78 | 08/16/2015 11:18 AM | | | | | PDT | | + + + + + | Pulse | 75 | 08/16/2015 11:18 AM | | | | | PDT | | + + + + + | Temperature | 37.1 C (98.7 F) | 08/16/2015 11:18 AM | | | | | [...] Weight | 71.2 kg (157 lb) | 08/16/2015 11:18 AM | | | | | PDT | | + + + + + | Height | 161.3 cm (5' 3.5") | 08/16/2015 11:18 AM | | | | | PDT | | + + + + + | Body Mass Index | 27.38 | 08/16/2015 11:18 AM | | | | | PDT | | + + + + + documented in this encounter Progress Notes Suman Gavin MD - 08/16/2015 2:27 PM PDTDx: intraarticular diffuse soft tissue mass R knee c/w PVNS Treatment: Right knee arthroscopy with partial anterior synovectomy, posterior synovectomy with dissec tion of peroneal nerve 07/06/2015 HPI: 69 y.o. F here for f/u. Has some paresthesias in peroneal nerve distribution. Better w gabapentin but gabapentin causing dizziness and headache. Ambulating without assistive d evice. No fevers. Getting PT. With some pain anterior knee. PE: Ht 1.613 m (5' 3.5"), Wt 71.215 kg (157 lb), BP 159/78, Pulse 75, Temperature 37.1 C (98. 7 F), Temperature source Oral, BMI 27.37 kg/(m^2). Incisions all well healed No effusion Stable v/v/a/p stress Normal gait 5-/5 Q strength 5/5 TA/EHL/GS With sens dorsal and plantar foot ROM 0-110 Pathology: A: Right anterior knee synovium, synovectomy: - Tenosynovial giant cell tumor, diffuse type (Pigmented villonodular synovitis) B: Posterior knee synovium, synovectomy: - Tenosynovial giant cell tumor, diffuse type (Pigmented villonodular synovitis) Comment: Select slides also seen by Dr. Latisha Garay. Case Seen By: Salty Rodrigez M.D./Surgical Pathology Fellow [place] Graves M.D./Pathologist A/P: s/p excision PVNS R knee -cont PT -cont gabapentin. If side effects too strong, can wean to 200mg TID. Currently on 300mg T ID. -rtc 3-4 mo with new MRI R knee 1 2:34 PM PDTdocumented in this encounter Plan of Treatment + +---------+--------+ + + | Name | Type | Priori | Associated Diagnoses | Order Schedule | | | | ty | | | + +---------+--------+ + + | MRI KNEE RT WWO | Imaging | Routin | PVNS (pigmented | Expected: | | CONTRAST | | e | villonodular | 11/16/2015, Expires: | | | | | synovitis) | 09/14/2016 | + +---------+--------+ + + documented as of this encounter Procedures + +--------+ + + + | Procedure Name | Priori | Date/Time | Associated Diagnosis | Comments | | | ty | | | | + +--------+ + + + | RADIOLOGY | | 11/03/2015 | | Results for this | | | | 12:00 AM | | procedure are in the | | | | PDT | | results section. 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
--- OUTSIDE RECORDS SUMMARY | ~2019-08-30 | XMS | Encounter Summary ---
Demographics + + + | Address | [address] | | | [place] [address] | + + + | Home Phone | | + + + | Preferred Language | Unknown | + + + | Marital Status | | + + + | Presybeterian Affiliation | 1041 | + + + | Race | Unknown | + + + | Ethnic Group | Unknown | + + + Author + + + | Author | [facility] | | | and Sameerana | + + + | Organization | [facility] | | | and [...] [place], [place] | | | | | [address] | | + + + + + | Bayron Dennis | ECON | [address] | | | | | [place], [place] | | | | | [address] | | + + + + + Care Team Providers + +------+ + | Care Airline Attendant Name | Role | Phone | + +------+ + | Prasanth Perry MD | PCP | | + +------+ + Encounter Details +--------+ + + + + | Date | Type | Department | Care Team | Description | +--------+ + + + + | 11/15/ | Orders Only | [facility] FOOT | Zachary Cuenca, | | | 2014 | | AND ANKLE XRAY [address] | DPM [address] | | | | | [address] | [address] [place], | | | | | [place], [place] | [place] [address] | | | | | [address] | [phone] | | | | | [phone] | | | +--------+ + + + [...] LEFT 3 + VW | Routin | 11/15/2014 | | Results for this | | | e | 11:30 AM | | procedure are in the | | | | PDT | | results section. | + +--------+ + + + documented in this encounter Results XR Foot Left 3 + Vw (11/15/2014 11:30 AM PDT) + + | Specimen | + + | | + + + + + | Impressions | Performed At | + + + | Small plantar heel spur, otherwise normal foot radiographs | | | | | | No change from XR FOOT LEFT with report dated 05/11/2014 8:35 AM. | | | | | + + + + + + | Narrative | Performed At | + + + | Radiographic exam: Three weightbearing views of the left foot from a | | | Female patient, 69 years of age were [...] of the left foot from Alfredo patient, 69 years of [...] spur, otherwise normal foot radiographs | | No change from XR | | FOOT LEFT with report dated 05/11/2014 8:35 AM. | | | | | |No change from XR FOOT LEFT with report dated 05/11/2014 8:35 AM. | | | + + documented in this encounter Visit Diagnoses Not on filedocumented in this encounter"
--- OUTSIDE RECORDS SUMMARY | ~2019-08-30 | XMS | Encounter Summary ---
Demographics + + + | Address | [address] | | | [place] [address] | + + + | Home Phone | | + + + | Preferred Language | Unknown | + + + | Marital Status | | + + + | Bahai Affiliation | CHR | + + + | Race | White | + + + | Ethnic Group | Not or | + + + Author + + + | Author | [facility] | + + + | Organization | [facility] | + + + | Address | Unknown | + + + | Phone | Unavailable | + + + Support + + + + + | Name | Relationship | Address | Phone | + + + + + | Taye Dennis | ECON | [address] | | | | | [place] | | | | | [address] | | + + + + + Care Team Providers + +------+ + | Care Websphere Commerce Consultant Name | Role | Phone | + +------+ + | Miriam Treadwell | PCP | | + +------+ + Encounter Details +--------+ + + + + | Date | Type | Department | Care Team | Description | +--------+ + + + + | 05/21/ | Hospital | Diagnostic | | | | 2015 | Encounter | Radiology at [facility] | | | | | | [address] | | | | | | [address] [facility] | | | | | | [place] | | | | | | [place], [place] | | | | | | [address] | | | | | | [phone] | | | +--------+ + + + [...] | + +--------+ + + + | X-RAY KNEE 4 VIEWS | Routin | 05/22/2015 | Right knee pain, | Results for this | | RIGHT | e | 11:57 AM | unspecified | procedure are in the | | | | PDT | chronicity | results section. | + +--------+ + + + documented in this encounter Results X-RAY KNEE 4 VIEWS [...] | | | | | | MD MARIA ISABEL I personally | | | | | | [...] | | + +---------+ + + | [facility] DEPARTMENT OF | | | | | RADIOLOGY | | | | + +---------+ + + documented in this encounter Visit Diagnoses + + | Diagnosis | + + | Right knee pain, unspecified chronicity | + + documented in this encounter"
--- OUTSIDE RECORDS SUMMARY | ~2019-08-30 | XMS | Encounter Summary ---
Demographics + + + | Address | [address] | | | [place] [address] | + + + | Home Phone | | + + + | Preferred Language | Unknown | + + + | Marital Status | | + + + | Anabaptist Affiliation | CHR | + + + [...] | Taye Dennis | ECON | [address] | | | | | [place] | | | | | [address] | | + + + + + Care Team Providers + +------+ + | Care Health And Fitness Instructor Name | Role | Phone | + +------+ + | Miriam Treadwell | PCP | | + +------+ + Encounter Details +--------+ + + + + | Date | Type | Department | Care Team | Description | +--------+ + + + + | 03/11/ | Ancillary | Registration [address] | [place] Lloyd, | | | 2005 | Registratio | [address] | [address] | | | | n | Nico Mailcode: [id number] | [place], [place] | | | | | [place], [place] | [address] | | | | | [address] | [phone] | | | | | [phone] | | | +--------+ + + + [...] DEPARTMENT OF | [address] | [place] [address] | | | PATHOLOGY | [address] | | | + + + + + | [facility] DEPARTMENT OF | [address] | [place] [address] | | | PATHOLOGY | [address] [...] 4.5 | 4.4 - 11.0 K/cu | INSU | | | COUNT | | mm [...] DEPARTMENT OF | [address] | [place] [address] | | | PATHOLOGY | [address] | | | + + + + + | [facility] DEPARTMENT | [address] | [place] [address] | | | PATHOLOGY | [address] | | | + + + + + PROTHROMBIN TIME (03/11/2005 10:10 AM PST) + + + + + + | Component | Value | Ref Range | Performed | Pathologist | | | | | At | Signature | + + + + + + | INR | 0.95Comment: | 0.90 - 1.20 INR | [facility] | | | | PT INR Therapeutic [...] | + + + + + | [facility] | [address] [facility] | [place] [address] | | | PATHOLOGY | [address] | | | + + + + + | [facility] DEPARTMENT | [address] [facility] | [place] [address] | | | PATHOLOGY | [address] [...] Performed At | + + + | [address] Estimated GFR > 60 mL/min/1.73 sq m if non- | [facility] | | [address] Estimated GFR > 60 mL/min/1.73 sq m [...] | + + + + + | [facility] DEPARTMENT | [facility] | [place] [address] | | | PATHOLOGY | [address] | | | + + + + + | [facility] | [address] [facility] | [place] [address] | | | PATHOLOGY | [address] [...] | + + + + + | [facility] | [address] | [place] [address] | | | PATHOLOGY | [address] | | | + + + + + | [facility] | [address] | [place] [address] | | | PATHOLOGY | [address] | | | + + + + + documented in this encounter Visit Diagnoses Not on filedocumented in this encounter"
--- OUTSIDE RECORDS SUMMARY | ~2019-08-30 | XMS | Encounter Summary ---
Demographics + + + | Address | [address] | | | [place] [address] | + + + | Home Phone | | + + + | Preferred Language | Unknown | + + + | Marital Status | | + + + | Moravian Affiliation | CHR | + + + | Race | White | + + + | Ethnic Group | Not or | + + + Author + + + | Author | [facility] | + + + | Organization | [facility] | + + + | Address | Unknown | + + + | Phone | Unavailable | + + + Support + + + + + | Name | Relationship | Address | Phone | + + + + + | Taye Dennis | ECON | [address] | | | | | [place] | | | | | [address] | | + + + + + Care Team Providers + +------+ + | Care Distilling Department Supervisor Name | Role | Phone | + [...] + + + + | 07/05/ | Anesthesia | 6A Intra Op 3181 | Neel Díaz, | | | 2016 | Event | [address] | MD [address] | | | | | Nico [facility] | [facility] | | | | | Hospital Admitting | [place], [place] | | | | | Desk Located on the | [address] | | | | | 9th floor | [phone] | | | | | [place], [place] | | | | | | [address] | Dexter Post, DO | | +--------+ + + + + Anesthesia Record + + [...] 0 | Quick Note | Umm Abdalla PROGRAM MANAGEMENT MANAGER | | | 7 | | | [...] | Meds | +------+ + + + | Name | Total | + + + | scopolamine (TRANSDERM-SCOPE) | 1 mg | | patch | | + + + | fentaNYL | 350 mcg | + + + | lidocaine 2% | 40 mg | + + + | propofol | 100 mg | + + + | succinylcholine | 100 mg | + + + | dexamethasone | 4 mg | + + + | ceFAZolin (ANCEF) injection 2 g | 2 g | + + + | propofol INF | 336,785 mcg | + + + | ePHEDrine | 10 mg | + + + | PHENYLEPHrine | 50 mcg | + + + | ondansetron | 8 mg | + + + | lactated ringers IV | 1,300 mL | + + + + + | Name | + + | Insp Sevo | + + | Et Sevo | + + | Insp N2O % | + + | O2 Flow Rate (Total Liters) | + + | Air Flow rate (L/min) | + + + + | No blood administrations on file. | + + +--------+ + + + | Type | Details | Placement | Removal | +--------+ + + + | Periph | 07/06/15; 614; Right; Wrist; 20 | 07/06/15614 by | 07/07/15 0000 by | | ashleel | g; None; Positive; 07/07/15 | Kaylan Hayes RN | Bhargavi Echevarria RN | | IV | | | | +--------+ + + + | Urethr | 07/06/15; 0739; Nolan Cordova RN; | 07/06/15 0739 by | 07/06/15 1035 by | | al | Alexandra; 16 Fr.; 5 mL; 07/06/15; | Renetta Lilly RN | Renetta Lilly RN | | Cathet | 1035 | | | | er | | | | +--------+ + + + | Incisi | 07/06/15; 0903; Mery Gavin MD; | 07/06/15 0903 by | 12/20/16 0659 by | | [...] + + + | Incisi | 07/06/15; 957; Mery De Luna MD; | 07/06/15957 by | 12/20/1659 by | | on | Right; Lateral, [...] | 07/06/15; 0958; Mery Gavin MD; | 07/06/15957 by | 12/20/16 0659 [...] in this encounter Administered Medications + +--------+ +------+------+------+ | Medication Order | MAR | Action | Dose | Rate | Site | | | Action | Date | | | | + +--------+ +------+------+------+ | ceFAZolin (ANCEF) injection 2 g | Given | 07/05/ | 2 g | | | | 2 g, intravenous, PREPROCEDURE | | 16 7:44 | | | | | ONCE, 1 dose, Starting Binta 07/06/15 | | AM PDT | | | | | at 0549, Until Binta 07/06/15 at | | | | | | | 0744 | | | | | | + +--------+ +------+------+------+ +---+---+ | | | +---+---+ + +-------+ +------+---+---+ | dexamethasone (DECADRON) | Given | 07/06/19 | 4 mg | | | | injection intravenous, | | 16 7:44 | | | | | INTRAPROCEDURE PRN, Starting Binta | | AM PDT | | | | | 07/06/15 at 0744, Until Binta 07/06/15 | | | | | | | at 1109 | | | | | | + +-------+ +------+---+---+ +---+---+ | | | +---+---+ + +-------+ +-------+---+---+ | ePHEDrine injection | Given | 07/06/19 | 10 mg | | | | intravenous, INTRAPROCEDURE PRN, | | 16 8:37 | | | | | Starting Binta 07/06/15 at 0837, | | AM PDT | | | | | Until Binta 07/06/15 at 1109 | | | | | | + +-------+ +-------+---+---+ +---+---+ | | | +---+---+ + +-------+ +--------+---+---+ | fentaNYL (SUBLIMAZE) injection | Given | 07/06/19 | 50 mcg | | | | intravenous, INTRAPROCEDURE PRN, | | 16 10:58 | | | | | Starting Binta 07/06/15 at 0715, | | AM PDT | | | | | Until Binta 07/06/15 at 1109, | | | | | | | moderate pain | | | | | | + +-------+ +--------+---+---+ +-------+ +--------+---+---+ | Given | 07/06/19 | 50 mcg | | | | | 16 10:37 | | | | | | AM PDT | | | | +-------+ +--------+---+---+ | Given | 07/06/19 | 50 mcg | | | | | 16 9:45 | | | | | | AM PDT | | | | +-------+ +--------+---+---+ +---+---+ | | | +---+---+ + + + +---+---+---+ | lactated ringers IV 10 mL/hr, | given by | 07/06/19 | | | | | intravenous, PROCEDURE | | 16 11:17 | | | | | CONTINUOUS, Starting Binta 07/06/15 | anesthes | AM PDT | | | | | at 0600, Until Binta 07/06/15 at 1701 | iology | | | | | + + + +---+---+---+ +---------+ +---+---+---+ | New Bag | 07/06/19 | | | | | | 16 10:15 | | | | | | AM PDT | | | | +---------+ +---+---+---+ | New Bag | 07/06/19 | | | | | | 16 7:31 | | | | | | AM PDT | | | | +---------+ +---+---+---+ +---+---+ | | | +---+---+ + +-------+ +-------+---+---+ | lidocaine PF (XYLOCAINE MPF) 20 | Given | 07/06/19 | 40 mg | | | | mg/mL (2 %) injection | | 16 7:37 | | | | | INTRAPROCEDURE PRN, Starting Binta | | AM PDT | | | | | 07/06/15 at 0737, Until Binta 07/06/15 | | | | | | | at 1109 | | | | | | + +-------+ +-------+---+---+ +---+---+ | | | +---+---+ + +-------+ +------+---+---+ | ondansetron (ZOFRAN) injection | Given | 07/06/19 | 4 mg | | | | INTRAPROCEDURE PRN, Starting Binta | | 16 10:15 | | | | | 07/06/15 at 1000, Until Binta 07/06/15 | | AM PDT | | | | | at 1109 | | | | | | + +-------+ +------+---+---+ +-------+ +------+---+---+ | Given | 07/06/19 | 4 mg | | | | | 16 10:00 | | | | | | AM PDT | | | | +-------+ +------+---+---+ +---+---+ | | | +---+---+ + +-------+ +--------+---+---+ | PHENYLEPHrine 100 mcg/mL IV | Given | 07/06/19 | 50 mcg | | | | syringe INTRAPROCEDURE PRN, | | 16 8:42 | | | | | Starting Binta 07/06/15 at 0842, | | AM PDT | | | | | Until Binta 07/06/15 at 1109, blood | | | | | | | pressure | | | | | | + +-------+ +--------+---+---+ +---+---+ | | | +---+---+ + +---------+ + +--------+---+ | propofol (DIPRIVAN) injection | New Bag | 07/06/19 | 25 | 10.47 | | | INTRAPROCEDURE CONTINUOUS PRN, | | 16 7:45 | mcg/kg/m | mL/hr | | | Starting Binta 5/5/16 at 0745, | | AM PDT | in | | | | Until Binta 07/06/15 at 1109 | | | | | | + +---------+ + +--------+---+ +---+---+ | | | +---+---+ + +-------+ +--------+---+---+ | propofol intravenous, | Given | 07/06/19 | 100 mg | | | | INTRAPROCEDURE PRN, Starting Binta | | 16 7:38 | | | | | 07/06/15 at 0738, Until Bitna 07/06/15 | | AM PDT | | | | | at 1109 | | | | | | + +-------+ +--------+---+---+ +---+---+ | | | +---+---+ + +-------+ +------+---+---+ | scopolamine (TRANSDERM-SCOPE) | Given | 07/06/19 | 1 mg | | | | 1.5 mg (1 mg over 3 days) | | 16 7:19 | | | | | INTRAPROCEDURE PRN, Starting Binta | | AM PDT | | | | | 07/06/15 at 0719, Until Binta 07/06/15 | | | | | | | at 1109 | | | | | | + +-------+ +------+---+---+ +---+---+ | | | +---+---+ + +-------+ +--------+---+---+ | SUCCINYLCHOLINE CHLORIDE 20 | Given | 07/06/19 | 100 mg | | | | MG/ML INJ (PROSED/RSI) | | 16 7:38 | | | | | intravenous, INTRAPROCEDURE PRN, | | AM PDT | | | | | Starting Binta 07/06/15 at 0738, | | | | | | | Until Binta 07/06/15 at 1109, | | | | | | | Neuromuscular block | | | | | | + +-------+ +--------+---+---+ +---+---+ | | | +---+---+ documented in this encounter"
--- OUTSIDE RECORDS SUMMARY | ~2019-08-30 | XMS | Clinical Summary ---
Demographics + + + | Address | [address] | | | [place] [address] | + + + | Home Phone | | + + + | Preferred Language | Unknown | + + + | Marital Status | | + + + | Episcopalian Affiliation | CHR | + + + | Race | White | + + + | Ethnic Group | Not or | + + + Author + + + | Author | [facility] | + + + | Organization | [facility] | + + + | Address | Unknown | + + + | Phone | Unavailable | + + + Support + + + + + | Name | Relationship | Address | Phone | + + + + + | Taye Dennis | ECON | [address] | | | | | [place] | | | | | [address] | | + + + + + Care Team Providers + +------+ + | Care Motel Front Desk Clerk Name | Role | Phone | + +------+ + | Miriam Treadwell | PCP | | + +------+ + Source Comments CHIQUITA is fully live on both [facility] and [facility].Count Includes [facility] & [facility] ([facility]3] Allergies + + + + + + [...] | | + + + +---------+------+------+-------+ | atorvastatin 20 mg | | | 0 | 01/0 | | Activ | | oral tablet | | | | 8/20 | | e | | | | | | 15 | | | + + + +---------+------+------+-------+ | omeprazole 40 mg | Take by mouth. | | 0 | 09/1 | | Activ | | oral capsule,delayed | | | | 2/20 | | e | | release(DR/EC) | | | | 12 | | | + + + +---------+------+------+-------+ | busPIRone 5 mg | | | 0 | 02/2 | | Activ | | oral tablet | | | | 0/20 | | e | | | | | | 15 | | | + + + +---------+------+------+-------+ | zolpidem 5 mg oral | | | 0 | 12/0 | | Activ | | tablet | | | | 3/20 | | e | | | | | | 14 | | | + + + +---------+------+------+-------+ | acetaminophen 325 | Take 650 mg by mouth | | 0 | | | Activ | | mg oral tablet | every four hours as | | | | | e | | | needed. | | | | | | + + + +---------+------+------+-------+ | oxyCODONE, | Take 1 to 2 tablets | 80 | 0 | 05/0 | | Activ | | immediate release, 5 | by mouth every three | tablet | | 5/20 | | e | | mg oral tablet | hours as needed for | | | 16 | | | | | severe pain (for | | | | | | | | pain.). | | | | | | + + + +---------+------+------+-------+ | gabapentin 100 mg | Take 2 capsules by | 180 | 5 | 08/01 | | Activ | | oral capsule | mouth three times | capsule | | 07/20 | | e | | | daily. | | | 16 | | | + + + +---------+------+------+-------+ Active Problems + + + | Problem | Noted Date | + + + | PVNS (pigmented villonodular synovitis) | 08/16/2015 | + + + | Renal cell carcinoma | 03/20/2005 | + + + + + | Overview: Laparoscopic partial nephrectomy performed 03/12/05 | + + Encounters +--------+ + + + + | Date | Type | Specialty | Care Team | Description | +--------+ + + + + | 07/11/ | Telephone | Orthopedics | Suman Gavin, | | | 2020 | | | MD | | +--------+ + + + + from Last 3 Months Family History + + +------+ + | Medical History | Relation | Name | Comments | + + +------+ + | Cancer | Father | | | + + +------+ + | Cancer | Mother | | | + + +------+ + + +------+--------+ + | Relation | Name | Status | Comments | + +------+--------+ + | Father | | | | + +------+--------+ + | Mother | | | | + +------+--------+ + Social History + +-------+ +--------+------+ | [...] recent travel history available. | + + Last Filed Vital Signs + [...] Health Maintenance | Due Date | Last Done | Comments | + + + + + | Pneumococcal | | | | | vaccination (1 of 2 | 9 | | | | - PCV13) | | | | + + + + + | Influenza (Flu) | | | | | vaccination (Season | 0 | | | | Ended) | | | | + + + + + Results Not on filefrom Last 3 Months Insurance + +--------+ +--------+ + +--------+ | Payer | Benefi | Subscriber | Effect | Phone | Address | Type | | | t Plan | ID | yovany | | | | | | / | | Dates | | | | | | Group | | | | | | + +--------+ +--------+ + +--------+ | MEDICARE | MEDICA | xxxxxxxxxx | 08/02/19 | [phone] | [address] | Medica | | | RE A & | | 09-Pre | 1 | [phone] | re | | | B | | sent | | [place] | | | | | | | | [phone] | | + +--------+ +--------+ + +--------+ | [employer] | AARP | xxxxxxxxx | 03/03/19 | [phone] | [address] | Indemn | | RETIRED PEOPLE | | | 15-Pre | 9 | [id number] | ity | | | | | sent | | [place] | | | | | | | | [address] | | + +--------+ +--------+ + +--------+ + +--------+ +--------+ + + | Guarantor Name | Accoun | Relation to | Date | Phone | Billing Address | | | t Type | Patient | of | | | | | | | | | | + +--------+ +--------+ + + | Judi Dennis | Person | Self | [birth year] | [address] | | [place] | al/Fam | | 1946 | [phone] | [place] [address] | | | henry | | | 0 (Home) | | + +--------+ +--------+ + + Advance Directives + + + + + | Type | Date Recorded | Patient | Explanation | | | | Certified Residential Medication Aide | | + + + + + | Advance | 03/12/2005 12:00 | | ADVANCE DIRECTIVE | | Directives and | AM | | | | Living Will | | | | + + + + + + + + + + | Code Status | Date | Date | Comments | | | Activated | Inactivated | | + + + + + | Full Code | 07/06/2015 | 07/07/2015 | | | | 6:20 PM | 5:29 PM | | + + + + +
--- OUTSIDE RECORDS SUMMARY | ~2019-08-30 | XMS | Encounter Summary ---
Demographics + + + | Address | [address] | | | [place] [address] | + + + | Home Phone [...] | Taye Dennis | ECON | [address] | | | | | [place] | | | | | [address] | | + + + + + Care Team Providers + +------+ + | Care Dry Mop Maker Name | Role | Phone | + [...] | | | | | synovitis) | [place], [place] | | | | | | Procedures | [address] | | | | | | MRI KNEE RT | Phone: | | | | | | WWO | [phone] | | | | | | CONTRAST | Fax: | | | | | | | [phone] | | +--------+--------+ + + + + [...] | | | | | (pigmented), | [place] | | | | | right knee | [address] | [address] | | | | | Procedures | Phone: | Phone: | | | | | REQUEST TO | [phone] | [phone] | | | | | SURGERY | Fax: | Fax: | | | | | CONTRACT LEAD | [phone] | [phone] | | | | | DE RMV KNEE | | | | | | | SYNOVIUM,ANT | | | | | | | /POST DE | | | | | | | KNEE | | | | | | | SCOPE,SHAVE | | | | | | | ARTICULAR | | | | | | | CART DE | | | | | | | [...] | | | | [address] | [place], [place] | synovitis) (Primary | | | | Mailcode: [id number] | [address] | Dx) | | | | [facility] | [phone] | | | | | [place], [place] | | | | | | [address] | | | | | | [phone] | | | +--------+---------+ + + + [...]
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
--- OUTSIDE RECORDS SUMMARY | ~2019-08-30 | XMS | Encounter Summary ---
Demographics + + + | Address | [address] | | | [place] [address] | + + + | Home Phone | | + + + | Preferred Language | Unknown | + + + | Marital Status | | + + + | Sabianist Affiliation | CHR | + + + | Race | White | + + + | Ethnic Group | Not or | + + + Author + + + | Author | [facility] | + + + | Organization | [facility] | + + + | Address | Unknown | + + + | Phone | Unavailable | + + + Support + + + + + | Name | Relationship | Address | Phone | + + + + + | Taye Dennis | ECON | [address] | | | | | [place] | | | | | [address] | | + + + + + Care Team Providers + +------+ + | Care Fur Designer Name | Role | Phone | + [...] | | | | lar PVNS, | [facility] | Ave | | | | | benign | & Fractur | [place], [place] | | | | | neoplasm of | [address] | [address] | | | | | connective | [address] | Phone: | | | | | and other | [place], | [phone] | | | | | soft tissue | [place] [address] | Fax: | | | | | of right | Phone: | [phone] | | | | | lower limb, | [phone] | | | | | | including | Fax: | | | | | | hip | [phone] | | +--------+--------+ + + + + [...] | | | | [address] | [place], [place] | synovitis) (Primary | | | | Mailcode: [id number] | [address] | Dx) | | | | [facility] | [phone] | | | | | [place], [place] | | | | | | [address] | | | | | | [phone] | | | +--------+---------+ + + + [...]
--- OUTSIDE RECORDS SUMMARY | ~2019-08-30 | XMS | Encounter Summary ---
Demographics + + + | Address | [address] | | | [place] [address] | + + + | Home Phone | | + + + | Preferred Language | Unknown | + + + | Marital Status | | + + + | Yarsani Affiliation | CHR | + + + | Race | White | + + + | Ethnic Group | Not or | + + + Author + + + | Author | [facility] | + + + | Organization | [facility] | + + + | Address | Unknown | + + + | Phone | Unavailable | + + + Support + + + + + | Name | Relationship | Address | Phone | + + + + + | Taye Dennis | ECON | [address] | | | | | [place] | | | | | [address] | | + + + + + Care Team Providers + +------+ + | Care Concrete Finisher Apprentice Name | Role | Phone | + [...] Pharmacy | | | | | | [address] | | | | | | [place], [place] | | | | | | [address] | | | | | | [phone] | | | +--------+ + + + [...]
--- OUTSIDE RECORDS SUMMARY | ~2019-08-30 | XMS | Encounter Summary ---
Demographics + + + | Address | [address] | | | [place] [address] | + + + | Home Phone | | + + + | Preferred Language | Unknown | + + + | Marital Status | | + + + | Hindu Affiliation | 1041 | + + + | Race | Unknown | + + + | Ethnic Group | Unknown | + + + Author + + + | Author | [facility] | | | and Sameerana | + + + | Organization | [facility] | | | and Sameerana | + [...] [place], [place] | | | | | [address] | | + + + + + | Bayron Dennis | ECON | [address] | | | | | [place], [place] | | | | | [address] | | + + + + + Care Team Providers + +------+ + | Care Dynamicist Name | Role | Phone | + +------+ + PCP | Unavailable | + +------+ + Encounter Details +--------+ + + + + | Date | Type | Department | Care Team | Description | +--------+ + + + + | 10/01/ | Hospital | [facility] | [place], | | | 2006 - | Encounter | [facility] | Raymundo Knox MD [address] | | | | [place] [address] | [place] | | | 10/31/ | | [place], [place] | [place] [address] | | | 2006 | | [address] | [phone] | | | | | [phone] | | | +--------+ + + + [...]
--- OUTSIDE RECORDS SUMMARY | ~2019-08-30 | XMS | Encounter Summary ---
Demographics + + + | Address | [address] | | | [place] [address] | + + + | Home Phone | | + + + | Preferred Language | Unknown | + + + | Marital Status | | + + + | Evangelical Affiliation | 1041 | + + + | Race | Unknown | + + + | Ethnic Group | Unknown | + + + Author + + + | Author | [facility] | | | and Sameerana | + + + | Organization | [facility] | | | and Sameerana | + + + | Address | Unknown | + + + | Phone | Unavailable | + + + Support + + + + + | Name | Relationship | Address | Phone | + + + + + | Bossman eRnee | ECON | [address] | | | | | [place], [place] | | | | | [address] | | + + + + + | Bayron Dennis | ECON | [address] | | | | | [place], [place] | | | | | [address] | | + + + + + Care Team Providers + +------+ + | Care Hip Hop Artist Name | Role | Phone | + +------+ + | Prasanth Perry MD | PCP | | + +------+ + Encounter Details +--------+ + + + + | Date | Type | Department | Care Team | Description | +--------+ + + + + | 12/23/ | Imaging | [facility] | Provider, | | | 2019 | Exam | [facility] | MD [address] | | | | | IMAGING [address] | [address] | | | | | [address] [place] | [place] [address] | | | | | [place] [address] | | | | | | [phone] | | | +--------+ + + + [...] | + +--------+ + + + | MRI KNEE LEFT WO | Routin | 05/16/2017 | | Results for this | | CONTRAST | e | 12:00 AM | | procedure are in the | | | | PDT | | results section. | + +--------+ + + + documented in this encounter Results MRI Knee Left wo Contrast (05/16/2017 12:00 AM PDT) + + | Specimen [...]
--- OUTSIDE RECORDS SUMMARY | ~2019-08-30 | XMS | Encounter Summary ---
Demographics + + + | Address | [address] | | | [place] [address] | + + + | Home Phone | | + + + | Preferred Language | Unknown | + + + | Marital Status | | + + + | Tenriism Affiliation | 1041 | + + + | Race | Unknown | + + + | Ethnic Group | Unknown | + + + Author + + + | Author | [facility] | | | and Sameerana | + + + | Organization | [facility] | | | and Sameerana [...] [place], [place] | | | | | [address] | | + + + + + | Bayron Dennis | ECON | [address] | | | | | [place], [place] | | | | | [address] | | + + + + + Care Team Providers + +------+ + | Care Tumbler Drier Operator Name | Role | Phone | + +------+ + PCP | Unavailable | + +------+ + Encounter Details +--------+ + + + + | Date | Type | Department | Care Team | Description | +--------+ + + + + | 12/22/ | Hospital | [facility] | [place], | | | 2002 - | Encounter | MED CTR CANCER | Raymundo Knox MD [address] | | | | | [place] [address] | [facility] | | | 02/20/ | | [place], [place] | [place] [address] | | | 2002 | | [address] | [phone] | | | | | [phone] | | | +--------+ + + + [...]
--- OUTSIDE RECORDS SUMMARY | ~2019-08-30 | XMS | Encounter Summary ---
Demographics + + + | Address | [address] | | | [place] [address] | + + + | Home Phone | | + + + | Preferred Language | Unknown | + + + | Marital Status | | + + + | Moravian Affiliation | [id number] | + + + | Race | Unknown | + + + | Ethnic Group | Unknown | + + + Author + + + | Author | [facility] | | | and Sameerana | + + + | Organization | [facility] | | | and Sameerana [...] [place], [place] | | | | | [address] | | + + + + + | Bayron Dennis | ECON | [address] | | | | | [place], [place] | | | | | [address] | | + + + + + Care Team Providers + +------+ + | Care Column Precaster Name | Role | Phone | + +------+ + PCP | Unavailable | + +------+ + Encounter Details +--------+ + + + + | Date | Type | Department | Care Team | Description | +--------+ + + + + | 07/01/ | Hospital | [facility] | [facility] | | | 2011 | Encounter | [facility] SLEEP | MD [place] [address] | | | | | [place] [address] | [address] [facility] | | | | | [place], [place] | [place] [address] | | | | | [id number] | [phone] | | | | | [phone] | | | +--------+ + + + [...] documented as of this encounter Miscellaneous Notes Sleep Disorders - Matt Forrester Jr., MD - 07/02/2011 11:55 AM PDTDATE: 07/02/2011 cc: [facility] Sleep Center Matt Forrester Jr., MD, [facility] Prasanth Perry MD RESULTS OF SLEEP DIARY WELL POLYSOMNOGRAM CLINICAL INFORMATION: This is a 65-year-old female referred by Dr. Prasanth Perry because of severe ch ronic insomnia unresponsive to a variety of sedating medications. The patient's past history is notab le for renal cell carcinoma, breast cancer as well as anxiety disorde r. Her bedtime by history is 10 to 11:30 p.m. with rise time at 7:30. She states that she slee ps very li ttle in the course of an evening and sometimes will go all night long without sl eeping. Her h as mentioned to her that she does snore from time to time. She states that she maintains good alertne ss in the daytime. FINDINGS: Prior to the study the patient scored 3 points on the Le[place] Sleepiness Scale, w [facility] does not endorse a significant degree of recognized excessive sleepiness. The patient reported this evenin g to be a usual night's sleep. SLEEP DIARIES: Sleep diaries were kept from 05/14/2011 for 29 days. Sleep diaries showed a bedtime that ranged from 7:30 in the evening until about 11:30. The patient ty pically did not attempt to fall asleep for an hour or so after going to bed. She has an average sleep latency by her estimate of 101 minutes. She estimates that she sleeps on average of 3.14 hours. Time in bed averaged 8.9 hours a night. Her sleep efficiency oleksandr s averaged 35%. She did have several even ings where she reported no sleep at all. SLEEP ARCHITECTURE: Lights out was recorded at 10:38 p.m. Lights on was recorded at 6:19 a. m. The lat ency to sleep onset is prolonged at 34 minutes (less than the 101 minutes she re ports that it takes h er to fall asleep at home.) The patient slept for 337.5 minutes out o f 461 minutes of study time. The sleep efficiency is low at 73.2%. The patient reported thi s to be a usual night's sleep. However, by her own estimate at home, a usual night's sleep consists of 3.14 hours rather than the 5.6 hours she got on the current study. At home she also had averaged 35% sleep efficiency rather and 73.2. The pa ida did estimate that on t he current evening she slept for 3.5 hours, but she actually slept for 5. 6 hours. 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 The amount of N1 sleep is normal at 4.2% of the evening. The amount of N2 sleep is normal a t 33.1% of the evening. The amount of N3 sleep is normal at 21.7% of the evening. The amoun t of rapid eye movem ent sleep was normal at 20% of the evening. The latency to rapid eye m ovement sleep was mildly prolon ged at 161.5 minutes. Sleep was fragmented. The arousal ind ex was 32.5. It should be noted that alpha intrusions were noted in all stages of sleep. This made the s coring of arousals very problematic. Alpha intrusions in the sleep are fairly nonspecific, but they can be seen in a variety of clinical conditions including anxiety disorders, chron ic pain disorders, and other d isorders of "hypervigilant" sleep. CARDIOPULMONARY MONITORING: The heart rate averaged in the 60s and fundamentally was a norm al sinus r hythm. In the course of the evening, there were no apneas. There were 5 hypopnea s. There were 23 resp iratory effort-related arousals. The respiratory disturbance index is borderline at 5.0. The apnea-hy popnea index was normal at 0.9. The respiratory events wer e primarily seen in rapid eye movement slee p. The respiratory events did not directly occa beckie significant sleep fragmentation. The respiratory arousal index was 3.7. LIMB MOVEMENT MONITORING: There were 17 periodic limb movements. The PLMS index is normal a t 3. INTERPRETATION: This is an abnormal nocturnal polysomnogram secondary to 1. The prolonged latency to sleep onset as well as the low sleep efficiency suggests diagnosis generi olman of insomnia. A diagnosis of sleep state misperception syndrome is also strongly suspected in vi ew of the fact that the the patient estimated she slept for 3.5 hours when in fact she slept for 5.6 hours. Additionally, there are significant discrepancy between the amount of sleep she had in the cur rent study, the latency to sleep onset, sleep efficiency when comp ared with her sleep diary. She stat es that this was a usual night's sleep. 2. There really was no convincing evidence to suggest a sleep-related breathing disorder. 3. Alpha intrusions were noted in all stages of sleep. SUGGESTIONS: The study is most consistent with a generic diagnosis of insomnia, and cognit yovany behavi oral therapy is advised. Matt Forrester Jr., MD, FAASM Diplomate [employer] of [employer] Medicine Diplomate in Sleep Medicine [employer] Supervisor, Sonia Cline [facility] Clinical Loan Underwriter [facility] [place] of Medicine, [facility] JOB #: [id number] EXT JOB #:[id number] EDITED: 07/09/2011 12:06 <Electronically Signed by Matt Forrester MD> 07/09/11 1518 documented in this encounter Plan of Treatment Not on filedocumented as of this encounter Visit Diagnoses Not on filedocumented in this encounter
--- OUTSIDE RECORDS SUMMARY | ~2019-08-30 | XMS | Encounter Summary ---
Demographics + + + | Address | [address] | | | [place] [address] | + + + | Home Phone | | + + + | Preferred Language | Unknown | + + + | Marital Status | | + + + | Sabianist Affiliation | CHR | + + + | Race | White | + + + | Ethnic Group | Not or | + + + Author + + + | Author | [facility] | + + + | Organization | [facility] | + + + | Address | Unknown | + + + | Phone | Unavailable | + + + Support + + + + + | Name | Relationship | Address | Phone | + + + + + | Taye Dennis | ECON | [address] | | | | | [place] | | | | | [address] | | + + + + + Care Team Providers + +------+ + | Care Caisson Worker Name | Role | Phone | + +------+ + | Miriam Treadwell | PCP | | + +------+ + Encounter Details +--------+ + + + + | Date | Type | Department | Care Team | Description | +--------+ + + + + | 03/12/ | Hospital | Registration [id number] | [place], | | | 2005 | Activity | [address] | [address] | | | | | Nico Mailcode: [id number] | [place], [place] | | | | | [place], [place] | [address] | | | | | [address] | [phone] | | | | | [phone] | | | +--------+ + + + [...] | BASIC METABOLIC SET | Routin | 03/14/2005 | | Results for this | | (NA, K, CL, TCO2, | e | 6:35 AM | | procedure are in the | | BUN, CR, GLU, CA) | | PST | | results section. | + +--------+ + + + | BASIC METABOLIC SET | Routin | 03/13/2005 | | Results for this | | (NA, K, CL, TCO2, | e | 6:25 AM | | procedure are in the | | BUN, CR, GLU, CA) | | PST | | results section. | + +--------+ + + + | CBC ONLY | Routin | 03/13/2005 | | Results for this | | | e | 6:25 AM | | procedure are in the | | | | PST | | results section. | + +--------+ + + + | PHOSPHORUS, PLASMA | Routin | 03/13/2005 | | Results for this | | | e | 6:25 AM | | procedure are in the | | | | PST | | results section. | + +--------+ + + + | MAGNESIUM, PLASMA | Routin | 03/13/2005 | | Results for this | | | e | 6:25 AM | | procedure are in the | | | | PST | | results section. | + +--------+ + + + | BASIC METABOLIC SET | Urgent | 03/12/2005 | | Results for this | | (NA, K, CL, TCO2, | | 3:00 PM | | procedure are in the | | BUN, CR, GLU, CA) | | PST | | results section. | + +--------+ + + + | CBC ONLY | Urgent | 03/12/2005 | | Results for this | | | | 3:00 PM | | procedure are in the | | | | PST | | results section. | + +--------+ + + + | PHOSPHORUS, PLASMA | Urgent | 03/12/2005 | | Results for this | | | | 3:00 PM | | procedure are in the | | | | PST | | results section. | + +--------+ + + + | MAGNESIUM, PLASMA | Urgent | 03/12/2005 | | Results for this | | | | 3:00 PM | | procedure are in the | | | | PST | | results section. | + +--------+ + + + | SURGICAL PATHOLOGY | Routin | 03/12/2005 | | Results for this | | | e | | | procedure are in the | | | | | | results section. | + +--------+ + + + documented in this encounter Results BASIC METABOLIC SET (03/14/2005 6:35 AM PST) + +---------+ + + + | Component | Value | Ref Range | Performed | Pathologist | | | | | At | Signature | + +---------+ + + + | GLUCOSE, | 108 | 65 - 110 mg/dL | [facility] | | | PLASMA | | | DEPARTMENT | | | (LAB) | | | OF | | | | | | PATHOLOGY | | + +---------+ + + + | BUN, PLASMA | 11 | 6 - 20 mg/dL | [facility] | | | (LAB) | | | DEPARTMENT | | | | | | OF | | | | | | PATHOLOGY | | + +---------+ + + + | CREATININE | 1.2 (H) | 0.6 - 1.1 mg/dL | [facility] | | | PLASMA | | | DEPARTMENT | | | (LAB) | | | OF | | | | | | PATHOLOGY | | + +---------+ + + + | SODIUM, | 139 | 136 - 145 | [facility] | | | PLASMA | | mmol/L | DEPARTMENT | | | (LAB) | | | OF | | | | | | PATHOLOGY | | + +---------+ + + + | POTASSIUM, | 3.7 | 3.5 - 5.1 | [facility] | | | PLASMA | | mmol/L | DEPARTMENT | | | (LAB) | | | OF | | | | | | PATHOLOGY | | + +---------+ + + + | CHLORIDE, | 107 | 98 - 107 mmol/L | [facility] | | | PLASMA | | | DEPARTMENT | | | (LAB) | | | OF | | | | | | PATHOLOGY | | + +---------+ + + + | TOTAL CO2, | 27 | 23 - 29 mmol/L | [facility] | | | PLASMA | | | DEPARTMENT | | | (LAB) | | | OF | | | | | | PATHOLOGY | | + +---------+ + + + | CALCIUM, | 8.6 | 8.5 - 10.5 | [facility] | | | PLASMA | | mg/dL | DEPARTMENT | | | (LAB) | | | OF | | | | | | PATHOLOGY | | + +---------+ + + + + + | Specimen | + + | | + + + + + + + | Performing | Address | City/State/Zipcode | Phone Number | | Organization | | | | + + + + + | [facility] | [address] | [place] [address] | | | PATHOLOGY | [address] | | | + + + + + | [facility] | [facility] | [place] [address] | | | PATHOLOGY | [address] | | | + + + + + PHOSPHORUS, PLASMA (03/13/2005 6:25 AM PST) + +-------+ + + + | Component | Value | Ref Range | Performed | Pathologist | | | | | At | Signature | + +-------+ + + + | PHOSPHORUS, | 4.0 | 2.4 - 4.7 mg/dL | [facility] | | | PLASMA [...] + | [facility] DEPARTMENT OF | [address] | [place] [address] | | | PATHOLOGY | [address] | | | + + + + + | [facility] | [address] | [place] [address] | | | PATHOLOGY | [address] | | | + + + + + MAGNESIUM, PLASMA (03/13/2005 6:25 AM PST) + +-------+ + + + | Component | Value | Ref Range | Performed | Pathologist | | | | | At | Signature | + +-------+ + + + | MAGNESIUM,P | 2.2 | 1.8 - 2.5 mg/dL | [facility] | | | LASMA | | | DEPARTMENT | | | | | | OF | | | | | | PATHOLOGY | | + +-------+ + + + + + | Specimen | + + | | + + + + + + + | Performing | Address | City/State/Zipcode | Phone Number | | Organization | | | | + + + + + | [facility] | [address] | [place] [address] | | | PATHOLOGY | [address] | | | + + + + + | [facility] | [address] | [place] [address] | | | PATHOLOGY | [address] | | | + + + + + CBC ONLY WITH PLATELET (03/13/2005 6:25 AM PST) + + + + + + | Component | Value | Ref Range | Performed | Pathologist | | | | | At | Signature | + + + + + + | WHITE CELL | 12.2 (H) | 4.4 - 11.0 K/cu | [facility] | | | COUNT | | mm | DEPARTMENT | | | | | | OF | | | | | | PATHOLOGY | | + + + + + + | RED CELL | 3.86 (L) | 4.00 - 5.20 | [facility] | | | COUNT | | M/cu mm | DEPARTMENT | | | | | | OF | | | | | | PATHOLOGY | | + + + + + + | HEMOGLOBIN | 11.6 (L) | 12.0 - 16.0 | [facility] | | | | | g/dL | DEPARTMENT | | | | | | OF | | | | | | PATHOLOGY | | + + + + + + | HEMATOCRIT | 33.6 (L) | 36.0 - 46.0 % | [facility] | | | | | | DEPARTMENT | | | | | | OF | | | | | | PATHOLOGY | | + + + + + + | MCV | 86.9 | 80.0 - 96.0 fL | [facility] | | | | | | DEPARTMENT | | | | | | OF | | | | | | PATHOLOGY | | + + + + + + | MCHC | 34.5 | 33.4 - 35.5 | [facility] | | | | | g/dL | DEPARTMENT | | | | | | OF | | | | | | PATHOLOGY | | + + + + + + | RDW | 12.4 | 11.5 - 15.0 % | [facility] | | | | | | DEPARTMENT | | | | | | OF | | | | | | PATHOLOGY | | + + + + + + | PLATELET | 152 | 150 - 400 K/cu | [facility] | | | COUNT | | mm | DEPARTMENT | | | | | | OF | | | | | | PATHOLOGY | | + + + + + + + + | Specimen | + + | | + + + + + + + | Performing | Address | City/State/Zipcode | Phone Number | | Organization | | | | + + + + + | [facility] | [address] | [place] [address] | | | PATHOLOGY | [address] | | | + + + + + | [facility] | [address] | [place] [address] | | | PATHOLOGY | [address] | | | + + + + + BASIC METABOLIC SET (03/13/2005 6:25 AM PST) + +---------+ + + + | Component | Value | Ref Range | Performed | Pathologist | | | | | At | Signature | + +---------+ + + + | GLUCOSE, | 153 (H) | 65 - 110 mg/dL | [facility] | | | PLASMA | | | DEPARTMENT | | | (LAB) | | | OF | | | | | | PATHOLOGY | | + +---------+ + + + | BUN, PLASMA | 11 | 6 - 20 mg/dL | [facility] | | | (LAB) | | | DEPARTMENT | | | | | | OF | | | | | | PATHOLOGY | | + +---------+ + + + | CREATININE | 1.2 (H) | 0.6 - 1.1 mg/dL | [facility] | | | PLASMA | | | DEPARTMENT | | | (LAB) | | | OF | | | | | | PATHOLOGY | | + +---------+ + + + | SODIUM, | 140 | 136 - 145 | [facility] | | | PLASMA | | mmol/L | DEPARTMENT | | | (LAB) | | | OF | | | | | | PATHOLOGY | | + +---------+ + + + | POTASSIUM, | 4.0 | 3.5 - 5.1 | [facility] | | | PLASMA | | mmol/L | DEPARTMENT | | | (LAB) | | | OF | | | | | | PATHOLOGY | | + +---------+ + + + | CHLORIDE, | 108 (H) | 98 - 107 mmol/L | [facility] | | | PLASMA | | | DEPARTMENT | | | (LAB) | | | OF | | | | | | PATHOLOGY | | + +---------+ + + + | TOTAL CO2, | 25 | 23 - 29 mmol/L | [facility] | | | PLASMA | | | DEPARTMENT | | | (LAB) | | | OF | | | | | | PATHOLOGY | | + +---------+ + + + | CALCIUM, | 8.4 (L) | 8.5 - 10.5 | [facility] | | | PLASMA | | mg/dL | DEPARTMENT | | | (LAB) | | | OF | | | | | | PATHOLOGY | | + +---------+ + + + + + | Specimen | + + | | + + + + + + + | Performing | Address | City/State/Zipcode | Phone Number | | Organization | | | | + + + + + | [facility] DE[facility]MENT [facility] | [address] | [place] [address] | | | PATHOLOGY | [address] | | | + + + + + | [facility] | [address] | [place] [address] | | | PATHOLOGY | [address] | | | + + + + + MAGNESIUM, PLASMA (03/12/2005 3:00 PM PST) + +-------+ + + + | Component | Value | Ref Range | Performed | Pathologist | | | | | At | Signature | + +-------+ + + + | MAGNESIUM,P | 1.9 | 1.8 - 2.5 mg/dL | [facility] | | | LASMA | | | DEPARTMENT | | | | | | OF | | | | | | PATHOLOGY | | + +-------+ + + + + + | Specimen | + + | | + + + + + + + | Performing | Address | City/State/Zipcode | Phone Number | | Organization | | | | + + + + + | [facility] | [address] | [place] [address] | | | PATHOLOGY | [address] | | | + + + + + | [facility] | [address] | [place] [address] | | | PATHOLOGY | [address] | | | + + + + + PHOSPHORUS, PLASMA (03/12/2005 3:00 PM PST) + +-------+ + + + | Component | Value | Ref Range | Performed | Pathologist | | | | | At | Signature | + +-------+ + + + | PHOSPHORUS, | 4.2 | 2.4 - 4.7 mg/dL | [facility] | | | PLASMA [...] DEPARTMENT OF | [address] | [place] [address] | | | PATHOLOGY | [address] | | | + + + + + | [facility] DEPARTMENT OF | [address] | [place] [address] | | | PATHOLOGY | [address] | | | + + + + + CBC ONLY WITH PLATELET (03/12/2005 3:00 PM PST) + + + + + + | Component | Value | Ref Range | Performed | Pathologist | | | | | At | Signature | + + + + + + | WHITE CELL | 9.8 | 4.4 - 11.0 K/cu | [facility] | | | COUNT | | mm | DEPARTMENT | | | | | | OF | | | | | | PATHOLOGY | | + + + + + + | RED CELL | 4.09 | 4.00 - 5.20 | [facility] | | | COUNT | | M/cu mm | DEPARTMENT | | | | | | OF | | | | | | PATHOLOGY | | + + + + + + | HEMOGLOBIN | 12.1 | 12.0 - 16.0 | [facility] | | | | | g/dL | DEPARTMENT | | | | | | OF | | | | | | PATHOLOGY | | + + + + + + | HEMATOCRIT | 34.9 (L) | 36.0 - 46.0 % | [facility] | | | | | | DEPARTMENT | | | | | | OF | | | | | | PATHOLOGY | | + + + + + + | MCV | 85.3 | 80.0 - 96.0 fL | [facility] | | | | | | DEPARTMENT | | | | | | OF | | | | | | PATHOLOGY | | + + + + + + | MCHC | 34.5 | 33.4 - 35.5 | [facility] | | | | | g/dL | DEPARTMENT | | | | | | OF | | | | | | PATHOLOGY | | + + + + + + | RDW | 12.1 | 11.5 - 15.0 % | [facility] | | | | | | DEPARTMENT | | | | | | OF | | | | | | PATHOLOGY | | + + + + + + | PLATELET | 158 | 150 - 400 K/cu | [facility] | | | COUNT | | mm | DEPARTMENT | | | | | | OF | | | | | | PATHOLOGY | | + + + + + + + + | Specimen | + + | | + + + + + + + | Performing | Address | City/State/Zipcode | Phone Number | | Organization | | | | + + + + + | [facility] | [address] | [place] [address] | | | PATHOLOGY | [address] | | | + + + + + | [facility] | [address] | [place] [address] | | | PATHOLOGY | [address] | | | + + + + + BASIC METABOLIC SET (03/12/2005 3:00 PM PST) + +---------+ + + + | Component | Value | Ref Range | Performed | Pathologist | | | | | At | Signature | + +---------+ + + + | GLUCOSE, | 154 (H) | 65 - 110 mg/dL | [facility] | | | PLASMA | | | DEPARTMENT | | | (LAB) | | | OF | | | | | | PATHOLOGY | | + +---------+ + + + | BUN, PLASMA | 12 | 6 - 20 mg/dL | [facility] | | | (LAB) | | | DEPARTMENT | | | | | | OF | | | | | | PATHOLOGY | | + +---------+ + + + | CREATININE | 0.9 | 0.6 - 1.1 mg/dL | [facility] | | | PLASMA | | | DEPARTMENT | | | (LAB) | | | OF | | | | | | PATHOLOGY | | + +---------+ + + + | SODIUM, | 139 | 136 - 145 | [facility] | | | PLASMA | | mmol/L | DEPARTMENT | | | (LAB) | | | OF | | | | | | PATHOLOGY | | + +---------+ + + + | POTASSIUM, | 3.5 | 3.5 - 5.1 | [facility] | | | PLASMA | | mmol/L | DEPARTMENT | | | (LAB) | | | OF | | | | | | PATHOLOGY | | + +---------+ + + + | CHLORIDE, | 109 (H) | 98 - 107 mmol/L | [facility] | | | PLASMA | | | DEPARTMENT | | | (LAB) | | | OF | | | | | | PATHOLOGY | | + +---------+ + + + | TOTAL CO2, | 24 | 23 - 29 mmol/L | [facility] | | | PLASMA | | | DEPARTMENT | | | (LAB) | | | OF | | | | | | PATHOLOGY | | + +---------+ + + + | CALCIUM, | 8.8 | 8.5 - 10.5 | [facility] | | | PLASMA | | mg/dL | DEPARTMENT | | | (LAB) | | | OF | | | | | | PATHOLOGY | | + +---------+ + + + + + | Specimen | + + | | + + + + + + + | Performing | Address | City/State/Zipcode | Phone Number | | Organization | | | | + + + + + | [facility] | [address] | [place] [address] | | | PATHOLOGY | [address] | | | + + + + + | [facility] | [address] | [place] [address] | | | PATHOLOGY | [address] | | | + + + + + SURGICAL PATHOLOGY (03/12/2005) + + + + + + | Component | Value | Ref Range | Performed | Pathologist | | | | | At | Signature | + + + + + + | SURGICAL | SOURCE OF SPECIMEN:A | | [facility] | | | PATHOLOGY | Right lobe liver | | DEPARTMENT | | | | lesion-FSSOURCE OF | | OF | | | | SPECIMEN:B Fat | | PATHOLOGY | | | | superficial to | | | | | | tumorSOURCE OF | | | | | | SPECIMEN:C Right renal | | | | | | tumor Final Pathologic | | | | | | Diagnosis:A: Liver, | | | | | | right lobe, lesion, | | | | | | biopsy: - Segment | | | | | | of nodular liver with | | | | | | fibrous bands consistent | | | | | | with 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 B: Adipose | | | | | | tissue, superficial to | | | | | | tumor, excision: - | | | | | | Fibroadipose tissue | | | | | | with no diagnostic | | | | | | abnormality C: Tumor, | | | | | | right renal upper pole, | | | | | | resection: - 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, 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, 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 | | | | | | - 1.8 cm in greatest | | | | | | dimension - No | | | | | | angiolymphatic or | | | | | | perineural invasion | | | | | | identified - | | | | | | Surgical margins | | | | | | negative for malignancy, | | | | | | nearest surgical margin | | | | | | is0.2 cm - | | | | | | 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 Frozen | | | | | | Section Diagnosis:Right | | | | | | lobe liver lesion | | | | | | (specimen A): - | | | | | | Benign nodular liver, | | | | | | diagnostic possibilities | | | | | | include focal | | | | | | nodularhyperplasia | | | | | | Confirmed by: Honey | | | | | | Kwame Keith and | | | | | | Latisha Garay M.D. / | | | | | | Pathologist Clinical | | | | | | History:The patient is a | | | | | | 59-year-old female with | | | | | | complex right renal | | | | | | mass. Gross | | | | | | Description:Three | | | | | | specimens are received | | | | | | fresh. A: Right lobe | | | | | | liver lesion, FS: | | | | | | Received on Telfa is | | | | | | one irregularfragment of | | | | | | firm, blackman-red tissue | | | | | | that measures 1.0 x 1.0 | | | | | | x 0.3 cm. Thespecimen | | | | | | is entirely submitted | | | | | | for frozen section and | | | | | | resubmitted in toto. B: | | | | | | Fat, superficial to | | | | | | tumor: Received in a | | | | | | plastic bag is one | | | | | | irregularfragment of | | | | | | soft, blackman-red tissue | | | | | | with attached | | | | | | yellow-red, lobular fat | | | | | | thatmeasures 4.5 x 2.0 x | | | | | | 0.6 cm. There are no | | | | | | areas of induration | | | | | | onpalpation. The | | | | | | specimen is serially | | | | | | sectioned. | | | | | | [employer] | | | | | | sectionsare submitted. | | | | | | C: Right renal tumor: | | | | | | Received weighing 10.0 | | | | | | grams is an irregular, | | | | | | firm,rubbery, mottled | | | | | | blackman-red tissue that | | | | | | measures 3.8 x 2.8 x 2.5 | | | | | | cm with amottled | | | | | | blackman-dusky purple nodule | | | | | | centrally located that | | | | | | measures 1.8 cm | | | | | | indiameter. The | | | | | | surface with the nodule | | | | | | exposed is smooth. | | | | | | Surgical marginis | | | | | | inked black, and the | | | | | | specimen is serially | | | | | | sectioned to reveal a | | | | | | blackman-red,homogeneous cut | | | | | | surface with a | | | | | | unilocular cystic area | | | | | | filled with red fluidin | | | | | | a congealed dark red | | | | | | tissue within the nodule | | | | | | measuring 1.5 cm | | | | | | indiameter extending to | | | | | | within 0.1 cm of the | | | | | | deep margin. The | | | | | | entirespecimen is | | | | | | submitted. Cassette | | | | | | Index:A: Right lobe | | | | | | liver lesion, FS:A1, | | | | | | frozen section residueB: | | | | | | Fat, superficial to | | | | | | tumor:B1C: Right renal | | | | | | | | | | | | tumor:[id number]:ES:labRende | | | | | | ring Diagnostician: | | | | | | Latisha Garay | | | | | | M.D.PathologistElectroni | | | | | | olman Signed 03/15/2005 | | | | + + + + + + + + | Specimen | + + | | + + + + + + + | Performing | Address | City/State/Zipcode | Phone Number | | Organization | | | | + + + + + | [facility] | [address] | [place] [address] | | | PATHOLOGY | [address] | | | + + + + + | [facility] | [address] | [place] [address] | | | PATHOLOGY | [address] | | | + + + + + documented in this encounter Visit Diagnoses Not on filedocumented in this encounter"
--- OUTSIDE RECORDS SUMMARY | ~2019-08-30 | XMS | Encounter Summary ---
Demographics + + + | Address | [address] | | | [place] [address] | + + + | Home Phone [...] Taye Dennis | ECON | [address] | | | | | [place] | | | | | [address] | | + + + + + Care Team Providers + +------+ + | Care Aircraft Magneto Mechanic Name | Role | Phone | + +------+ + PCP | Unavailable | + +------+ + Encounter Details +--------+ + + + + | Date | Type | Department | Care Team | Description | +--------+ + + + + | 03/12/ | Procedure - | | Record, Operation | Operative Report | | 2006 | | | | | | | Transcribed | | | | +--------+ + + [...] + + | OPERATION RECORD | | 03/12/2005 | | Results for this | | | | | | procedure are in the | | | | | | results section. | + +--------+ + + + | OPERATION RECORD | | 03/12/2005 | | Results for this | | | | | | procedure are in the | | | | | | results section. | + +--------+ + + + documented in this encounter Results OPERATION RECORD (03/12/2005) + + | Transcriptions | + + | Interface, Pig Casting Machine Operator In - 03/26/2005 2:15 AM PST | | [id number] | | [id number] [facility] JUDI Clemons | | | | Date: 03/12/2005 | | | | Attending Surgeons: Dallas Lloyd M.D. | | Juliocesar Bates M.D. | | | | Undergraduate Intern(s): Dima Haley M.D. | | | | Preoperative Diagnosis(es): | | Right renal tumor. | | | | Postoperative Diagnosis(es): | | Right renal tumor. | | | | Procedures Performed: | | 1. Laparoscopic right partial nephrectomy. | | 2. Laparoscopic biopsy of the liver mass. | | | | Findings: | | There was a liver mass also found which was approximately 2 cm in size and | | was biopsied by Dr. Juliocesar Bates. Frozen section analysis revealed this | | to be benign. We then proceeded with a laparoscopic partial nephrectomy | | and the tumor was excised without difficulty. | | | | Indications: | | This patient is a 59-year-old woman who was found recently to have a right | | renal mass no CT scan. She is here today for removal of this mass. | | | | Procedure: | | Following informed consent, the patient was properly identified and brought | | to the operating room. After the induction of general anesthesia, the | | patient was placed in the left lateral decubitus position with the right | | side elevated approximately 45 degrees. All extremities were padded | | appropriately. The table was partially flexed. The patient was then | | sterilely prepped and draped in the standard fashion for a laparoscopic | | procedure. A small skin incision was made in the periumbilical region | | measuring approximately 2 cm and this was carried down through the | | subcutaneous tissues using electrocautery. The balloon trocar was then | | introduced into this incision and the abdomen insufflated under direct | | vision. The right lower quadrant and right upper quadrant ports were | | placed at the lateral border of the rectus and a subxiphoid 5-mm trocar as | | well as a lateral subcostal 5-mm trocar were also placed under direct | | vision. The right colon was then reflected off the retroperitoneal | | structures. The liver was retracted using a locking grasper through the | | subxiphoid trocar. The vena cava, gonadal vein, and ureter were identified | | and further dissection was carried out to the renal hilum where the renal | | artery and the renal vein were completely freed from surrounding | | structures. The liver lesion was noted and a laparoscopic wedge excision | | of this by Dr. Bates was performed. This was done using the Harmonic | | scalpel. The results of this showed benign nodular hyperplasia of the | | liver. We then proceeded with partial nephrectomy. The renal artery was | | clamped, and the tumor was completely excised using cold Endo Dinora. | | Several 3-0 Polysorb sutures were used to place jpybbw-xg-ltsbd closure of | | several vessels and renal sinus structures. A small amount of BioGlue was | | injected onto the renal parenchyma. Surgicel bolsters were then placed in | | the defect, and a 0 chromic suture was used to perform the renorrhaphy to | | close the defect. A small amount of BioGlue was then injected over the | | closure and the clamps removed. There was no significant bleeding from the | | kidney following this. Perinephric fat and Gerota's fascia were | | reapproximated over the defect using 3-0 Polysorb suture. The liver was | | then allowed to fall back down into its normal position. A 7-mm BELLE drain | | was brought out through the lateral port site and laid to rest in the right | | pericolic gutter. All trocars were removed under direct vision. The | | periumbilical trocar site was closed using running 0 Polysorb suture. The | | abdomen had been thoroughly desufflated prior to this. The patient was | | awakened in the operating room and transported to the recovery room having | | tolerated the procedure well. | | | | | | | | | | Dallas Lloyd M.D. | | | | | | | | | | Juliocesar Bates M.D. | | Professor Event Coordinator | | Department of Surgery | | [id number] | | / | | | | / | | [id number] / [id number] / [id number] / | | | | | | E: 03/15/2005 cmw | | | | cc: | | | | | | Lizeth Garrison M.D. | | [address], [address] | | [place] [address] | | | | Electronically signed by Dallas Lloyd 03-23-2005 09:08:20 AM | + + OPERATION RECORD (03/12/2005) + + | Transcriptions | + + | Interface, Pig Casting Machine Operator In - 03/20/2005 2:23 AM PST | | [id number] | | [id number] BOYD Clemons | | | | Date: 03/12/2005 | | | | Attending Surgeon: Juliocesar Bates M.D. | | | | Undergraduate Intern(s): Dima Haley M.D. | | Dallas Lloyd M.D. | | | | Preoperative Diagnosis(es): | | Possible malignant liver lesion. | | | | Postoperative Diagnosis(es): | | Benign liver lesion. | | | | Procedures Performed: | | Exploratory laparoscopy and laparoscopic liver biopsy. | | | | Anesthesia: | | | | Complications: | | | | Specimens: | | | | Indications: | | Ms. Dennis was undergoing exploration for a right partial nephrectomy when | | a lesion in segment 7 was identified by the operating urologist, | | Prema. This had characteristics concerning for malignancy, and therefore | | since the presence of malignancy would significantly change his operative | | conduct, we elected to proceed with liver biopsy prior to any other part of | | the procedure. While I was beginning this portion of the procedure, | | Prema broke scrub temporarily to go up and discuss the change in operative | | plan with the patient's family. | | | | Procedure: | | Using the already established laparoscopic port and pneumoperitoneum, I | | evaluated the mass in segment 7 of the right lobe. This mass was | | approximately 4 cm to 5 cm in diameter across both dimensions. It was | | multinodular and not hypervascular, but had a more fibrotic appearance to | | it. We next scoured the liver capsule surrounding this lesion, and using | | the SonoSurg, meticulously performed an incisional biopsy to avoid heat | | artefact for the frozen section thought to obtain hemostasis. Following | | this, the frozen section was passed off the field. The biopsy site was | | clean and dry, and I felt there was no further need for hemostasis. The | | remaining of the portion looked normal grossly. I did not have an | | ultrasound probe for my disposal at this portion of the case, and therefore | | could not ultrasonographically fully evaluate the liver parenchyma. 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 Given this | | benign diagnosis, I made the operative decision not to proceed further with | | segmental resection. During this portion of the case, the patient lost | | under 10 cc of blood. At the termination of the case, Dr. Lloyd and | | Sudha resumed their previously planned operative conduct. | | | | | | | | | | Juliocesar Bates M.D. | | Professor Vice-Supervisor Blood Donor Recruiters of Surgery | | [facility] | | Pancreatic/Hepatobiliary Working Group | | | | [facility] / HS | | [id number] / [id number] / [phone] / [phone] | | | | | | | | | | Electronically signed by Juliocesar Bates 03-17-2005 07:10:04 PM | + + documented in this encounter Visit Diagnoses Not on filedocumented in this encounter"
--- OUTSIDE RECORDS SUMMARY | ~2019-08-30 | XMS | Encounter Summary ---
Demographics + + + | Address | [address] | | | [place] [address] | + + + | Home Phone | | + + + | Preferred Language | Unknown | + + + | Marital Status | | + + + | Shinto Affiliation | CHR | + + + | Race | White | + + + | Ethnic Group | Not or | + + + Author + + + | Author | [facility] | + + + | Organization | [facility] | + + + | Address | Unknown | + + + | Phone | Unavailable | + + + Support + + + + + | Name | Relationship | Address | Phone | + + + + + | Taye Dennis | ECON | [address] | | | | | [place] | | | | | [address] | | + + + + + Care Team Providers + +------+ + | Care Union Contract Representative Name | Role | Phone | + [...] | | | Loop Mailcode: [id number] | [place], [place] | | | | | Physician's | [address] | | | | | Rafy Gonzales [address] | [phone] | | | | | [facility] [place] | | | | | | [address] | | | | | | [phone] | | | +--------+ + + + [...]
--- OUTSIDE RECORDS SUMMARY | ~2019-08-30 | XMS | Encounter Summary ---
Demographics + + + | Address | [address] | | | [place] [address] | + + + | Home Phone | | + + + | Preferred Language | Unknown | + + + | Marital Status | | + + + | Latter Day Affiliation | 1041 | + + + | Race | Unknown | + + + | Ethnic Group | Unknown | + + + Author + + + | Author | [facility] | | | and Sameerana | + + + | Organization | [facility] | | | and [...] [place], [place] | | | | | [address] | | + + + + + | Bayron Dennis | ECON | [address] | | | | | [place], [place] | | | | | [address] | | + + + + + Care Team Providers + +------+ + | Care Turkish Line Attendant Name | Role | Phone | + +------+ + | Prasanth Perry MD | PCP | | + +------+ + Encounter Details +--------+ + + + + | Date | Type | Department | Care Team | Description | +--------+ + + + + | 05/28/ | Hospital | [facility] | [facility], | LLQ abdominal pain; | | 2012 - | Encounter | [facility] | [address] | Hx of diverticulitis | | | | [address] [place] | [address] | of colon | | 05/30/ | | [place], [place] | [place], [place] | | | 2012 | | [address] | [address] | | | | | [phone] | | | +--------+ + + + [...] + + + +---------+ + + | calcium | Take by mouth 2 | | 0 | 11/13/19 | | | citrate-vitamin D | times daily. | | | 12 | | | (CITRACAL MAXIMUM) | | | | | | | 315-250 MG-UNIT TABS | | | | | | + + + +---------+ + + | cholecalciferol | Take 1,000 Units by | | 0 | 11/13/19 | | | ([facility] VITAMIN D3) | mouth 2 times daily. | | | 12 | | | 1000 UNITS CAPS | | | | | | + + + +---------+ + + | Cyanocobalamin | Take 1,000 mcg by | | 0 | 11/13/19 | | | (B-12 TR) 1000 MCG | mouth Daily. | | | 12 | | | TBCR | | | | | | + + + +---------+ + + | omeprazole | Take 40 mg by mouth | | 0 | 11/13/19 | | | (PRILOSEC) 40 MG | Daily. | | | 12 | | | capsule | | | | | | + + + +---------+ + + | zolpidem (AMBIEN) | Take 1 tablet by | 30 | 3 | 12/17/19 | | | 10 mg tablet | mouth nightly as | tablet | | 12 | | | | needed. | | | | | + + + +---------+ + + | Aromatic Inhalants | Inhale 1 Application | | 0 | | | | (AYR) INHA | into the lungs as | | | | 9 | | | needed. | | | | | + + + +---------+ + + | ciprofloxacin | Take 1 tablet by | 20 | 0 | 05/29/19 | | | (CIPRO) 500 mg | mouth 2 times daily | tablet | | 13 | 3 | | tablet | for 10 days. | | | | | + + + +---------+ + + | metroNIDAZOLE | Take 1 tablet by | 30 | 0 | 05/29/19 | | | (FLAGYL) 500 MG | mouth 3 times daily | tablet | | 13 | 3 | | tablet | for 10 days. | | | | | + + + +---------+ + + | [place]-3 Fatty | Take 1,200 mg by | | 0 | 11/13/19 | | | Acids (OMEGA-3 FISH | mouth Daily. | | | 12 | 9 | | OIL) 1200 MG CAPS | | | | | | + + + +---------+ + + | simvastatin | Take 40 mg by mouth | | 0 | 11/13/19 | | | (ZOCOR) 40 mg tablet | Daily. | | | 12 | 9 | + + + +---------+ + + documented as of this encounter Plan of Treatment Not on filedocumented as of this encounter Procedures + +--------+ + + + | Procedure Name | Priori | Date/Time | Associated Diagnosis | Comments | | | ty | | | | + +--------+ + + + | SEDIMENTATION RATE | Routin | 05/28/2012 | LLQ abdominal pain | Results for this | | | e | 11:08 AM | Hx of | procedure are in the | | | | PDT | diverticulitis of | results section. | | | | | colon | | + +--------+ + + + | CBC WITH | Routin | 05/28/2012 | LLQ abdominal pain | Results for this | | DIFFERENTIAL | e | 11:08 AM | Hx of | procedure are in the | | | | PDT | diverticulitis of | results section. | | | | | colon | | + +--------+ + + + | C-REACTIVE PROTEIN, | Routin | 05/28/2012 | LLQ abdominal pain | Results for this | | HIGH SENSITIVITY | e | 11:08 AM | Hx of | procedure are in the | | | | PDT | diverticulitis of | results section. | | | | | colon | | + +--------+ + + + documented in this encounter Results C-Reactive Protein, High Sensitivity [...] At | + + + | | [facility] | | | [facility] | | | [facility] | | | - LABORATORY | + + + + + + + + | Performing | Address | City/State/Zipcode | Phone Number | | Organization | | | | + + + + + | [facility] | [address] | [place], [place] | [phone] | | [facility] | | [address] | | | - LABORATORY | | | | + + + + + | [facility] | [address] | [place], [place] | | | [facility] | | [address] [place] [address] | | | - LABORATORY | | [...] | | [facility] | | | Sedimentati | | | [...] + | [facility] | [address] | [place] | [phone] | | [facility] | | [address] | | | - LABORATORY | | | | + + + + + | [facility] | [address] | [place] | | | [facility] | | [id number] | | | [...] | | | | | M/uL | [facility] | | | | | | MEDICAL | | | | | | CENTER - | | | | | | LABORATORY | | + +-------+ + + + | Hemoglobin | 14.7 | 11.5 - 16.0 | [facility] | | | | | gm/dL | [facility] | | | | [...] | | | | | g/dL | [facility] | | | | [...] | | | Neutrophils | | | . [facility] | | | | | | [...] + | [facility] | [address] | [place] | [phone] | | [facility] | | [address] | | | - LABORATORY | | | | + + + + + | [facility] | [address] | [place], [place] | | | [facility] | | [address] | | | - LABORATORY | | | | + + + + + documented in this encounter Visit Diagnoses + + | Diagnosis | + + | LLQ abdominal pain Abdominal pain, left lower quadrant | + + | Hx of diverticulitis of colon Personal history of other diseases of digestive system | + + documented in this encounter"
--- OUTSIDE RECORDS SUMMARY | ~2019-08-30 | XMS | Encounter Summary ---
Demographics + + + | Address | [address] | | | [place] [address] | + + + | Home Phone | | + + + | Preferred Language | Unknown | + + + | Marital Status | | + + + | Anabaptism Affiliation | CHR | + + + [...] | Taye Dennis | ECON | [address] | | | | | [place] | | | | | [address] | | + + + + + Care Team Providers + +------+ + | Care Deputy Director Of Nursing Name | Role | Phone | + [...] | Transcriptions | + + | Interface, Fruit Worker In - 03/26/2005 2:15 AM PST | | [id number] | | [id number] [facility] JUDI Clemons | | | | Date: 03/12/2005 | | | | Attending Surgeons: Dallas Lloyd M.D. | | Juliocesar Bates M.D. | | | | Rattling Machine Tender(s): Dima Halye M.D. | | | | Preoperative Diagnosis(es): [...] 3-0 Polysorb sutures were used to place dtzcaz-oc-xymjq closure of | | several vessels and [...] | Juliocesar Bates M.D. | | Professor Automobile Contract Clerk | | Department of Surgery | | [id number] | | / | | | | / | | [id number] / [id number] / [id number] / | | | | | | E: 03/15/2005 cmw | | | | cc: | | | | | | Lizeth Garrison M.D. | | [address], [address] | | [place] [address] | | | | Electronically signed by Dallas Lloyd 03-23-2005 09:08:20 AM | + + OPERATION RECORD (03/12/2005) + + | Transcriptions | + + | Interface, Fruit Worker In - 03/20/2005 2:23 AM PST | | [id number] | | [id number] BOYD Clemons | | | | Date: 03/12/2005 | | | | Attending Surgeon: Juliocesar Bates M.D. | | | | Rattling Machine Tender(s): Dima Haley M.D. | | Dallas Lloyd [...] | Juliocesar Bates M.D. | | Professor Vice-Operations Research Manager of Surgery | | [facility] | | Pancreatic/Hepatobiliary Working Group | | | | [facility] / HS | | [phone] / [id number] / [phone] / [phone] | | | | | | | | | | Electronically signed by Juliocesar Bates 03-17-2005 07:10:04 PM | + + documented in this encounter Visit Diagnoses Not on filedocumented in this encounter"
--- OUTSIDE RECORDS SUMMARY | ~2019-08-30 | XMS | Encounter Summary ---
Demographics + + + | Address | [address] | | | [place] [address] | + + + | Home Phone | | + + + | Preferred Language | Unknown | + + + | Marital Status | | + + + | Scientology Affiliation | CHR | + + + | Race | White | + + + | Ethnic Group | Not or | + + + Author + + + | Author | [facility] | + + + | Organization | [facility] | + + + | Address | Unknown | + + + | Phone | Unavailable | + + + Support + + + + + | Name | Relationship | Address | Phone | + + + + + | Taye Dennis | ECON | [address] | | | | | [place] | | | | | [address] | | + + + + + Care Team Providers + +------+ + | Care Mixing Plant Operator Name | Role | Phone [...] | | | | [address] | [facility] [place] | Pain) | | | | Mailcode: [id number] | [address] | | | | | [facility] | [phone] | | | | | [facility] [place] | | | | | | [address] | | | | | | [phone] | | | +--------+ + + + [...]
--- OUTSIDE RECORDS SUMMARY | ~2019-08-30 | XMS | Encounter Summary ---
Demographics + + + | Address | [address] | | | [place] [address] | + + + | Home Phone | | + + + | Preferred Language | Unknown | + + + | Marital Status | | + + + | Samaritan Affiliation | 1041 | + + + | Race | Unknown | + + + | Ethnic Group | Unknown | + + + Author + + + | Author | [facility] | | | and Sameerana | + + + | Organization | [facility] | | | and Sameerana [...] [place], [place] | | | | | [address] | | + + + + + | Bayron Dennis | ECON | [address] | | | | | [place], [place] | | | | | [address] | | + + + + + Care Team Providers + +------+ + | Care Asphalt Dauber Name | Role | Phone | + [...] | | | [address] [place] | [place] [address] | | | | | [place] [address] | | | | | | [phone] | | | +--------+ + + + [...] + +--------+ + + + | XR HIP RIGHT 2-3 | Routin | 11/26/2018 | | Results for this | | VIEWS | e | 12:10 AM | | procedure are in the | | | | PDT | | results section. | + +--------+ + + + documented in this encounter Results XR Hip Right 2-3 Views (11/26/2018 12:10 AM PDT) + + | Specimen | [...]
--- OUTSIDE RECORDS SUMMARY | ~2019-08-30 | XMS | Clinical Summary ---
Demographics + + + | Address | [address] | | | [place] [address] | + + + | Home Phone [...] [place] | | | | | [address] | | + + + + + Care Team Providers + +------+ + | Care Director Of Music Name | Role | Phone | + +------+ + | Miriam Treadwell | PCP | | + +------+ + Source Comments CHIQUITA is fully live on both [facility] and [facility] InPatient.[facility] Allergies + + + + + + [...] | [employer] | xxxxxxxxxx | 08/02/19 | [phone] | [address] | [employer] | | | RE A & | | 09-Pre | 1 | [address] | re | | | B | | sent | | [place] | | | | | | | | [address] | | + +--------+ +--------+ + +--------+ | [employer] | AARP | xxxxxxxxx | 03/03/19 | [phone] | [address] | Indemn | | RETIRED PEOPLE | | | 15-Pre | 9 | [phone] | ity | | | | | sent | | [place] | | | | | | | | [address] | | + +--------+ +--------+ + +--------+ [...] Bernie | al/Fam | | 1946 | [phone] | [place] [address] | | | henry | | | 0 (Home) | | + +--------+ +--------+ + + Advance Directives + + + + + | Type | Date Recorded | Patient | Explanation | | | | Laborer Carpentry Dock | | + + + + + [...]
--- OUTSIDE RECORDS SUMMARY | ~2019-08-30 | XMS | Encounter Summary ---
Demographics + + + | Address | [address] | | | [place] [address] | + + + | Home Phone | | + + + | Preferred Language | Unknown | + + + | Marital Status | | + + + | Advent Affiliation | 1041 | + + + | Race | Unknown | + + + | Ethnic Group | Unknown | + + + Author + + + | Author | [facility] | | | and Sameerana | + + + | Organization | [facility] | | | [...] [place], [place] | | | | | [address] | | + + + + + | Bayron Dennis | ECON | [address] | | | | | [place], [place] | | | | | [address] | | + + + + + Care Team Providers + +------+ + | Care Eyedotter Name | Role | Phone | + +------+ + | Prasanth Perry MD | PCP | | + +------+ + Encounter Details +--------+ + + + + | Date | Type | Department | Care Team | Description | +--------+ + + + + | 05/21/ | Abstract | [facility] [place] | [facility], | | | 2012 | | GASTROENTEROLOGY | [address] | | | | | [address] [place] | [address] | | | | | [address] [place], [place] | [place], [place] | | | | | [address] | [address] | | | | | [phone] | | | +--------+ + + + [...]
--- OUTSIDE RECORDS SUMMARY | ~2019-08-30 | XMS | Encounter Summary ---
Demographics + + + | Address | [address] | | | [place] [address] | + + + | Home Phone [...] | Taye Dennis | ECON | [address] | | | | | [place] | | | | | [address] | | + + + + + Care Team Providers + +------+ + | Care Designer Architect Name | Role | Phone | + [...] | | | Nico Mailcode: [id number] | [place], [place] | | | | | [place], [place] | [address] | | | | | [address] | [phone] | | | | | [phone] | | | +--------+ + + + [...] | + + + + + | [facility] DEPARTMENT | [address] [facility] | [place] [address] | | | PATHOLOGY | [address] | | | + + + + + | [facility] | [facility] [facility] | [place] [address] | | | PATHOLOGY | [address] [...] DEPARTMENT OF | [address] | [place] [address] | | | PATHOLOGY | [address] | | | + + + + + | [facility] DEPARTMENT OF | [address] | [place] [address] | | | PATHOLOGY | [address] | | | + + + + + MAGNESIUM, PLASMA (03/13/2005 6:25 AM PST) + +-------+ + + + | Component | Value | Ref Range | Performed | Pathologist | | | | | At | Signature | + +-------+ + + + | MAGNESIUM,P | 2.2 | 1.8 - 2.5 mg/dL | [facility] | | | LASMA | | | [...] | + + + + + | [facility] DEPARTMENT OF | [address] [facility] | [place] [address] | | | PATHOLOGY | [address] | | | + + + + + | [facility] DEPARTMENT OF | [address] [facility] | [place] [address] | | | PATHOLOGY | [address] [...] | + + + + + | [facility] DEPARTMENT OF | [address] | [place] [address] | | | PATHOLOGY | [address] | | | + + + + + | [place] DEPARTMENT OF | [address] | [place] [address] | | | PATHOLOGY | [address] [...] DEPARTMENT OF | [address] | [place] [address] | | | PATHOLOGY | [address] | | | + + + + + | [facility] DEPARTMENT OF | [address] | [place] [address] | | | PATHOLOGY | [address] | | | + + + + + MAGNESIUM, PLASMA (03/12/2005 3:00 PM PST) + +-------+ + + + | Component | Value | Ref Range | Performed | Pathologist | | | | | At | Signature | + +-------+ + + + | MAGNESIUM,P | 1.9 | 1.8 - 2.5 mg/dL | [facility] | | | LASMA | | | [...] | + + + + + | [facility] | [address] | [place] [address] | | | PATHOLOGY | [address] | | | + + + + + | [facility] | [address] | [place] [address] | | | PATHOLOGY | [address] [...] DEPARTMENT OF | [address] | [place] [address] | | | PATHOLOGY | [address] | | | + + + + + | [facility] DEPARTMENT OF | [address] | [place] [address] | | | PATHOLOGY | [address] [...] | + + + + + | [facility] DEPARTMENT OF | [address] | [place] [address] | | | PATHOLOGY | [address] | | | + + + + + | [facility] DEPARTMENT OF | [address] | [place] [address] | | | PATHOLOGY | [address] [...] | + + + + + | [facility] | [address] [facility] | [place] [address] | | | PATHOLOGY | [address] | | | + + + + + | [facility] | [address] [facility] | [place] [address] | | | PATHOLOGY | [address] [...] sectioned. | | | | | | Telegraph Repeater Technician | | | | | | sectionsare [...] | + + + + + | [facility] | [address] | [place] [address] | | | PATHOLOGY | [address] | | | + + + + + | [facility] DEPARTMENT OF | [address] | [place] [address] | | | PATHOLOGY | [address] | | | + + + + + documented in this encounter Visit Diagnoses Not on filedocumented in this encounter"
--- OUTSIDE RECORDS SUMMARY | ~2019-08-30 | XMS | Encounter Summary ---
Demographics + + + | Address | [address] | | | [place] [address] | + + + | Home Phone | | + + + | Preferred Language | Unknown | + + + | Marital Status | | + + + | Taoist Affiliation | CHR | + + + | Race | White | + + + | Ethnic Group | Not or | + + + Author + + + | Author | [facility] | + + + | Organization | [facility] | + + + | Address | Unknown | + + + | Phone | Unavailable | + + + Support + + + + + | Name | Relationship | Address | Phone | + + + + + | Taye Dennis | ECON | [address] | | | | | [place] | | | | | [address] | | + + + + + Care Team Providers + +------+ + | Care Electronic Field Service Engineer Name | Role | Phone | + +------+ + | Miriam Treadwell | PCP | | + +------+ + Encounter Details +--------+ + + + + | Date | Type | Department | Care Team | Description | +--------+ + + + + | 09/15/ | Pharmacy | [facility] | | | | 2019 | Visit | [facility] | | | | | | [address] | | | | | | [place], [place] | | | | | | [address] | | | | | | [phone] | | | +--------+ + + + [...]
--- OUTSIDE RECORDS SUMMARY | ~2019-08-30 | XMS | Encounter Summary ---
Demographics + + + | Address | [address] | | | [place] [address] | + + + | Home Phone | | + + + | Preferred Language | Unknown | + + + | Marital Status | | + + + | Gnosticist Affiliation | CHR | + + + | Race | White | + + + | Ethnic Group | Not or | + + + Author + + + | Author | [facility] | + + + | Organization | [facility] | + + + | Address | Unknown | + + + | Phone | Unavailable | + + + Support + + + + + | Name | Relationship | Address | Phone | + + + + + | Taye Dennis | ECON | [address] | | | | | [place] | | | | | [address] | | + + + + + Care Team Providers + +------+ + | Care Supervisor Long Goods Name | Role | Phone | + +------+ + PCP | Unavailable | + +------+ + Encounter Details +--------+ + + + + | Date | Type | Department | Care Team | Description | +--------+ + + + + | 03/13/ | Documentati | Anesthesiology | Unknown . | | | 2005 | on | [address] | | | | | | [place], | | | | | | [place] [address] | | | +--------+ + + + [...] | + +--------+ + + + | ANESTHESIA/SEDATION | | 03/13/2005 | | Results for this | | | | 10:29 AM | | procedure are in the | | | | PST | | results section. | + +--------+ + + + documented in this encounter Results ANESTHESIA/SEDATION (03/13/2005 10:29 AM PST) + + + | Narrative | Performed At | + + + | Ordered by an unspecified provider. | | + + + + + | Transcriptions | + + | 03/13/2005 10:29 AM [facility] Anesthesia PostOp Report | | | | Patient: JUDI DENNIS [facility] Med Rec: [id number] Sex F Bdate: 1945 | | Date/Time Data | | Entered Into [facility] | | Anesth PostOp | | Surgery Date [id number] 03/13/05 10:29 | | Anesthesiologist ROHAN CARREON 03/13/05 10:29 | | Resident Anesthesiolog ERICA WRIGHT 03/13/05 10:29 | | | + + documented in this encounter Visit Diagnoses Not on filedocumented in this encounter"
--- OUTSIDE RECORDS SUMMARY | ~2019-08-30 | XMS | Encounter Summary ---
Demographics + + + | Address | [address] | | | [place] [address] | + + + | Home Phone | | + + + | Preferred Language | Unknown | + + + | Marital Status | | + + + | Pentecostal Affiliation | CHR | + + + [...] | Taye Dennis | ECON | [address] | | | | | [place] | | | | | [address] | | + + + + + Care Team Providers + +------+ + | Care Stull Installer Name | Role | Phone | + [...] [facility] | | | | | | [address] | | | | | | Loop Physician's | | | | | | [place], [facility] Floor | | | | | | [place], [place] | | | | | | [address] | | | | | | [phone] | | | +--------+ + + + [...] | | + +---------+ + + | [facility] DEPARTMENT OF | | | | | RADIOLOGY | | | | + +---------+ + + documented in this encounter Visit Diagnoses + + | Diagnosis | + + | Right knee pain, unspecified chronicity | + + documented in this encounter"
--- OUTSIDE RECORDS SUMMARY | ~2019-08-30 | XMS | Encounter Summary ---
Demographics + + + | Address | [address] | | | [place] [address] | + + + | Home Phone | | + + + | Preferred Language | Unknown | + + + | Marital Status | | + + + | Rastafarian Affiliation | 1041 | + + + | Race | Unknown | + + + | Ethnic Group | Unknown | + + + Author + + + | Author | [facility] | | | and Sameerana | + + + | Organization | [facility] | | | and Sameerana [...] [place], [place] | | | | | [address] | | + + + + + | Bayron Dennis | ECON | [address] | | | | | [place], [place] | | | | | [address] | | + + + + + Care Team Providers + +------+ + | Care Forging Operator Name | Role | Phone | + +------+ + | Prasanth Perry MD | PCP | | + +------+ + Reason for Visit + +--------+ + | Reason | Onset | Comments | | | Date | | + +--------+ + | Medication Refill | 12/16/ | | | | 2011 | | + +--------+ + Encounter Details +--------+--------+ + + + | Date | Type | Department | Care Team | Description | +--------+--------+ + + + | 12/16/ | Refill | [facility] | Matt Forrester | Medication Refill | | 2011 | | SLEEP DISORDER [address] | MD Arron [address] | | | | | [address] | [address] [facility] | | | | | [place] [address] | [place] [address] | | | | | [phone] | [phone] | | | | | | | | +--------+--------+ + + + Social History + +-------+ +--------+------+ | Tobacco Use | Types | Packs/Day | Years | Date | | | | | Used | | + +-------+ +--------+------+ | Never Assessed | | | | | + +-------+ +--------+------+ + + +---------+ + | Alcohol Use | Drinks/Week | oz/Week | Comments | + + +---------+ + | Not Asked | | | | + + +---------+ + + + + | Sex Assigned at | Date Recorded | | | | + + + | Not on file | | + + + documented as of this encounter Miscellaneous Notes Telephone Encounter - Pippa Cunha - 12/18/2011 3:09 PM PDTCalled into nik nair spoke with perry documented in this encounter Plan of Treatment Not on filedocumented as of this encounter Visit Diagnoses Not on filedocumented in this encounter"
--- OUTSIDE RECORDS SUMMARY | ~2019-08-30 | XMS | Encounter Summary ---
Demographics + + + | Address | [address] | | | [place] [address] | + + + | Home Phone | | + + + | Preferred Language | Unknown | + + + | Marital Status | | + + + | Catholic Affiliation | CHR | + + + [...] | Taye Dennis | ECON | [address] | | | | | [place] | | | | | [address] | | + + + + + Care Team Providers + +------+ + | Care Manager Fiber Name | Role | Phone | + [...] as of this encounter Progress Notes Interface, Traffic And Transport Planner In - 03/23/2005 2:07 AM PST [id number] 03/20/2005 [id number] BOYD Clemons [address] [place], [place] [id number] or March 20, 2005 Lizeth Garrison M.D. [address] [facility] [address] [place] [address] RE: JUDI DENNIS MR #: [id number] Dear Dr. Garrison: I spoke with Mrs. [...] Sincerely, Dallas Lloyd M.D. SUJATHA / GIULIA [id number] / [id number] / [id number] / [id number] documented i n this encounter Plan of Treatment Not on filedocumented as of this encounter Visit Diagnoses Not on filedocumented in this encounter"
--- OUTSIDE RECORDS SUMMARY | ~2019-08-30 | XMS | Encounter Summary ---
Demographics + + + | Address | [address] | | | [place] [address] | + + + | Home Phone | | + + + | Preferred Language | Unknown | + + + | Marital Status | | + + + | Zoroastrianism Affiliation | CHR | + + + [...] | Taye Dennis | ECON | [address] | | | | | [place] | | | | | [address] | | + + + + + Care Team Providers + +------+ + | Care Flavor Extractor Name | Role | Phone | + [...] | | | | [address] | [place], [place] | | | | | Mailcode: [id number] | [address] | | | | | [facility] | [phone] | | | | | [place], [place] | | | | | | [address] | | | | | | [phone] | | | +--------+ + + + [...]
--- OUTSIDE RECORDS SUMMARY | ~2019-08-30 | XMS | Encounter Summary ---
Demographics + + + | Address | [address] | | | [place] [address] | + + + | Home Phone | | + + + | Preferred Language | Unknown | + + + | Marital Status | | + + + | Synagogue Affiliation | CHR | + + + | Race | White | + + + | Ethnic Group | Not or | + + + Author + + + | Author | [facility] | + + + | Organization | [facility] | + + + | Address | Unknown | + + + | Phone | Unavailable | + + + Support + + + + + | Name | Relationship | Address | Phone | + + + + + | Taye Dennis | ECON | [address] | | | | | [place] | | | | | [address] | | + + + + + Care Team Providers + +------+ + | Care Valet Service Attendant Name | Role | Phone | [...] as of this encounter Progress Notes Interface, Product Test Engineer In - 03/13/2005 2:10 AM PST [id number] BO[facility] Clemons [facility] Date: 03/11/2005 Clinic: Urology I saw and evaluated this patient with Dr. Gopi You. I discussed the patient with Dr. You and agree with his findings and plan as dictated in his note. A full PARQ conference was held with the patient. She understands the nature of the procedure, laparoscopic partial nephrectomy, the alternatives, and the risks and gives informed consent for surgery. Dallas Lloyd M.D. / [id number] / [id number] / [id number] / [id number] Electronically signed by Dallas Lloyd 03-12-2005 04:02:13 PM docudenys garcia this encounter Plan of Treatment Not on filedocumented as of this encounter Visit Diagnoses Not on filedocumented in this encounter"
--- OUTSIDE RECORDS SUMMARY | ~2019-08-30 | XMS | Encounter Summary ---
Demographics + + + | Address | [address] | | | [place] [address] | + + + | Home Phone | | + + + | Preferred Language | Unknown | + + + | Marital Status | | + + + | Faith Affiliation | 1041 | + + + | Race | Unknown | + + + | Ethnic Group | Unknown | + + + Author + + + | Author | [facility] | | | and Sameerana | + + + | Organization | [facility] | | | and Sameerana [...] [place], [place] | | | | | [address] | | + + + + + | Bayron Dennis | ECON | [address] | | | | | [place], [place] | | | | | [address] | | + + + + + [...] | | | [address] | [place] [address] | | | | | [place] [address] | | | | | | [phone] | | | +--------+ + + + [...] +--------+ + + + | XR KNEE RIGHT 4 + VW | Routin | 11/26/2018 | | Results for this | | | e | 12:00 AM | | procedure are in the | | | | PDT | | results section. | + +--------+ + + + documented in this encounter Results XR Knee Right 4 + Vw (11/26/2018 12:00 AM PDT) + + | Specimen [...]
--- OUTSIDE RECORDS SUMMARY | ~2019-08-30 | XMS | Encounter Summary ---
Demographics + + + | Address | [address] | | | [place] [address] | + + + | Home Phone [...] + + + | Author | [facility] | + + + | Organization | [facility] | + + + | Address | Unknown | + + + | Phone | Unavailable | + + + Support + + + + + | Name | Relationship | Address | Phone | + + + + + | Taye Dennis | ECON | [address] | | | | | [place] | | | | | [address] | | + + + + + Care Team Providers + +------+ + | Care Greenhouse Manager Name | Role | Phone | [...] as of this encounter Progress Notes Interface, Watch Supervisor In - 03/13/2005 2:10 AM [facility] [id number] BOYD Clemons [facility] Date: 03/11/2005 Clinic: Urology Reason for Consultation: Renal mass. History of Present Illness : Ms. Dennsi is a 59-year-old female with a history [...] was seen by Dr. Lizeth Garrison in [place] and is referred to [facility] U[facility] for possible laparoscopic partial nephrectomy. Her [...] her son and . 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 She smoked for 6 months when she was 16 years of age. She does not drink. She lives in [facility]. Family History: Her father had testicle cancer. [...] M.D. Dallas Lloyd M.D. CLAUDIO / GIULIA [id number] / [id number] / [id number] / [id number] Electronically signed by Dallas Lloyd 03-12-2005 04:02:21 PM documented i n this encounter Plan of Treatment Not on filedocumented as of this encounter Visit Diagnoses Not on filedocumented in this encounter"
--- OUTSIDE RECORDS SUMMARY | ~2019-08-30 | XMS | Encounter Summary ---
Demographics + + + | Address | [address] | | | [place] [address] | + + + | Home Phone | | + + + | Preferred Language | Unknown | + + + | Marital Status | | + + + | Restorationism Affiliation | CHR | + + + | Race | White | + + + | Ethnic Group | Not or | + + + Author + + + | Author | [facility] | + + + | Organization | [facility] | + + + | Address | Unknown | + + + | Phone | Unavailable | + + + Support + + + + + | Name | Relationship | Address | Phone | + + + + + | Taye Dennis | ECON | [address] | | | | | [place] | | | | | [address] | | + + + + + Care Team Providers + +------+ + | Care School Lunch Manager Name | Role | Phone | + +------+ + | Miriam Treadwell | PCP | | + +------+ + Encounter Details +--------+ + + + + | Date | Type | Department | Care Team | Description | +--------+ + + + + | 08/15/ | Document-Sc | UNKNOWN DEPARTMENT | Other, Faculty | | | 2016 | anned | [address] [facility] | [phone] | | | | | [address] | | | | | | [place], [place] | | | | | | [address] | | | +--------+ + + + [...]
--- OUTSIDE RECORDS SUMMARY | ~2019-08-30 | XMS | Encounter Summary ---
Demographics + + + | Address | [address] | | | [place] [address] | + + + | Home Phone | | + + + | Preferred Language | Unknown | + + + | Marital Status | | + + + | Jainism Affiliation | CHR | + + + [...] | Taye Dennis | ECON | [address] | | | | | [place] | | | | | [address] | | + + + + + Care Team Providers + +------+ + | Care Wire Frame Dipper Name | Role | Phone | + [...] Jose | | | | | [facility] | [facility] | | | | | Hospital Admitting | [place], [place] | | | | | Desk Located on the | [address] | | | | | 9th floor | [phone] | | | | | [place], [place] | | | | | | [address] | Dexter Post, DO | | +--------+ [...] 0 | Quick Note | Umm Abdalla BUILDER'S LABOURER | | | 7 | | | [...] | | | 07/06/15 at 0738, Until Binta 07/06/15 | | AM PDT [...]
--- OUTSIDE RECORDS SUMMARY | ~2019-08-30 | XMS | Encounter Summary ---
Demographics + + + | Address | [address] | | | [place] [address] | + + + | Home Phone | | + + + | Preferred Language | Unknown | + + + | Marital Status | | + + + | Yarsanism Affiliation | 1041 | + + + | Race | Unknown | + + + | Ethnic Group | Unknown | + + + Author + + + | Author | [facility] | | | and Sameerana | + + + | Organization | [facility] | | | [...] [place], [place] | | | | | [address] | | + + + + + | Bayron Dennis | ECON | [address] | | | | | [place], [place] | | | | | [address] | | + + + + + Care Team Providers + +------+ + | Care Bridge Worker Name | Role | Phone | + +------+ + | Prasanth Perry MD | PCP | | + +------+ + Encounter Details +--------+ + + + + | Date | Type | Department | Care Team | Description | +--------+ + + + + | 06/10/ | Hospital | [facility] | Conversion | Heel pain, right | | 2015 | Encounter | [facility] MRI [address] | Transaction, | | | | | [address] | Provider Unknown | | | | | [place], [place] | | | | | | [address] | (Fax) | | | | | [phone] | | | +--------+ + + + [...] + + + +---------+ + + | Toledo-3 Fatty | Take 1,200 mg by | [...] + +--------+ + + + | MRI ANKLE RIGHT WO | Routin | 06/10/2014 | | Results for this | | CONTRAST | e | 10:59 AM | | procedure are in the | | | | PDT | | results section. | + +--------+ + + + documented in this encounter Results MRI Ankle Right wo Contrast (06/10/2014 10:59 AM PDT) + + | Specimen | + + | | + + + + + | Impressions | Performed At | + + + | 1. Plantar fasciitis. Significant thickening of the plantar fascia | | | at the origin of the calcaneus measuring approximately 9 mm in | | | thickness. There is surrounding soft tissue edema. 2. No acute | | | tendinous abnormality. No ligament tear. | | + + + + + + | Narrative | Performed At | + + + | JUDI DENNIS 1945 MRI ANKLE RIGHT WO CONTRAST 06/10/2014 | | | 10:59 AM HISTORY: Right heel pain. COMPARISON: Radiograph | | | May 23, 2014 TECHNIQUE: Imaging was performed on a 1.5 Hannah | | | MRI system. Multiplanar sequences according to a standard department | | | protocol were acquired without contrast. FINDINGS: Plantar | | | fascial thickening and edema. The plantar fascia measures 0.9 cm in | | | thickness at the calcaneal attachment. Findings are consistent with | | | plantar fasciitis. Tibiotalar, subtalar, calcaneocuboid, | | | talonavicular, naviculocuneiform and tarsometatarsal joints are | | | normal. Achilles tendon is normal. Calcaneus is normal. No acute | | | fracture or bone marrow edema. Anterior process of the calcaneus and | | | the lateral talar process are normal. Extensor, flexor and | | | peroneal tendons are normal. Anterior and posterior syndesmotic | | | ligaments are intact. The anterior talofibular, posterior talofibular | | | and calcaneofibular ligaments are intact and normal. Deltoid ligament | | | is intact and normal. Plantar musculature is normal in signal. | | | Cartilage of the tibiotalar joint space is preserved. | | + + + + + | Procedure Note | + + | Farhat, Rad Conversion - 10/16/2018 7:42 AM TESS DENNIS1945MRI ANKLE | | RIGHT WO CONTRAST06/10/2014 10:59 AM HISTORY: Right heel pain. COMPARISON: Radiograph | | May 23, 2014 TECHNIQUE:Imaging was performed on a 1.5 Hannah MRI system. Multiplanar | | sequences according to a standard department protocol were acquired without contrast. | | FINDINGS: Plantar fascial thickening and edema. The plantar fascia measures 0.9 cm in | | thickness at the calcaneal attachment. Findings are consistent with plantar fasciitis. | | Tibiotalar, subtalar, calcaneocuboid, talonavicular, naviculocuneiform and | | tarsometatarsal joints are normal. Achilles tendon is normal. Calcaneus is normal. No | | acute fracture or bone marrow edema. Anterior process of the calcaneus and the lateral | | talar process are normal. Extensor, flexor and peroneal tendons are normal. Anterior and | | posterior syndesmotic ligaments are intact. The anterior talofibular, posterior | | talofibular and calcaneofibular ligaments are intact and normal. Deltoid ligament is | | intact and normal. Plantar musculature is normal in signal. Cartilage of the tibiotalar | | joint space is preserved. IMPRESSION: 1. Plantar fasciitis. Significant thickening of | | the plantar fascia at the origin of the calcaneus measuring approximately 9 mm in | | thickness. There is surrounding soft tissue edema.2. No acute tendinous abnormality. No | | ligament tear. | | | |Calcaneus is normal. No acute fracture or bone marrow edema. Anterior process of the calcan eus and the lateral talar process are normal. | | | |Extensor, flexor and peroneal tendons are normal. | | | |Anterior and posterior syndesmotic ligaments are intact. The anterior talofibular, posterio r talofibular and calcaneofibular ligaments are intact and normal. Deltoid ligament is intac t and normal. | | | |Plantar musculature is normal in signal. | | | |Cartilage of the tibiotalar joint space is preserved. | | | |IMPRESSION: | |1. Plantar fasciitis. Significant thickening of the plantar fascia at the origin of the ca lcaneus measuring approximately 9 mm in thickness. There is surrounding soft tissue edema. | |2. No acute tendinous abnormality. No ligament tear. | | | | | + + documented in this encounter Visit Diagnoses + + | Diagnosis | + + | Heel pain, right | + + documented in this encounter"
--- OUTSIDE RECORDS SUMMARY | ~2019-08-30 | XMS | Encounter Summary ---
Demographics + + + | Address | [address] | | | [place] [address] | + + + | Home Phone | | + + + | Preferred Language | Unknown | + + + | Marital Status | | + + + | Cheondoism Affiliation | 1041 | + + + | Race | Unknown | + + + | Ethnic Group | Unknown | + + + Author + + + | Author | [facility] | | | and Sameerana | + + + | Organization | [facility] | | | and Sameerana [...] [place], [place] | | | | | [address] | | + + + + + | Bayron Dennis | ECON | [address] | | | | | [place], [place] | | | | | [address] | | + + + + + Care Team Providers + +------+ + | Care Hand Pleater Name | Role | Phone | + [...] | | | [address] | [place] [address] | | | | | [place] [address] | | | | | | [phone] | | | +--------+ + + + [...] + + + | XR KNEE LEFT 4 + VW | Routin | 11/26/2018 | | Results for this | | | e | 12:05 AM | | procedure are in the | | | | PDT | | results section. | + +--------+ + + + documented in this encounter Results XR Knee Left 4 + Vw (11/26/2018 12:05 AM PDT) + + | Specimen | [...]
--- OUTSIDE RECORDS SUMMARY | ~2019-08-30 | XMS | Encounter Summary ---
Demographics + + + | Address | [address] | | | [place] [address] | + + + | Home Phone | | + + + | Preferred Language | Unknown | + + + | Marital Status | | + + + | Holiness Affiliation | CHR | + + + | Race | White | + + + | Ethnic Group | Not or | + + + Author + + + | Author | [facility] | + + + | Organization | [facility] | + + + | Address | Unknown | + + + | Phone | Unavailable | + + + Support + + + + + | Name | Relationship | Address | Phone | + + + + + | Taye Dennis | ECON | [address] | | | | | [place] | | | | | [address] | | + + + + + Care Team Providers + +------+ + | Care Carpentry Professional Name | Role | Phone | + +------+ + | Miriam Treadwell | PCP | | + +------+ + Encounter Details +--------+ + + + + | Date | Type | Department | Care Team | Description | +--------+ + + + + | 09/15/ | Pharmacy | [facility] | | | | 2019 | Visit | Medicine at [place] | | | | | | [address] | | | | | | [place], [place] | | | | | | [address] | | | | | | [phone] | | | +--------+ + + + [...]
--- OUTSIDE RECORDS SUMMARY | ~2019-08-30 | XMS | Encounter Summary ---
Demographics + + + | Address | [address] | | | [place] [address] | + + + | Home Phone | | + + + | Preferred Language | Unknown | + + + | Marital Status | | + + + | Denominational Affiliation | CHR | + + + [...] Taye Dennis | ECON | [address] | | | | | [place] | | | | | [address] | | + + + + + Care Team Providers + +------+ + | Care Chemical Laboratory Chief Name | Role | Phone | + +------+ + | Miriam Treadwell | PCP | | + +------+ + Reason for Visit +--------+ + | Reason | Comments | +--------+ + | FMLA | for tom Suggs | +--------+ + Encounter Details +--------+ + + + + | Date | Type | Department | Care Team | Description | +--------+ + + + + | 07/06/ | Documentati | Orthopaedics at | Suman Gavin, | SHANTELLE (for daughter | | 2016 | on | [address] | MD [address] | Es) | | | | [address] | [place], [place] | | | | | Mailcode: [id number] | [address] | | | | | [facility] | [phone] | | | | | [place], [place] | | | | | | [address] | | | | | | [phone] | | | +--------+ + + + [...]
--- OUTSIDE RECORDS SUMMARY | ~2019-08-30 | XMS | Encounter Summary ---
Demographics + + + | Address | [address] | | | [place] [address] | + + + | Home Phone | | + + + | Preferred Language | Unknown | + + + | Marital Status | | + + + | Spiritism Affiliation | CHR | + + + | Race | White | + + + | Ethnic Group | Not or | + + + Author + + + | Author | [facility] | + + + | Organization | [facility] | + + + | Address | Unknown | + + + | Phone | Unavailable | + + + Support + + + + + | Name | Relationship | Address | Phone | + + + + + | Taye Dennis | ECON | [address] | | | | | [place] | | | | | [address] | | + + + + + Care Team Providers + +------+ + | Care Blacktop Spreader Name | Role | Phone | + +------+ + | Miriam Treadwell | PCP | | + +------+ + Encounter Details +--------+ + + + + | Date | Type | Department | Care Team | Description | +--------+ + + + + | 07/11/ | Telephone | Orthopaedics | Suman Gavin, | | | 2020 | | Faculty at [facility] | MD Zoey [place] | | | | | for Health and | [place], [place] | | | | | Healing [address] | [address] | | | | | [address] Mailcode: | [phone] | | | | | [facility] [facility] | | | | | | Health and Healing, | | | | | | [facility] [address] | | | | | | [place], [place] | | | | | | [address] | | | | | | [phone] | | | +--------+ + + + [...]
--- OUTSIDE RECORDS SUMMARY | ~2019-08-30 | XMS | Encounter Summary ---
Demographics + + + | Address | [address] | | | [place] [address] | + + + | Home Phone | | + + + | Preferred Language | Unknown | + + + | Marital Status | | + + + | Anabaptism Affiliation | CHR | + + + | Race | White | + + + | Ethnic Group | Not or | + + + Author + + + | Author | [facility] | + + + | Organization | [facility] | + + + | Address | Unknown | + + + | Phone | Unavailable | + + + Support + + + + + | Name | Relationship | Address | Phone | + + + + + | Taye Dennis | ECON | [address] | | | | | [place] | | | | | [address] | | + + + + + Care Team Providers + +------+ + | Care General Ii Farmworker Name | Role | Phone | + [...] | | | | | [place], | | | | | | [place] [address] | | | +--------+ + + + [...] | + + | 03/13/2005 10:29 AM [facility] Anesthesia PostOp Report | | | | Patient: JUDI DENNIS [facility] Med Rec: [id number] Sex F Bdate: 1945 | | Date/Time Data | | Entered Into [facility] | | Anesth PostOp | | Surgery Date [id number] 03/13/05 10:29 | | Anesthesiologist ROHAN CARREON 03/13/05 10:29 | | Resident Anesthesiolog ERICA WRIGHT 03/13/05 10:29 | | | + + documented in this encounter Visit Diagnoses Not on filedocumented in this encounter"
--- OUTSIDE RECORDS SUMMARY | ~2019-08-30 | XMS | Encounter Summary ---
Demographics + + + | Address | [address] | | | [place] [address] | + + + | Home Phone | | + + + | Preferred Language | Unknown | + + + | Marital Status | | + + + | Synagogue Affiliation | CHR | + + + | Race | White | + + + | Ethnic Group | Not or | + + + Author + + + | Author | [facility] | + + + | Organization | [facility] | + + + | Address | Unknown | + + + | Phone | Unavailable | + + + Support + + + + + | Name | Relationship | Address | Phone | + + + + + | Taye Dennis | ECON | [address] | | | | | [place] | | | | | [address] | | + + + + + Care Team Providers + +------+ + | Care College Or University Business Manager Name | Role | Phone | [...] as of this encounter Progress Notes Interface, Wellness Program Coordinator In - 03/13/2005 2:10 AM PST [id number] [facility] Date: 03/11/2005 Clinic: Urology [...] consent for surgery. Dallas Lloyd M.D. / [id number] / [id number] / [id number] / [id number] Electronically signed by Dallas Lloyd 03-12-2005 04:02:13 PM docudenys garcia this encounter Plan of Treatment Not on filedocumented as of this encounter Visit Diagnoses Not on filedocumented in this encounter"
--- OUTSIDE RECORDS SUMMARY | ~2019-08-30 | XMS | Encounter Summary ---
Demographics + + + | Address | [address] | | | [place] [address] | + + + | Home Phone | | + + + | Preferred Language | Unknown | + + + | Marital Status | | + + + | Faith Affiliation | CHR | + + + | Race | White | + + + | Ethnic Group | Not or | + + + Author + + + | Author | [facility] | + + + | Organization | [facility] | + + + | Address | Unknown | + + + | Phone | Unavailable | + + + Support + + + + + | Name | Relationship | Address | Phone | + + + + + | Taye Dennis | ECON | [address] | | | | | [place] | | | | | [address] | | + + + + + Care Team Providers + +------+ + | Care Coal Cutter Name | Role | Phone | + [...] + + | 07/05/ | Hospital | [facility] [address] | Eileen Gavin, | | | 2016 - | Encounter | [address] | [address] | | | | | [place], | [place], [place] | | | 07/06/ | | [place] [address] | [address] | | | 2015 | | [phone] | [phone] | | | | | | | [...] | | Attending Surgeon: Eileen Gavin MD Children'S Choir Director(s): Kwadwo Cunningham MD. | | Dmitriy Sauceda [...] 07/06/2015 10:50:03DT: 07/06/2015 | | 11:48:28Job #: [id number] | + + SURGICAL PATHOLOGY (07/06/2015) + [...] in | | | | | | aggregate.Shelf Drier Operator | | | | | | sections [...] | + + + + + | [facility] | [address] | [place] [address] | | | PATHOLOGY | [address] [...] PDT | | | | | dose, [facility] 07/06/15 at 0800 | | | [...]
--- OUTSIDE RECORDS SUMMARY | ~2019-08-30 | XMS | Encounter Summary ---
Demographics + + + | Address | [address] | | | [place] [address] | + + + | Home Phone | | + + + | Preferred Language | Unknown | + + + | Marital Status | | + + + | Sabianist Affiliation | 1041 | + + + | Race | Unknown | + + + | Ethnic Group | Unknown | + + + Author + + + | Author | [facility] | | | and Sameerana | + + + | Organization | [facility] | | | and [...] [place], [place] | | | | | [address] | | + + + + + | Bayron Dennis | ECON | [address] | | | | | [place], [place] | | | | | [address] | | + + + + + Care Team Providers + +------+ + | Care Plant Tech Name | Role | Phone | + +------+ + | Prasanth Perry MD | PCP | | + +------+ + Reason for Visit + + + | Reason | Comments | + + + | Insomnia | | + + + Encounter Details +--------+---------+ + + + | Date | Type | Department | Care Team | Description | +--------+---------+ + + + | 12/02/ | Office | [facility] | Matt Forrester | Insomnia due to | | 2011 | Visit | SLEEP DISORDER [address] | MD [address] | mental disorder | | | | [address] [place] | [place] | (Primary Dx); | | | | [place] [address] | [place] [address] | Anxiety disorder | | | | [phone] | [phone] | | | | | | | | +--------+---------+ + + + [...] + + + | Blood Pressure | 122/82 | 12/03/2011 1:25 PM | | | | | PDT | | + + + + + | Pulse | 87 | 12/03/2011 1:25 PM | | | | | PDT | | + + + + + | Temperature | - | - | | + + + + + | Respiratory Rate | 14 | 12/03/2011 1:25 PM | | | | | PDT | | + + + + + | Oxygen Saturation | - | - | | + + + + + | Inhaled Oxygen | - | - | | | Concentration | | | | + + + + + | Weight | 69.9 kg (154 lb) | 12/03/2011 1:25 PM | | | | | PDT | | + + + + + | Height | - | - | | + + + + + | Body Mass Index | 26.85 | 05/14/2011 12:00 AM | | | | | PDT | | + + + + + documented in this encounter Patient Instructions Patient Instructions Pippa Cunha - 12/03/2011 1:48 PM PDT December 03, 2011 Judi Dennis [address] [place] [address] Dear Judi: Thank you for enrolling in [employer] [facility]. Please follow the instructions below to view your [facility] online medical record. [facility] allows you to send secure messages to your doctor, view you r test results, renew your prescriptions, schedule appointments, and more. How Do I Sign Up? 1. In your Internet browser, go to [email or web address] 2. Click on the Sign Up Now link in the Sign In box.This will take you to the New Member Si gn Up page. 3. Enter your [facility] access code exactly as it appears below. You will not need to use thi s code after you sign up. If you do not sign up before the expiration date, you must request a new code through your [facility]. [facility] Access Code: [email or web address] Expires: 02/01/2012 13:48 4. Fill in the last four digits of your Social Security Number (xxxx) and Date of (mm /dd/yyyy) when asked and click Submit. You will now be asked to create a [facility] ID. 5. Create a [employer] ID. This will be your [facility] login ID. Your login ID cannot be changed , so think of one that is secure and easy to remember. 6. Create a [facility] password. You can change your password at any time. 7. Enter your Password Reset Question and Answer. This can be used at a later time if you f orget your password. 8. Enter your e-mail address. You will receive e-mail notification when new information is available in [facility]. 9. Click Sign Up. You may now view your medical record. Additional Information If you have questions, you can email [email or web address] or call [phone] to talk to our [facility] care team. Please remember, [facility] should NOT be used fo r urgent needs. For all medical emergencies, call 911. Sincerely, Matt Forrester MD documented in this encounter Progress Notes Matt Forrester Jr., MD - 12/03/2011 1:53 PM PDTThe patient states that she continues to do poorly. She is going to bed at about MN. She is falling asleep rather quickly but then aw akens numerous times at night. Upon awakening she starts worrying about her and his illness. She does get up, in the dark, and go to another room where she usually sits quietly in the dark (sometimes, she will turn on some music. She does not turn on the lights). When she gets sleepy she goes back to bed. She falls asleep but then awakens again about an hour later. She is not using the constructive worry time that I suggested at the last visit. She has not contacted Dr. Madden. I've asked her what she thinks is issue. She today states that she really doesn't understan d why she isn't sleeping and why she can't control her sleep. When I suggested that perhaps issues surrounding her might play a role, she says that this is unlikely because the y don't have another doctor's appointment for him until January and so they don't really kn ow his prognosis. She doesn't recognize a connection between this uncertainty and her sleep. I did mention that the patient's sleep actually improved quite a bit over the summer after we finished with the Spring CBT-I. Her current insomnia seems to have started when her husba nd started losing weight which was felt to possibly be secondary to pancreatic cancer. She d oesn't recognize overtly today a relationship. I've then asked her what she would like to do. She says that she would like a pill to help her sleep. I have mentioned that she, in the past, has been on numerous sedating medications without success. In fact, that is why Dr. Perry first referred her. She thinks that it mi ght be different this time. She in fact stated "If I could only sleep, I'd feel so much bett er." I've told her I am willing to test this hypothesis. Today I've given her a prescription for zolpidem 10mg to be taken at bedtime. Bedtime should be no earlier than MN and wake time at 6am. I've warned her that she might feel drowsy in the morning and thus she should drive un til she is sure that she doesn't have morning drowsiness. I've told her that she could start with 1/2 a zolpidem tablet at bedtime. F/U in one week to assess the results of this interv ention. Zolpidem 10mg #10 tablets were prescribed. The patient is also once again strongly e ncouraged to contact Dr. Leah Madden for psychologic help with her issues of anxiety, denial , and stresses of her and his illness. She says that she will think about this. RTC in 1 week. CC: Dr. 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
--- OUTSIDE RECORDS SUMMARY | ~2019-08-30 | XMS | Encounter Summary ---
Demographics + + + | Address | [address] | | | [place] [address] | + + + | Home Phone [...] Taye Dennis | ECON | [address] | | | | | [place] | | | | | [address] | | + + + + + Care Team Providers + +------+ + | Care Industrial Yard Brake Coupler Name | Role | Phone | + [...] [place] | | | | | | [address] | | | +--------+ + + + [...]
--- OUTSIDE RECORDS SUMMARY | ~2019-08-30 | XMS | Encounter Summary ---
Demographics + + + | Address | [address] | | | [place] [address] | + + + | Home Phone [...] + + + | Author | [facility] | + + + | Organization | [facility] | + + + | Address | Unknown | + + + | Phone | Unavailable | + + + Support + + + + + | Name | Relationship | Address | Phone | + + + + + | Taye Dennis | ECON | [address] | | | | | [place] | | | | | [address] | | + + + + + Care Team Providers + +------+ + | Care Route Clerk Name | Role | Phone | [...] [place] | | | | | | [address] | | | +--------+ + + + [...]
--- OUTSIDE RECORDS SUMMARY | ~2019-08-30 | XMS | Encounter Summary ---
Demographics + + + | Address | [address] | | | [place] [address] | + + + | Home Phone | | + + + | Preferred Language | Unknown | + + + | Marital Status | | + + + | Christian Affiliation | CHR | + + + | Race | White | + + + | Ethnic Group | Not or | + + + Author + + + | Author | [facility] | + + + | Organization | [facility] | + + + | Address | Unknown | + + + | Phone | Unavailable | + + + Support + + + + + | Name | Relationship | Address | Phone | + + + + + | Taye Dennis | ECON | [address] | | | | | [place] | | | | | [address] | | + + + + + Care Team Providers + +------+ + | Care Kiln Stacker Name | Role | Phone | + [...] | | | | [address] | [place], [place] | | | | | Mailcode: [id number] | [address] | | | | | [facility] | [phone] | | | | | [place], [place] | | | | | | [address] | | | | | | [phone] | | | +--------+ + + + [...]
[~2019-08-30 11:52] MED LIST changes: +FLOMAX0.4 MG PO; +METHOCARBAMOL500 MG PO; +NORCO 5-325 TA1 EACH PO
--- OUTSIDE RECORDS SUMMARY | 2019-08-30 11:54 | XMS ---
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 EGuillermo VISIT COUNT (12 MO.) 2 KRISTEN Adam TOTAL 2 NOTE: Visits indicate total known visits. ED/UCC VISIT TRACKING (12 MO.) 08/30/2019 11:53 KRISTEN Martel [place] TYPE: Emergency COMPLAINT: - HEADACHE, VOMITING, NAUSEA 06/13/2019 07:19 KRISTEN Martel [place] TYPE: Emergency COMPLAINT: - ABD / BACK PAIN DIAGNOSES: - Allergy status to other antibiotic agents status - Hydronephrosis with renal and ureteral calculous obstruction - Unspecified abdominal pain - Anxiety disorder, unspecified - Other skilled nursing (current) drug therapy INPATIENT VISIT TRACKING (12 MO.) No inpatient visits to display in this time frame [email or web address]
== END 2019-08-30 17:40 | disposition home or self-care (01) ==
LOC: ED 11:52
DX: R11.2 Nausea with vomiting, unspecified (principal); F41.9 Anxiety disorder, unspecified; Z88.1 Allergy status to other antibiotic agents; Z79.899 Other long term (current) drug therapy
CPT/HCPCS: 74177; 80053; 85025; 96374; 99284-25; C9803; J2405; Q9967; U0002

== ENCOUNTER 2019-10-08 05:40 | Day surgery (SDC) | payer MEDICARE ==
[~2019-10-08] VITALS: Ht 161.3 cm; Wt 67.1 kg
[~2019-10-08 05:40] MED LIST changes: +ARTHRITIS PAIN650 MG PO; +CELECOXIB200 MG PO
[2019-10-08] MEDS ORDERED: CELECOXIB200 MG PO (07:32)
[2019-10-08] MEDS ORDERED: HYDROCODON-ACE1 EA11 PO (07:32)
[2019-10-08] MEDS ORDERED: NORCO 7.5-3251 EACH PO (07:40)
--- NOTE | 2019-10-08 07:42 | NUR ---
10/08/19 0742 Sarah Blanca 0718 PATIENT ARRIVES TO PACU UNRESPONSIVE TO PAIN. ORAL AIRWAY IN PLACE. RESP EVEN AND UNLABORED, MASK AT 6 LITERS.
--- NOTE | 2019-10-08 09:05 | NUR ---
PATIENT UP TO BATHROOM, STEADY ON FEET. VOIDED 500 ML OF URINE. DRINKING AND EATING WELL. DENIES PAIN AT THIS TIME. PATIENT DRESSED SELF. DRESSING TO KNEE C/D/I. PROVIDED WITH ICE PACK TO TAKE HOME. DC INSTRUCTIONS VERBALIZED AND SELF DEMONSTRATED UNDERSTANDING. PROVIDED WHEELCHAIR RIDE TO FRONT. WENT OVER DISCHARGE INSTRUCTION WITH MYA, ANSWERED ALL QUESTIONS AND CONCERNS.
--- NOTE | 2019-10-09 08:56 | [place] ---
[facility] [address], [place] [address] Signed DATE OF OPERATION: 10/08/2019 SURGEON: Daysi Dutta MD PREOPERATIVE DIAGNOSIS: Medial meniscus tear, right knee. POSTOPERATIVE DIAGNOSIS: Medial meniscus tear, right knee. PROCEDURE: Right knee arthroscopy with partial medial meniscectomy. HISTOLOGY MANAGER: Nayla MUNOZ. ANESTHESIA: General. BLOOD LOSS: None. BRIEF HISTORY: Judi is a 74-year-old female with pain and locking in her knee. She has mild arthritis and felt to be stable for arthroscopic debridement. Risks and benefits were discussed with her at length. She understands and wishes to proceed. Once consent was obtained, she was taken to the operating room. After adequate anesthesia, she was placed on the operating table. All downside pressure points were well padded. The left leg was flexed, abducted, and externally rotated on a well-padded leg de oliveira. The right was placed in well-padded leg de oliveira and the wound sites were preinjected using 0.25% Marcaine with epinephrine under alcohol prep. Standard inferior lateral and superolateral portals were made and scope was introduced. prepping and draping. ARTHROSCOPIC FINDINGS: She had marked synovitis throughout the knee suprapatellar pouch. She had grade 3 chondromalacia of the patella, grade 3 chondromalacia of the medial femoral condyle tibia. There was a complex degenerative tear of the medial meniscus posteriorly and medially. The ACL and PCL were intact. The lateral compartment was intact. Electronically Signed By: DAYSI DUTTA MD 10/09/19 0856 PATIENT NAME: JUDI NIX OPERATIVE REPORT DATE OF : 41 REPORT #: [id number] PHYSICIAN: DAYSI DUTTA MD PCP: VALENCIA URIAS MD REPORT IS CONFIDENTIAL AND NOT TO BE RELEASED WITHOUT AUTHORIZATION [facility] [address], [place] [address] Signed DESCRIPTION OF PROCEDURE: A standard inferomedial portal was made after localization using needle. The straight and curved biters were then used to trim the meniscus tear back to a stable rim. This was then smoothed and tethered using the shaver, all debris was evacuated. The scope was then withdrawn. Portals were closed with 3-0 nylon and the knee was injected with 60 mg Toradol at the end of the case. The wound was dressed with Adaptic, ABD, and Nikhil wrap. She tolerated the procedure well. All sponge, needle and instrument counts were correct. Daysi Dutta MD BA/MODL /[id number] Copies: ~ Electronically Signed By: DAYSI DUTTA MD 10/09/19 0856 PATIENT NAME: JUDI NIX OPERATIVE REPORT DATE OF : 41 REPORT #: [id number] PHYSICIAN: DAYSI DUTTA MD PCP: VALENCIA URIAS MD REPORT IS CONFIDENTIAL AND NOT TO BE RELEASED WITHOUT AUTHORIZATION
== END 2019-10-08 09:10 | disposition home or self-care (01) ==
LOC: DS 05:40
PROVIDERS: Specialist
PROC: 0SBC4ZZ Excision of Right Knee Joint, Percutaneous Endoscopic Approach (ICD-10-PCS; principal; 2019-10-08 06:45)
DX: S83.231A Complex tear of medial meniscus, current injury, right knee, initial encounter (principal); M22.41 Chondromalacia patellae, right knee; M12.261 Villonodular synovitis (pigmented), right knee; K21.9 Gastro-esophageal reflux disease without esophagitis; Z79.899 Other long term (current) drug therapy; Z88.1 Allergy status to other antibiotic agents
CPT/HCPCS: 01400; J0690; J0735; J1100; J1885; J2001; J2250; J2405; J2704; J2765; J3010; J7121

== ENCOUNTER 2021-11-18 14:58 | Emergency (ER) | payer OTHER, MEDICARE ==
[~2021-11-18] VITALS: Ht 161.3 cm; Wt 66.0 kg
[~2021-11-18 14:58] MED LIST changes: +CEPHALEXIN500 M1 PO; +FLONASE ALLERG9.9 ML NAS; +GNP B-COMPLEX1 EACH PO; +HYDROCODON-ACE1 EA11 PO; +IRON240 MG PO; +NORCO 7.5-3251 EACH PO; +ONDANSETRON ODT8 MG PO; +OXYCODONE HCL5 MG PO; +SENNA LAX8.6 MG PO; +SYSTANE 0.3-0.415 ML OPTH; +TRAZODONE HCL5 GM MISC; +VIT C-ROSE HIP500 MG PO; +XARELTO10 MG PO; +ZYRTEC10 MG PO
--- OUTSIDE RECORDS SUMMARY | 2021-11-18 15:00 | XMS ---
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 EGuillermo VISIT COUNT (12 MO.) 2 KRISTEN Adam TOTAL 2 NOTE: Visits indicate total known visits. ED/UCC VISIT TRACKING (12 MO.) 11/18/2021 14:[address] 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
[2021-11-18] MEDS ORDERED: ULTRAM50 MG PO (21:47)
== END 2021-11-18 22:32 | disposition home or self-care (01) ==
LOC: ED 14:58
DX: S92.341A Displaced fracture of fourth metatarsal bone, right foot, initial encounter for closed fracture (principal); S92.354A Nondisplaced fracture of fifth metatarsal bone, right foot, initial encounter for closed fracture; W01.10XA Fall on same level from slipping, tripping and stumbling with subsequent striking against unspecified object, initial encounter; Z85.3 Personal history of malignant neoplasm of breast; Z88.1 Allergy status to other antibiotic agents; Z88.8 Allergy status to other drugs, medicaments and biological substances; Z88.5 Allergy status to narcotic agent; Z79.899 Other long term (current) drug therapy
CPT/HCPCS: 73630; 99283-25; A9270

== ENCOUNTER 2024-06-15 12:05 | Emergency (ER) | payer MEDICARE ==
[~2024-06-15] VITALS: Ht 161.3 cm; Wt 76.0 kg
[~2024-06-15 12:05] MED LIST changes: +ULTRAM50 MG PO
[2024-06-15 12:28] LABS: BASOPHILS 0.7 % (0-2); EOSINOPHILS 2.8 % (0-6); HEMATOCRIT 40.2 % (35.0-50.0); HEMOGLOBIN 13.9 g/dL (12.0-18.0); LYMPHOCYTES 38.8 % (24-44); MCH 28.7 (27-36); MCHC 34.6 g/dl (30-36); MCV 83.1 fl (81-99); NEUTROPHILS 48.7 % (39-80); PLATELET COUNT 162 K/uL (140-440); RBC 4.84 M/ul (4.3-5.7); RDW 13.5 (10.5-15.0)
[2024-06-15 12:37] LABS: PARTIAL THROMBOPLASTIN TIME 27.1 Sec (22.9-41.3)
[2024-06-15 12:38] LABS: PROTIME 12.6 Sec (11.2-14.2)
[2024-06-15] MEDS ORDERED: HYDROXYZINE HCL10 MG PO (12:41)
[2024-06-15] MEDS ORDERED: ZOLPIDEM TARTRAT5 MG PO (12:42)
[2024-06-15 12:52] LABS: ALBUMIN 3.5 g/dL (3.4-5.0); ALBUMIN/GLOBULIN RATIO 1.25 (1.1-2.4); ANION GAP 10.6 (7-21); BILIRUBIN, TOTAL 0.4 mg/dL (0.2-1.0); BUN/CREATININE RATIO 17.04 (6.0-28.6); CALCIUM 9.1 mg/dL (8.5-10.1); CREATININE, SERUM 0.88 mg/dL (0.55-1.02); POTASSIUM 3.6 mmol/L (3.5-5.1); PROTEIN, TOTAL 6.3 g/dL (6.4-8.2)
[2024-06-15] MEDS ORDERED: DULOXETINE HCL30 MG PO (12:55)
[2024-06-15] MEDS ORDERED: ASPIRIN 325 MG TAB PO ONE (13:00)
[2024-06-15] MEDS ORDERED: ADULT LOW DOSE81 MG PO (14:29)
[2024-06-15 14:50] VITALS: BP 183/86
--- NOTE | 2024-06-16 10:56 | EKG ---
[facility] [address] [facility] [place] [address] Signed Normal sinus rhythm Normal ECG When compared with ECG of 28-SEP-2019 17:32, No significant change was found Confirmed by Alicia Gaitan DO ([id number]) on 06/16/2024 10:56:13 AM Electronically Signed By: ALICIA GAITAN DO 06/16/24 1056 PATIENT NAME: EDER NIX Electrocardiogram DATE OF : 41 PHYSICIAN: ALICIA GAITAN DO REPORT #: [id number] REPORT IS CONFIDENTIAL AND NOT TO BE RELEASED WITHOUT AUTHORIZATION
== END 2024-06-15 14:50 | disposition home or self-care (01) ==
LOC: ED 12:05
PROVIDERS: Emergency Medicine
DX: G45.9 Transient cerebral ischemic attack, unspecified (principal); Z79.899 Other long term (current) drug therapy; Z79.51 Long term (current) use of inhaled steroids; Z88.1 Allergy status to other antibiotic agents; Z88.0 Allergy status to penicillin; Z88.8 Allergy status to other drugs, medicaments and biological substances
CPT/HCPCS: 36415; 70450; 70496; 70498; 70551; 71045; 80053; 85025; 85610; 85651; 85730; 86140; 93005; 93010; 99285-25; Q9967